=== PATIENT | female | born 1935 | race Caucasian/White ===

== ENCOUNTER → 2016-09-03 | Outpatient (CLI) | payer MEDICARE, OTHER ==
[~2016-09-03] MED LIST: ACET65TA OR; AMLO5TAB OR; ASPI325T OR; CALCIUM PO; COLA100C2 OR; DIOV80TA OR; LOPR50TA OR; MULTIVIT PO; PREVACID PO; VIT D PO; VITA500C OR
--- NOTE | 2016-09-03 14:54 | REP ---
LEFT ANKLE, FOUR VIEWS: HISTORY: Pain. There is no acute fracture or dislocation. The joint space is normal in appearance. IMPRESSION: There is no acute fracture or dislocation. Signed by Angelo Ellis MD 09/03/2016 03:03 P
== END ==
LOC: M WUC 14:12
PROVIDERS: ATTEND Physician Assistant
DX: M25.572 Pain in left ankle and joints of left foot (principal)

== ENCOUNTER → 2016-09-06 | Outpatient (CLI) | payer MEDICARE, OTHER ==
--- NOTE | 2016-09-06 14:03 | REP ---
SOFT-TISSUE ULTRASOUND LEFT ANKLE. Nonvascular. HISTORY: Swelling of the left ankle times 2 weeks. No known injury. Pain. Comparison radiographs September 03, 2016. FINDINGS: Soft tissue scanning is at performed at the medial aspect of the ankle in the area of swelling and pain. A small amount of fluid is seen at the level of the medial malleolus adjacent to a flexor tendon. This is compatible with a tendon sheath fluid. No disruption is seen in the tendon. IMPRESSION: Findings consistent with tendon sheath effusion question tendonitis. Signed by Lee Hernandez MD 09/06/2016 04:49 P
== END ==
LOC: M RAD 12:49
PROVIDERS: ATTEND Physician Assistant
DX: M25.572 Pain in left ankle and joints of left foot (principal); M25.472 Effusion, left ankle

== ENCOUNTER → 2017-01-31 | Outpatient (REF) | payer MEDICARE, OTHER ==
[2017-01-31 12:02] LABS: MEAN CORPUSCULAR HEMOGLOBIN 26.9 pg (27.0-33.0); MEAN CORPUSCULAR VOLUME 84.2 fl (80.0-96.0); PLATELET COUNT, AUTOMATED 140 10^3/uL (150-450); WHITE BLOOD COUNT 3.5 10^3/uL (4.0-10.0)
[2017-01-31 12:50] LABS: ALBUMIN 3.7 GM/DL (3.2-5.2); ALBUMIN/GLOBULIN RATIO 1.12 (1.00-1.93); ALKALINE PHOSPHATASE 79 U/L (45-117); ALT/SGPT 18 U/L (12-78); ANION GAP 7 MEQ/L (8-16); AST/SGOT 15 U/L (7-37); BILIRUBIN,TOTAL 0.7 MG/DL (0.2-1.0); BLOOD UREA NITROGEN 23 MG/DL (7-18); CALCIUM LEVEL 8.3 MG/DL (8.8-10.2); CARBON DIOXIDE LEVEL 30 MEQ/L (21-32); CHLORIDE LEVEL 108 MEQ/L (98-107); CREATININE FOR GFR 0.76 MG/DL (0.55-1.02); GLOMERULAR FILTRATION RATE > 60.0 (>32); GLUCOSE, FASTING 85 MG/DL (83-110); POTASSIUM SERUM 4.2 MEQ/L (3.5-5.1); SODIUM LEVEL 145 MEQ/L (136-145)
== END ==
LOC: M SFHCPLAZ 10:18
PROVIDERS: ATTEND Internal Medicine
DX: D69.6 Thrombocytopenia, unspecified (principal); I10 Essential (primary) hypertension

== ENCOUNTER → 2017-04-26 | Outpatient (CLI) | payer MEDICARE, OTHER ==
[2017-04-26 11:05] LABS: COLLAGEN ADP 146 SECONDS (56-103); COLLAGEN EPINEPHRINE > 300 SECONDS (74-162)
== END ==
LOC: M LAB 10:20
DX: H02.423 Myogenic ptosis of bilateral eyelids (principal)
CPT/HCPCS: 36415

== ENCOUNTER → 2017-05-06 | Day surgery (SDC) | payer MEDICARE, OTHER ==
[~2017-05-06] MED LIST changes: -ACET65TA OR; -AMLO5TAB OR; -ASPI325T OR; +BUPIVACAINE 0.75% 10 ML VIAL As Ordered; -CALCIUM PO; +CIPROFLOXACIN 0.3% OPHTH OINTMENT As Ordered; -COLA100C2 OR; -DIOV80TA OR; +HYALURONIDASE 150UNIT/ML 1ML VIAL (AMPHADASE) (J3470) As Ordered; +LIDOCAINE 1% MDV 20ML VIAL SQ; +LIDOCAINE 2% INJ 100 MG/5 ML SDV (FOR ANES.) As Ordered; +LIDOCAINE W/EPINEPHRINE 1% 20ML VIAL As Ordered; -LOPR50TA OR; +LR 500 ML IV; +MIDAZOLAM INJ 2 MG/2 ML VIAL (J2250) As Ordered; -MULTIVIT PO; +ONDANSETRON 4MG/2ML VIAL (J2405) As Ordered; -PREVACID PO; +PROPOFOL 200 MG/20 ML VIAL As Ordered; +ROCURONIUM BROMIDE 50 MG/5 ML VIAL As Ordered; +TOBRADEX OPHTH OINT 3.5 GM As Ordered; -VIT D PO; -VITA500C OR; +dexameTHASONE 4 MG/ML 1ML VIAL (J1100) IV; +fentaNYL 100 MCG/2 ML INJECTION (J3010) As Ordered
[2017-05-06 07:25] LABS: COLLAGEN EPINEPHRINE 205 SECONDS (74-162)
[2017-05-06 07:39] LABS: COLLAGEN ADP 125 SECONDS (56-103)
== END | disposition home or self-care (01) ==
LOC: M SDC 06:17
DX: H02.423 Myogenic ptosis of bilateral eyelids (principal); Z53.09 Procedure and treatment not carried out because of other contraindication
CPT/HCPCS: 36415

== ENCOUNTER → 2017-05-16 | Outpatient (CLI) | payer MEDICARE, OTHER ==
[2017-05-16 13:10] LABS: COLLAGEN EPINEPHRINE 187 SECONDS (74-162)
[2017-05-16 13:15] LABS: COLLAGEN ADP 131 SECONDS (56-103)
== END ==
LOC: M LAB 11:10
DX: H02.423 Myogenic ptosis of bilateral eyelids (principal)
CPT/HCPCS: 36415

== ENCOUNTER → 2017-07-08 | Outpatient (REF) | payer MEDICARE, OTHER ==
[2017-07-08 10:44] LABS: INR 1.12; PROTHROMBIN TIME 14.6 SECONDS (12.4-14.5)
[2017-07-08 10:45] LABS: PARTIAL THROMBOPLASTIN TIME 38.9 SECONDS (26.8-37.9)
[2017-07-08 10:47] LABS: COLLAGEN EPINEPHRINE 165 SECONDS (74-162)
[2017-07-08 10:53] LABS: COLLAGEN ADP 144 SECONDS (56-103)
[2017-07-10 14:13] LABS: COAGULATION FACTOR XI ACTIVITY 81 % (60-150); COAGULATION FACTOR XII ACTIVIT 78 % (50-150)
[2017-07-17 00:06] LABS: F8 ACTIVITY FOR F8 PANEL 51 % (57-163); F8 ACTIVITY vWB FOR F8 PANEL 61 % (50-200); F8 ANTIGEN FOR F8 PANEL 72 % (50-200); HMW KININOGEN ACTIVITY 89 % (.); INTERPRETATION: Note (.)
[2017-07-17 00:06] LABS: PREKALLIKREIN ASSAY 138 % (.)
== END ==
LOC: M LAB REF 10:09
DX: R79.1 Abnormal coagulation profile (principal)
CPT/HCPCS: 85246

== ENCOUNTER → 2017-07-19 | Outpatient (REF) | payer MEDICARE, OTHER ==
[2017-07-19 13:44] LABS: RHEUMATOID FACTOR QUANT < 10.0 IU/ML (<15.0)
[2017-07-19 13:44] LABS: INR 1.13; PROTHROMBIN TIME 14.7 SECONDS (12.4-14.5)
[2017-07-19 13:45] LABS: PARTIAL THROMBOPLASTIN TIME 38.8 SECONDS (26.8-37.9)
[2017-07-19 13:55] LABS: COLLAGEN EPINEPHRINE 233 SECONDS (74-162)
[2017-07-19 14:03] LABS: ERYTHROCYTE SEDIMENTATION RATE 15 mm/hr (0-30)
[2017-07-19 14:18] LABS: COLLAGEN ADP 124 SECONDS (56-103)
[2017-07-20 14:10] LABS: ANTINUCLEAR ANTIBODIES DIRECT Negative (Negative)
[2017-07-23 00:06] LABS: F8 ACTIVITY FOR F8 PANEL 28 % (57-163); F8 ACTIVITY vWB FOR F8 PANEL <10 % (50-200); F8 ANTIGEN FOR F8 PANEL 16 % (50-200); INTERPRETATION: Note (.)
== END ==
LOC: M LAB REF 13:19
DX: R79.1 Abnormal coagulation profile (principal)
CPT/HCPCS: 85246

== ENCOUNTER → 2017-07-24 | Outpatient (REF) | payer MEDICARE, OTHER ==
[2017-07-24 11:37] LABS: COLLAGEN ADP 128 SECONDS (56-103); COLLAGEN EPINEPHRINE 211 SECONDS (74-162)
[2017-07-24 11:58] LABS: INR 1.07; PROTHROMBIN TIME 14.1 SECONDS (12.4-14.5)
== END ==
LOC: M LAB REF 11:00
DX: R79.1 Abnormal coagulation profile (principal)
CPT/HCPCS: 85610

== ENCOUNTER → 2017-08-06 | Outpatient (REF) | payer MEDICARE, OTHER | LOC: M LAB REF 12:55 | DX: R79.1 Abnormal coagulation profile (principal) | CPT/HCPCS: 85245 ==

== ENCOUNTER 2017-08-10 02:05 | Emergency (ER) | payer MEDICARE, OTHER ==
[2017-08-10] MEDS: METOPROLOL TART 50 MG TAB PO (02:45)
[2017-08-10 02:53] LABS: INR 1.09; PROTHROMBIN TIME 14.3 SECONDS (12.4-14.5)
[2017-08-10 02:54] LABS: BASO % 0.5 % (0.0-1.0); EOS % 0.9 % (0.0-3.0); HEMATOCRIT 40.2 % (36.0-47.0); HEMOGLOBIN 13.1 g/dl (12.0-15.5); IMMATURE GRANULOCYTE % 0.7 % (0-3.0); LYMPH # 1.8 10^3/uL (1.5-4.5); LYMPH % 41.9 % (24.0-44.0); MEAN CORPUSCULAR HEMOGLOBIN 26.7 pg (27.0-33.0); MEAN CORPUSCULAR HGB CONC 32.6 g/dl (32.0-36.5); MEAN CORPUSCULAR VOLUME 81.9 fl (80.0-96.0); MONO % 22.4 % (0.0-5.0); NEUTROPHILS # 1.4 10^3/uL (1.8-7.7); NEUTROPHILS % 33.6 % (36.0-66.0); PARTIAL THROMBOPLASTIN TIME 37.4 SECONDS (26.8-37.9); PLATELET COUNT, AUTOMATED 111 10^3/uL (150-450); RED BLOOD COUNT 4.91 10^6/uL (4.00-5.40); RED CELL DISTRIBUTION WIDTH 13.9 % (11.5-14.5); WHITE BLOOD COUNT 4.3 10^3/uL (4.0-10.0)
[2017-08-10 03:02] LABS: ANION GAP 5 MEQ/L (8-16); BLOOD UREA NITROGEN 23 MG/DL (7-18); CALCIUM LEVEL 9.1 MG/DL (8.8-10.2); CARBON DIOXIDE LEVEL 30 MEQ/L (21-32); CHLORIDE LEVEL 109 MEQ/L (98-107); CK-MB VALUE MASS 1.4 NG/ML (<3.6); CPK CREATINE PHOSPHOKINASE 115 U/L (26-192); CREATININE FOR GFR 0.87 MG/DL (0.55-1.30); GLOMERULAR FILTRATION RATE > 60.0 (>32); GLUCOSE, FASTING 122 MG/DL (70-100); MB/CK RELATIVE INDEX 1.21 (< OR =4); POTASSIUM SERUM 4.1 MEQ/L (3.5-5.1); SODIUM LEVEL 144 MEQ/L (136-145); TROPONIN I < 0.02 NG/ML (< 0.10)
[2017-08-10] MEDS: DIGOXIN INJ 0.5 MG/2 ML AMP (J1160) IV (03:39)
[2017-08-10] MEDS: NS 500 ML IV (04:00)
[2017-08-10] MEDS: METOPROLOL TART 25 MG TABLET PO (04:45)
== END 2017-08-10 05:35 | disposition home or self-care (01) ==
LOC: M ED 02:05
DX: I48.91 Unspecified atrial fibrillation (principal); I10 Essential (primary) hypertension; K21.9 Gastro-esophageal reflux disease without esophagitis; D68.0 Von Willebrand disease; Z79.899 Other long term (current) drug therapy; Z91.040 Latex allergy status; Z88.0 Allergy status to penicillin; Z88.8 Allergy status to other drugs, medicaments and biological substances

== ENCOUNTER 2017-08-10 11:56 | Inpatient (IN) | payer MEDICARE, OTHER ==
[2017-08-10 12:51] LABS: BASO % 0.4 % (0.0-1.0); HEMATOCRIT 39.5 % (36.0-47.0); HEMOGLOBIN 12.8 g/dl (12.0-15.5); LYMPH # 1.4 10^3/uL (1.5-4.5); LYMPH % 28.4 % (24.0-44.0); MEAN CORPUSCULAR HEMOGLOBIN 26.4 pg (27.0-33.0); MEAN CORPUSCULAR HGB CONC 32.4 g/dl (32.0-36.5); MEAN CORPUSCULAR VOLUME 81.4 fl (80.0-96.0); MONO # 1.2 10^3/uL (0.0-0.8); MONO % 25.9 % (0.0-5.0); NEUTROPHILS # 2.1 10^3/uL (1.8-7.7); NEUTROPHILS % 44.3 % (36.0-66.0); PLATELET COUNT, AUTOMATED 106 10^3/uL (150-450); RED BLOOD COUNT 4.85 10^6/uL (4.00-5.40); RED CELL DISTRIBUTION WIDTH 13.8 % (11.5-14.5); WHITE BLOOD COUNT 4.8 10^3/uL (4.0-10.0)
[2017-08-10 13:00] LABS: INR 1.11; PROTHROMBIN TIME 14.5 SECONDS (12.4-14.5)
[2017-08-10 13:01] LABS: PARTIAL THROMBOPLASTIN TIME 36.9 SECONDS (26.8-37.9)
[2017-08-10 13:32] LABS: ANION GAP 8 MEQ/L (8-16); BLOOD UREA NITROGEN 20 MG/DL (7-18); CALCIUM LEVEL 8.9 MG/DL (8.8-10.2); CARBON DIOXIDE LEVEL 26 MEQ/L (21-32); CHLORIDE LEVEL 110 MEQ/L (98-107); CPK CREATINE PHOSPHOKINASE 119 U/L (26-192); CREATININE FOR GFR 0.83 MG/DL (0.55-1.30); FREE T4 1.16 NG/DL (0.76-1.46); GLOMERULAR FILTRATION RATE > 60.0 (>32); GLUCOSE, FASTING 105 MG/DL (70-100); POTASSIUM SERUM 4.1 MEQ/L (3.5-5.1); SODIUM LEVEL 144 MEQ/L (136-145); TROPONIN I < 0.02 NG/ML (< 0.10)
[2017-08-10 13:38] LABS: CK-MB VALUE MASS 1.4 NG/ML (<3.6); MB/CK RELATIVE INDEX 1.17 (< OR =4)
[2017-08-10] MEDS: DIGOXIN INJ 0.5 MG/2 ML AMP (J1160) IV (14:31)
[2017-08-10] MEDS: METOPROLOL TART 25 MG TABLET PO ×2 (14:34→22:32)
[2017-08-10] MEDS: METOPROLOL TART 50 MG TAB PO (14:34)
[2017-08-10] MEDS: METOPROLOL 5 MG/5 ML VIAL IV ×3 (14:44→14:59)
[2017-08-10] MEDS: RIVAROXABAN 20 MG TAB (XARELTO) PO (15:09)
[2017-08-10] MEDS ORDERED: ACETAMINOPHEN TAB 650MG DOSE (2X325MG) PO (18:30)
[2017-08-11 05:21] LABS: FREE T4 1.13 NG/DL (0.76-1.46)
[2017-08-11 05:26] LABS: DIGOXIN LEVEL 1.1 NG/ML (0.5-2.0)
[2017-08-11 07:17] LABS: ANION GAP 9 MEQ/L (8-16); BLOOD UREA NITROGEN 24 MG/DL (7-18); CALCIUM LEVEL 8.5 MG/DL (8.8-10.2); CARBON DIOXIDE LEVEL 26 MEQ/L (21-32); CHLORIDE LEVEL 110 MEQ/L (98-107); CREATININE FOR GFR 0.89 MG/DL (0.55-1.30); GLOMERULAR FILTRATION RATE > 60.0 (>32); GLUCOSE, FASTING 96 MG/DL (70-100); POTASSIUM SERUM 3.9 MEQ/L (3.5-5.1); SODIUM LEVEL 145 MEQ/L (136-145)
[2017-08-11] MEDS: VITAMIN D 1,000 INTERNATIONAL UNITS TABLET PO (09:26)
[2017-08-11] MEDS: RIVAROXABAN 15 MG TAB (XARELTO) PO ×2 (09:26→20:52)
[2017-08-11] MEDS: DIGOXIN 0.125 MG TAB PO (14:36)
[2017-08-11] MEDS: ATENOLOL 25 MG TAB PO (18:50)
[2017-08-12 05:53] LABS: BASO % 0.3 % (0.0-1.0); EOS % 0.5 % (0.0-3.0); HEMATOCRIT 37.7 % (36.0-47.0); HEMOGLOBIN 12.2 g/dl (12.0-15.5); IMMATURE GRANULOCYTE % 0.8 % (0-3.0); LYMPH # 1.5 10^3/uL (1.5-4.5); LYMPH % 40.1 % (24.0-44.0); MEAN CORPUSCULAR HEMOGLOBIN 26.5 pg (27.0-33.0); MEAN CORPUSCULAR HGB CONC 32.4 g/dl (32.0-36.5); MEAN CORPUSCULAR VOLUME 81.8 fl (80.0-96.0); MONO # 0.9 10^3/uL (0.0-0.8); MONO % 24.9 % (0.0-5.0); NEUTROPHILS # 1.3 10^3/uL (1.8-7.7); NEUTROPHILS % 33.4 % (36.0-66.0); RED BLOOD COUNT 4.61 10^6/uL (4.00-5.40); RED CELL DISTRIBUTION WIDTH 13.8 % (11.5-14.5); WHITE BLOOD COUNT 3.8 10^3/uL (4.0-10.0)
[2017-08-12] MEDS: ATENOLOL 25 MG TAB PO ×2 (06:00→18:12)
[2017-08-12 06:22] LABS: ANION GAP 5 MEQ/L (8-16); BLOOD UREA NITROGEN 25 MG/DL (7-18); CALCIUM LEVEL 8.3 MG/DL (8.8-10.2); CARBON DIOXIDE LEVEL 30 MEQ/L (21-32); CHLORIDE LEVEL 109 MEQ/L (98-107); CREATININE FOR GFR 0.92 MG/DL (0.55-1.30); GLOMERULAR FILTRATION RATE > 60.0 (>32); GLUCOSE, FASTING 106 MG/DL (70-100); POTASSIUM SERUM 3.7 MEQ/L (3.5-5.1); SODIUM LEVEL 144 MEQ/L (136-145)
[2017-08-12 06:23] LABS: PLATELET COUNT, AUTOMATED 91 10^3/uL (150-450)
[2017-08-12 06:24] LABS: IMMATURE PLATELET FRACTION % 11.1 % (0.0-9.6)
[2017-08-12] MEDS: VITAMIN D 1,000 INTERNATIONAL UNITS TABLET PO (08:18)
[2017-08-12] MEDS: RIVAROXABAN 15 MG TAB (XARELTO) PO ×2 (08:18→20:49)
[2017-08-12] MEDS: DIGOXIN 0.125 MG TAB PO (08:18)
[2017-08-13] MEDS: ATENOLOL 25 MG TAB PO (05:34)
[2017-08-13 05:45] LABS: BASO % 0.6 % (0.0-1.0); EOS % 0.8 % (0.0-3.0); HEMATOCRIT 37.7 % (36.0-47.0); HEMOGLOBIN 12.3 g/dl (12.0-15.5); IMMATURE GRANULOCYTE % 0.3 % (0-3.0); LYMPH # 1.4 10^3/uL (1.5-4.5); LYMPH % 39.8 % (24.0-44.0); MEAN CORPUSCULAR HEMOGLOBIN 26.8 pg (27.0-33.0); MEAN CORPUSCULAR HGB CONC 32.6 g/dl (32.0-36.5); MEAN CORPUSCULAR VOLUME 82.1 fl (80.0-96.0); MONO # 0.8 10^3/uL (0.0-0.8); MONO % 22.7 % (0.0-5.0); NEUTROPHILS # 1.3 10^3/uL (1.8-7.7); NEUTROPHILS % 35.8 % (36.0-66.0); RED BLOOD COUNT 4.59 10^6/uL (4.00-5.40); RED CELL DISTRIBUTION WIDTH 13.8 % (11.5-14.5); WHITE BLOOD COUNT 3.6 10^3/uL (4.0-10.0)
[2017-08-13 06:05] LABS: ANION GAP 8 MEQ/L (8-16); BLOOD UREA NITROGEN 25 MG/DL (7-18); CALCIUM LEVEL 8.2 MG/DL (8.8-10.2); CARBON DIOXIDE LEVEL 27 MEQ/L (21-32); CHLORIDE LEVEL 109 MEQ/L (98-107); CREATININE FOR GFR 0.86 MG/DL (0.55-1.30); GLOMERULAR FILTRATION RATE > 60.0 (>32); GLUCOSE, FASTING 101 MG/DL (70-100); SODIUM LEVEL 144 MEQ/L (136-145)
[2017-08-13 06:13] LABS: PLATELET COUNT, AUTOMATED 93 10^3/uL (150-450)
[2017-08-13 07:58] LABS: DIGOXIN LEVEL 0.9 NG/ML (0.5-2.0)
[2017-08-13] MEDS: DIGOXIN 0.125 MG TAB PO (08:18)
[2017-08-13] MEDS: VITAMIN D 1,000 INTERNATIONAL UNITS TABLET PO (08:19)
[2017-08-13] MEDS: RIVAROXABAN 15 MG TAB (XARELTO) PO (08:19)
== END 2017-08-13 11:21 | disposition home or self-care (01) | DRG 309 ==
LOC: M ED 11:56 → M ED INP 18:28 → M PCU 22:11
DX: I48.1 Persistent atrial fibrillation (principal); D68.0 Von Willebrand disease; Z79.82 Long term (current) use of aspirin; Z79.899 Other long term (current) drug therapy; Z88.0 Allergy status to penicillin; Z88.8 Allergy status to other drugs, medicaments and biological substances; Z88.1 Allergy status to other antibiotic agents; Z91.041 Radiographic dye allergy status; K21.9 Gastro-esophageal reflux disease without esophagitis; I11.9 Hypertensive heart disease without heart failure; I27.20 Pulmonary hypertension, unspecified

== ENCOUNTER → 2017-10-07 | Outpatient (CLI) | payer MEDICARE, OTHER ==
[2017-10-07 16:15] LABS: COLLAGEN EPINEPHRINE 171 SECONDS (74-162)
[2017-10-07 16:33] LABS: COLLAGEN ADP 127 SECONDS (56-103)
== END ==
LOC: M LAB 15:07
DX: H02.423 Myogenic ptosis of bilateral eyelids (principal)
CPT/HCPCS: 36415

== ENCOUNTER 2017-10-08 12:17 | Emergency (ER) | payer MEDICARE, OTHER ==
[2017-10-08] MEDS: NS 1,000 ML IV (12:49)
[2017-10-08] MEDS: NITROGLYCERIN 0.4 MG SUBL TABLET SL ×3 (12:50→13:07)
[2017-10-08] MEDS: ASPIRIN 81 MG CHEW TABLET PO (12:50)
[2017-10-08 13:05] LABS: BASO % 0.2 % (0.0-1.0); EOS # 0.1 10^3/uL (0.0-0.50); EOS % 1.4 % (0.0-3.0); HEMATOCRIT 38.8 % (36.0-47.0); HEMOGLOBIN 12.8 g/dl (12.0-15.5); IMMATURE GRANULOCYTE % 1.2 % (0-3.0); LYMPH # 1.4 10^3/uL (1.5-4.5); MEAN CORPUSCULAR HEMOGLOBIN 26.8 pg (27.0-33.0); MEAN CORPUSCULAR VOLUME 81.2 fl (80.0-96.0); MONO # 1.3 10^3/uL (0.0-0.8); MONO % 26.1 % (0.0-5.0); NEUTROPHILS # 2.1 10^3/uL (1.8-7.7); NEUTROPHILS % 43.1 % (36.0-66.0); PLATELET COUNT, AUTOMATED 108 10^3/uL (150-450); RED BLOOD COUNT 4.78 10^6/uL (4.00-5.40); RED CELL DISTRIBUTION WIDTH 13.7 % (11.5-14.5); WHITE BLOOD COUNT 4.9 10^3/uL (4.0-10.0)
[2017-10-08 13:25] LABS: INR 2.26; PROTHROMBIN TIME 25.4 SECONDS (12.1-14.4)
[2017-10-08 13:35] LABS: ALBUMIN/GLOBULIN RATIO 1.21 (1.00-1.93); ALKALINE PHOSPHATASE 74 U/L (45-117); ALT/SGPT 23 U/L (12-78); ANION GAP 10 MEQ/L (8-16); AST/SGOT 19 U/L (7-37); BILIRUBIN,DIRECT 0.2 MG/DL (0.0-0.2); BILIRUBIN,TOTAL 0.8 MG/DL (0.2-1.0); BLOOD UREA NITROGEN 17 MG/DL (7-18); CALCIUM LEVEL 8.8 MG/DL (8.8-10.2); CARBON DIOXIDE LEVEL 26 MEQ/L (21-32); CHLORIDE LEVEL 108 MEQ/L (98-107); CPK CREATINE PHOSPHOKINASE 115 U/L (26-192); CREATININE FOR GFR 0.78 MG/DL (0.55-1.30); GLOMERULAR FILTRATION RATE > 60.0 (>32); GLUCOSE, FASTING 96 MG/DL (70-100); POTASSIUM SERUM 3.9 MEQ/L (3.5-5.1); SODIUM LEVEL 144 MEQ/L (136-145); TOTAL PROTEIN 7.3 GM/DL (6.4-8.2); TROPONIN I 0.03 NG/ML (< 0.10)
[2017-10-08 13:36] LABS: CK-MB VALUE MASS 1.7 NG/ML (<3.6); MB/CK RELATIVE INDEX 1.47 (< OR =4)
[2017-10-08 13:48] LABS: DIGOXIN LEVEL 0.9 NG/ML (0.5-2.0)
[2017-10-08 18:46] LABS: CPK CREATINE PHOSPHOKINASE 97 U/L (26-192); TROPONIN I 0.03 NG/ML (< 0.10)
[2017-10-08 18:47] LABS: CK-MB VALUE MASS 1.5 NG/ML (<3.6); MB/CK RELATIVE INDEX 1.54 (< OR =4)
== END 2017-10-08 19:23 | disposition home or self-care (01) ==
LOC: M ED 12:17
DX: R07.89 Other chest pain (principal); I10 Essential (primary) hypertension; I48.91 Unspecified atrial fibrillation; I25.10 Atherosclerotic heart disease of native coronary artery without angina pectoris; Z82.49 Family history of ischemic heart disease and other diseases of the circulatory system; Z79.899 Other long term (current) drug therapy; Z79.01 Long term (current) use of anticoagulants; Z88.0 Allergy status to penicillin; Z88.1 Allergy status to other antibiotic agents; Z88.8 Allergy status to other drugs, medicaments and biological substances; Z91.041 Radiographic dye allergy status
CPT/HCPCS: 71045

== ENCOUNTER → 2017-12-06 | Outpatient (CLI) | payer MEDICARE, OTHER | LOC: M WUC 11:26 | DX: S40.011A Contusion of right shoulder, initial encounter (principal); S40.021A Contusion of right upper arm, initial encounter; X58.XXXA Exposure to other specified factors, initial encounter; Y92.89 Other specified places as the place of occurrence of the external cause | CPT/HCPCS: 73030 ==

== ENCOUNTER → 2018-01-28 | Outpatient (REF) | payer MEDICARE, OTHER ==
[2018-01-28 10:48] LABS: HEMATOCRIT 38.4 % (36.0-47.0); HEMOGLOBIN 12.1 g/dl (12.0-15.5); MEAN CORPUSCULAR HEMOGLOBIN 25.9 pg (27.0-33.0); MEAN CORPUSCULAR HGB CONC 31.5 g/dl (32.0-36.5); MEAN CORPUSCULAR VOLUME 82.1 fl (80.0-96.0); PLATELET COUNT, AUTOMATED 111 10^3/uL (150-450); RED BLOOD COUNT 4.68 10^6/uL (4.00-5.40); RED CELL DISTRIBUTION WIDTH 14.2 % (11.5-14.5); WHITE BLOOD COUNT 4.6 10^3/uL (4.0-10.0)
[2018-01-28 10:59] LABS: ALBUMIN 3.7 GM/DL (3.2-5.2); ALBUMIN/GLOBULIN RATIO 1.09 (1.00-1.93); ALKALINE PHOSPHATASE 96 U/L (45-117); ALT/SGPT 29 U/L (12-78); ANION GAP 9 MEQ/L (8-16); AST/SGOT 25 U/L (7-37); BILIRUBIN,TOTAL 0.7 MG/DL (0.2-1.0); BLOOD UREA NITROGEN 21 MG/DL (7-18); CALCIUM LEVEL 8.4 MG/DL (8.8-10.2); CARBON DIOXIDE LEVEL 29 MEQ/L (21-32); CHLORIDE LEVEL 106 MEQ/L (98-107); CHOLESTEROL LEVEL 174 MG/DL (<200); CHOLESTEROL RISK RATIO 3.866 (<5); CREATININE FOR GFR 0.81 MG/DL (0.55-1.30); GLOMERULAR FILTRATION RATE > 60.0 (>32); GLUCOSE, FASTING 100 MG/DL (70-100); HDL CHOLESTEROL 45 MG/DL (>40); LDL CHOLESTEROL 76 MG/DL (<100); MAGNESIUM LEVEL 2.5 MG/DL (1.8-2.4); NON-HDL-C 129 MG/DL; POTASSIUM SERUM 3.8 MEQ/L (3.5-5.1); SODIUM LEVEL 144 MEQ/L (136-145); TOTAL PROTEIN 7.1 GM/DL (6.4-8.2); TRIGLYCERIDES LEVEL 265 MG/DL (<150)
== END ==
LOC: M SFHCPLAZ 08:00
DX: D69.6 Thrombocytopenia, unspecified (principal); I10 Essential (primary) hypertension
CPT/HCPCS: 83735

== ENCOUNTER → 2018-05-02 | Outpatient (REF) | payer MEDICARE, OTHER ==
[~2018-05-02] MED LIST changes: +ACET65TA PO; +AMLO5TAB OR; +AMLO5TAB6 PO; +ASPI325T OR; +ASPI325T PO; +ATEN25TA PO; +ATEN50TA2 PO; +BIOT1CAP2 PO; -BUPIVACAINE 0.75% 10 ML VIAL As Ordered; +CALC1TAB21 PO; +CALCIUM PO; +CARV25TA PO; +CENTCHW4 PO; -CIPROFLOXACIN 0.3% OPHTH OINTMENT As Ordered; +COLA100C2 OR; +DIGO0.12 PO; +DIOV80TA OR; +FEXO180T58 PO; +FLUTISP; -HYALURONIDASE 150UNIT/ML 1ML VIAL (AMPHADASE) (J3470) As Ordered; +LANS30CA PO; -LIDOCAINE 1% MDV 20ML VIAL SQ; -LIDOCAINE 2% INJ 100 MG/5 ML SDV (FOR ANES.) As Ordered; -LIDOCAINE W/EPINEPHRINE 1% 20ML VIAL As Ordered; +LOPR50TA OR; -LR 500 ML IV; -MIDAZOLAM INJ 2 MG/2 ML VIAL (J2250) As Ordered; +MULTIVIT PO; -ONDANSETRON 4MG/2ML VIAL (J2405) As Ordered; +PREVACID PO; -PROPOFOL 200 MG/20 ML VIAL As Ordered; -ROCURONIUM BROMIDE 50 MG/5 ML VIAL As Ordered; +STIM1.5S; -TOBRADEX OPHTH OINT 3.5 GM As Ordered; +VIT D PO; +VITA100067 PO; +VITA500C PO; +XARE15TA PO; -dexameTHASONE 4 MG/ML 1ML VIAL (J1100) IV; -fentaNYL 100 MCG/2 ML INJECTION (J3010) As Ordered
[2018-05-02 14:20] LABS: ALBUMIN 3.7 GM/DL (3.2-5.2); CALCIUM LEVEL 8.5 MG/DL (8.8-10.2); CREATININE FOR GFR 0.97 MG/DL (0.55-1.30); GLOMERULAR FILTRATION RATE 58.5 (>32); PHOSPHORUS LEVEL 2.4 MG/DL (2.5-4.9); POTASSIUM SERUM 3.9 MEQ/L (3.5-5.1)
== END ==
LOC: M LABDRAW1 13:07
PROVIDERS: ATTEND Internal Medicine Cardiovascular Disease
DX: I11.9 Hypertensive heart disease without heart failure (principal)

== ENCOUNTER → 2018-07-22 | Outpatient (REF) | payer MEDICARE, OTHER ==
[~2018-07-22] MED LIST changes: +ASPI-1 PO; -ASPI325T PO
[2018-07-22 10:31] LABS: HEMATOCRIT 36.6 % (36.0-47.0); HEMOGLOBIN 11.7 g/dl (12.0-15.5); MEAN CORPUSCULAR VOLUME 84.5 fl (80.0-96.0); PLATELET COUNT, AUTOMATED 99 10^3/uL (150-450); RED BLOOD COUNT 4.33 10^6/uL (4.00-5.40); WHITE BLOOD COUNT 6.1 10^3/uL (4.0-10.0)
[2018-07-22 10:58] LABS: ALBUMIN 4.2 GM/DL (3.2-5.2); BILIRUBIN,TOTAL 0.7 MG/DL (0.2-1.0); CALCIUM LEVEL 9.2 MG/DL (8.8-10.2); CHOLESTEROL RISK RATIO 4.1 (<5); CREATININE FOR GFR 1.12 MG/DL (0.55-1.30); GLOMERULAR FILTRATION RATE 49.6 (>32); MAGNESIUM LEVEL 2.2 MG/DL (1.8-2.4); POTASSIUM SERUM 3.9 MEQ/L (3.5-5.1); TOTAL PROTEIN 7.2 GM/DL (6.4-8.2)
== END ==
LOC: M SFHCPLAZ 08:16
PROVIDERS: ATTEND Internal Medicine
DX: D69.6 Thrombocytopenia, unspecified (principal); I10 Essential (primary) hypertension

== ENCOUNTER → 2018-10-07 | Outpatient (CLI) | payer MEDICARE, OTHER ==
--- NOTE | 2018-10-14 12:02 | SLEEPCENT ---
DATE OF PROCEDURE: 10/07/2018 ORDERED BY: Dr. Vergara Nocturnal polysomnography was performed for evaluation of sleep physiology in this patient with excessive daytime somnolence. 7 hours and 37 minutes of data were reviewed. There were 279 minutes of sleep identified. Sleep latency was normal at 15 minutes. Rapid eye movement (REM) latency was normal at 59-minutes. Sleep architecture was poor with periods of wake. There were two REM cycles noted. Overall sleep efficiency was 62%. Electrocardiogram showed atrial fibrillation with an average heart rate of 60 beats per minute. Electroencephalogram (EEG) showed reasonably normal waveforms for awake and sleep. There were 181 respiratory events identified of 10 seconds in duration or greater for an apnea-hypopnea index of 38.9. Having clearly established the presence of obstructive sleep apnea syndrome early in the study, testing was stopped shortly before 01:00 a.m. for the application of pressure therapy. The patient was fit with a [employer] full-face mask of small size, 4 cm of water pressure were applied to the circuit, and the lights were extinguished. Throughout the remaining portions of study, pressure titration was performed to an optimal pressure of +12 with which the patient slept through REM without respiratory event or oxygen desaturation. IMPRESSION: Obstructive sleep apnea syndrome (G47.33). Apnea-hypopnea index 38.9. RECOMMENDATIONS: Nightly use of pressure therapy 12 cm of water.
== END ==
LOC: M SLEEP 19:39
PROVIDERS: ATTEND Internal Medicine Pulmonary Disease
DX: G47.33 Obstructive sleep apnea (adult) (pediatric) (principal)

== ENCOUNTER → 2019-01-19 | Outpatient (CLI) | payer MEDICARE, OTHER ==
[2019-01-19 12:52] LABS: BASO % 0.2 % (0.0-1.0); EOS % 0.4 % (0.0-3.0); HEMATOCRIT 31.1 % (36.0-47.0); HEMOGLOBIN 9.7 g/dl (12.0-15.5); LYMPH # 1.1 10^3/uL (1.5-5.0); LYMPH % 24.6 % (24.0-44.0); MEAN CORPUSCULAR HEMOGLOBIN 26.2 pg (27.0-33.0); MEAN CORPUSCULAR HGB CONC 31.2 g/dl (32.0-36.5); MEAN CORPUSCULAR VOLUME 84.1 fl (80.0-96.0); MONO # 1.1 10^3/uL (0.0-0.8); NEUTROPHILS # 2.3 10^3/uL (1.5-8.5); NEUTROPHILS % 50.7 % (36.0-66.0); WHITE BLOOD COUNT 4.6 10^3/uL (4.0-10.0)
[2019-01-19 12:54] LABS: ALBUMIN 3.8 GM/DL (3.2-5.2); BILIRUBIN,TOTAL 0.6 MG/DL (0.2-1.0); CALCIUM LEVEL 8.9 MG/DL (8.8-10.2); CHOLESTEROL RISK RATIO 3.288 (<5); CREATININE FOR GFR 1.13 MG/DL (0.55-1.30); GLOMERULAR FILTRATION RATE 49.1 (>32); MAGNESIUM LEVEL 2.1 MG/DL (1.8-2.4); TOTAL PROTEIN 7.2 GM/DL (6.4-8.2)
[2019-01-19 13:01] LABS: PLATELET COUNT, AUTOMATED 92 10^3/uL (150-450)
== END ==
LOC: M WUC 09:00
PROVIDERS: ATTEND Internal Medicine
DX: D69.6 Thrombocytopenia, unspecified (principal); I10 Essential (primary) hypertension

== ENCOUNTER → 2019-01-26 | Outpatient (REF) | payer MEDICARE, OTHER ==
[~2019-01-26] MED LIST changes: -DIGO0.12 PO; +DIGO0.123 PO
[2019-01-26 13:33] LABS: BASO % 0.5 % (0.0-1.0); EOS % 0.5 % (0.0-3.0); HEMATOCRIT 32.3 % (36.0-47.0); HEMOGLOBIN 9.9 g/dl (12.0-15.5); LYMPH # 0.9 10^3/uL (1.5-5.0); LYMPH % 23.4 % (24.0-44.0); MEAN CORPUSCULAR HEMOGLOBIN 25.7 pg (27.0-33.0); MEAN CORPUSCULAR HGB CONC 30.7 g/dl (32.0-36.5); MEAN CORPUSCULAR VOLUME 83.9 fl (80.0-96.0); MONO # 1.2 10^3/uL (0.0-0.8); MONO % 29.2 % (0.0-5.0); NEUTROPHILS # 1.8 10^3/uL (1.5-8.5); NEUTROPHILS % 45.6 % (36.0-66.0); RED BLOOD COUNT 3.85 10^6/uL (4.00-5.40)
[2019-01-26 13:35] LABS: PLATELET COUNT, AUTOMATED 91 10^3/uL (150-450)
== END ==
LOC: M SFHCPLAZ 11:36
PROVIDERS: ATTEND Internal Medicine
DX: D69.6 Thrombocytopenia, unspecified (principal)
CPT/HCPCS: 36415; 85025; 85049; 85055; G0463

== ENCOUNTER → 2019-04-06 | Outpatient (CLI) | payer MEDICARE, OTHER ==
[~2019-04-06] MED LIST changes: +CALCCAP4 PO; +CARV12.5 PO; +CHLO125TA PO; +FERR325T3 PO; +LOSA50TA88 PO; +QC A650T3 PO; +SPIR-10 PO; +VITA100054 PO; +XARE20TA PO
--- NOTE | 2019-04-06 10:10 | REP ---
Clinical: Hepatic cysts. Comparison: MRI dated 09/08/2012. Technique: Real time chaves scale and color evaluation using curved array transducer. Findings: Liver demonstrates normal size, contour, and parenchymal echo texture with multiple small scattered simple cysts up to 9 mm consistent with findings on prior MRI. Visualized portions of the pancreas are normal. The gallbladder is unremarkable and without gallstones, wall thickening, or pericholecystic fluid. No biliary ductal dilatation is appreciated and the common bile duct measures 5.2 mm diameter. The right kidney is normal in reniform shape without hydronephrosis and measures 8.9 x 5.4 x 4.4 cm. No ascites. Impression: 1. Small scattered hepatic cysts similar to MRI dated 2012. No further hepatic abnormality identified. 2. Mild atrophy to the right kidney is suspected. Electronically Signed by Favian Mejias MD 04/06/2019 10:01 A
== END ==
LOC: M RAD 08:46
PROVIDERS: ATTEND Internal Medicine Gastroenterology
DX: R93.3 Abnormal findings on diagnostic imaging of other parts of digestive tract (principal); K76.89 Other specified diseases of liver

== ENCOUNTER 2019-05-19 06:59 | Day surgery (SDC) | payer MEDICARE, OTHER ==
[~2019-05-19] VITALS: Ht 165.1 cm; Wt 68.5 kg
[~2019-05-19 06:59] MED LIST changes: +LIDOCAINE 2% INJ 100 MG/5 ML SDV (FOR ANES.) As Ordered ONE; +MULTCAP PO; +VITAD1000T PO; +fentaNYL 100 MCG/2 ML INJECTION (J3010) As Ordered ONE; +propofoL 200 MG/20 ML VIAL As Ordered ONE
[2019-05-19] MEDS ORDERED: propofoL 200 MG/20 ML VIAL As Ordered ONE ×3 (07:02→09:09)
[2019-05-19] MEDS ORDERED: NS 1,000 ML IV ONE (08:00)
--- NOTE | 2019-05-19 09:23 | ROOR ---
Patient Name: Valencia Fischer Procedure Date: 05/19/2019 8:19 AM Date of : 1935 Age: 84 Room: [facility] Gender: Female Note Status: Finalized Procedure: Upper GI endoscopy Indications: Iron deficiency anemia Providers: Jerry GAN MD Referring MD: Dar Quinn MD, Mireille Bonilla MD Requesting Provider: Medicines: Monitored Anesthesia Care Complications: No immediate complications. Procedure: Pre-Anesthesia Assessment: - The heart rate, respiratory rate, oxygen saturations, blood pressure, adequacy of pulmonary ventilation, and response to care were monitored throughout the procedure. The Endoscope was introduced through the mouth, and advanced to the second part of duodenum. The upper GI endoscopy was accomplished without difficulty. The patient tolerated the procedure well. Findings: Multiple 5 to 10 mm pedunculated and sessile polyps with stigmata of recent bleeding were found in the cardia, in the gastric fundus and in the gastric body. The polyp was removed with a cold snare. Polyp resection was incomplete, and the resected tissue was partially retrieved. The exam was otherwise without abnormality. Biopsies for histology were taken with a cold forceps in the second portion of the duodenum and in the third portion of the duodenum for evaluation of celiac disease. Impression: - Multiple gastric polyps. (100's small medium and large fundic gland appearing polyps, some slightly erythematous/hemorrhagic appearing). Multiple of the larger polyps removed. Polyp resection was incomplete, and the resected tissue was partially retrieved. - The examination was otherwise normal. - Biopsies were taken with a cold forceps for evaluation of celiac disease. Recommendation: - Await pathology results. - To reduce size and number of the fundic gland polyps, we should try to remove PPI meds (lansoprazole), and change to [id number] and/or sucralfate. - Discontinue Prevacid (lansoprazole). - Use sucralfate tablets 1 gram PO QID. - Use Pepcid (famotidine) 20 mg PO BID. - (the script was sent to your pharmacy on file) Jerry Gan MD Jerry GAN MD 05/19/2019 9:22:22 AM Electronically signed by Jerry GAN MD Number of Addenda: 0 Note Initiated On: 05/19/2019 8:19 AM Estimated Blood Loss: Estimated blood loss: none.
--- NOTE | 2019-05-19 09:26 | ROOR ---
Patient Name: Valencia Fischer Procedure Date: 05/19/2019 8:20 AM Date of : 1935 Age: 84 Room: [facility] Gender: Female Note Status: Finalized Procedure: Colonoscopy Indications: Iron deficiency anemia Providers: Jerry GAN MD Referring MD: Dar Quinn MD, Mireille Bonilla MD Requesting Provider: Medicines: Monitored Anesthesia Care Complications: No immediate complications. Procedure: Pre-Anesthesia Assessment: - The heart rate, respiratory rate, oxygen saturations, blood pressure, adequacy of pulmonary ventilation, and response to care were monitored throughout the procedure. The Colonoscope was introduced through the anus and advanced to the cecum, identified by appendiceal orifice and ileocecal valve. The colonoscopy was technically difficult and complex due to multiple diverticula in the colon. The patient tolerated the procedure well. The quality of the bowel preparation was good. Findings: The perianal and digital rectal examinations were normal. Two sessile polyps were found in the sigmoid colon and ascending colon. The polyps were diminutive in size. These polyps were removed with a cold snare. Resection and retrieval were complete. To prevent bleeding after the polypectomy, one hemostatic clip was successfully placed at the proximal ascending colon polypectomy site . There was no bleeding at the end of the procedure. Multiple small and large-mouthed diverticula were found in the sigmoid colon and descending colon. There was evidence of diverticular spasm. Internal hemorrhoids were found during retroflexion. The exam was otherwise without abnormality on direct and retroflexion views. Impression: - Two diminutive polyps in the sigmoid colon and in the ascending colon, removed with a cold snare. Resected and retrieved. Clip was placed. - Moderate diverticulosis in the sigmoid colon and in the descending colon. There was evidence of diverticular spasm. - Internal hemorrhoids. - The examination was otherwise normal on direct and retroflexion views. Recommendation: - Telephone endoscopist for pathology results in 2 weeks. Jerry Gan MD Jerry GAN MD 05/19/2019 9:25:38 AM Electronically signed by Jerry GAN MD Number of Addenda: 0 Note Initiated On: 05/19/2019 8:20 AM Estimated Blood Loss: Estimated blood loss: none.
[2019-05-19 10:00] VITALS: BP 137/58
== END 2019-05-19 10:05 | disposition home or self-care (01) ==
LOC: M OPP 06:59
PROVIDERS: ATTEND Internal Medicine Gastroenterology
DX: D50.9 Iron deficiency anemia, unspecified (principal); K57.30 Diverticulosis of large intestine without perforation or abscess without bleeding; K63.5 Polyp of colon; K64.8 Other hemorrhoids; K31.7 Polyp of stomach and duodenum; I48.91 Unspecified atrial fibrillation; G47.30 Sleep apnea, unspecified; I10 Essential (primary) hypertension; K21.9 Gastro-esophageal reflux disease without esophagitis; M19.90 Unspecified osteoarthritis, unspecified site; R06.83 Snoring; Z87.09 Personal history of other diseases of the respiratory system; Z79.01 Long term (current) use of anticoagulants; Z79.899 Other long term (current) drug therapy; Z91.040 Latex allergy status; Z88.0 Allergy status to penicillin; Z88.1 Allergy status to other antibiotic agents; Z88.8 Allergy status to other drugs, medicaments and biological substances
CPT/HCPCS: 43239; 43251; 45385; 88305; J3010

== ENCOUNTER 2019-07-07 15:50 | Inpatient (IN) | payer MEDICARE, OTHER ==
[2019-07-07] VITALS (9 sets, daily range): BP systolic 123–153; BP diastolic 59–67
[~2019-07-07] VITALS: Ht 165.1 cm; Wt 59.4 kg
[~2019-07-07 15:50] MED LIST changes: -ACET-897 PO; -BIOT1CAP3 PO; -CALCTAB7 PO; -FAMO40TA3 PO
[2019-07-07 17:05] LABS: BASO % 0.2 % (0.0-1.0); EOS % 0.2 % (0.0-3.0); LYMPH # 1.4 10^3/uL (1.5-5.0); MEAN CORPUSCULAR HEMOGLOBIN 25.9 pg (27.0-33.0); MEAN CORPUSCULAR HGB CONC 31.6 g/dl (32.0-36.5); MEAN CORPUSCULAR VOLUME 82.1 fl (80.0-96.0); MONO # 1.1 10^3/uL (0.0-0.8); MONO % 26.8 % (0.0-5.0); NEUTROPHILS # 1.7 10^3/uL (1.5-8.5); NEUTROPHILS % 40.3 % (36.0-66.0); RED BLOOD COUNT 2.51 10^6/uL (4.00-5.40); WHITE BLOOD COUNT 4.3 10^3/uL (4.0-10.0)
[2019-07-07 17:09] LABS: HEMATOCRIT 20.6 % (36.0-47.0); HEMOGLOBIN 6.5 g/dl (12.0-15.5); PLATELET COUNT, AUTOMATED 83 10^3/uL (150-450)
[2019-07-07 17:18] LABS: INR 3.02; PROTHROMBIN TIME 31.2 SECONDS (11.8-14.0)
[2019-07-07 17:19] LABS: BLOOD UREA NITROGEN 32 MG/DL (7-18); CALCIUM LEVEL 9.2 MG/DL (8.8-10.2); CARBON DIOXIDE LEVEL 29 MEQ/L (21-32); CHLORIDE LEVEL 104 MEQ/L (98-107); CK-MB VALUE MASS 1.5 NG/ML (<3.6); CPK CREATINE PHOSPHOKINASE 133 U/L (26-192); GLOMERULAR FILTRATION RATE 38.2 (>32); GLUCOSE, FASTING 112 MG/DL (70-100); MB/CK RELATIVE INDEX 1.13 (< OR =4); PARTIAL THROMBOPLASTIN TIME 58.1 SECONDS (25.0-38.4); POTASSIUM SERUM 3.8 MEQ/L (3.5-5.1); SODIUM LEVEL 140 MEQ/L (136-145); TROPONIN I < 0.02 NG/ML (< 0.10)
--- NOTE | 2019-07-07 17:46 | HPEPDOC ---
General Date of Admission July 07, 2019 at 17:25 Date of Service: July 07, 2019 Chief Complaint The patient is a 84-year-old female admitted with a reason for visit of Anemia. Source: Patient Exam Limitations: No limitations Timing/Duration: Other (6 months) Severity: Other (not applicable) Associated Symptoms: Other (weakness and fatigue) History of Present Illness This is 84 years old female with past medical history of GERD, multiple gastric polyps, hypertension, PAF on anticoagulation, mitral regurgitation, osteopenia, liver cirrhosis, thrombocytopenia, was sent from her PCPs office and was told to come to ER secondary to low platelets. Patient complaining of generalized tired ness and fatigue last 6 months, denies chest pain, shortness of breath, nausea, vomiting or diarrhea. Home Medications Scheduled Biotin (Biotin) 1 Mg Cap, 10 CAP PO DAILY, (Reported) Calcium Carbonate/Vitamin D3 (Calcium 600 + Vit D 400 Softgl) 1 Each Capsule, 1 CAP PO BID, (Reported) Carvedilol (Carvedilol) 12.5 Mg Tablet, 1 TAB PO BID, (Reported) Chlorthalidone (Chlorthalidone) 25 Mg Tablet, 12.5 MG PO DAILY, (Reported) Cholecalciferol (Vitamin D3) (Vitamin D3) 1,000 Unit Tablet, 2,000 UNITS PO DAILY, (Reported) Digoxin (Digoxin) 125 Mcg Tab, 0.125 MG PO DAILY Losartan Potassium (Losartan Potassium) 50 Mg Tablet, 50 MG PO DAILY, (Reported) Multivitamin (Multivitamins) 1 Each Capsule, 1 CAP PO DAILY, (Reported) Ranitidine HCl (Ranitidine HCl) 150 Mg Tablet, 1 TAB PO BID, (Reported) Rivaroxaban (Xarelto) 20 Mg Tablet, 20 MG PO DAILY, (Reported) with food Spironolactone (Spironolactone) 25 Mg Tablet, 0.5 TAB PO DAILY, (Reported) Sucralfate (Sucralfate) 1 Gm Tablet, 1 TAB PO QID, (Reported) Allergies Coded Allergies: Contrast Media (Verified Allergy, Intermediate, RASH, 05/05/19) Penicillins (Verified Allergy, Intermediate, rash, 05/05/19) erythromycin base (Verified Allergy, Intermediate, rash, 05/05/19) lisinopril (Verified Adverse Reaction, Intermediate, cough, 05/05/19) Past Medical History Medical History GERD, hypertension, proximal atrial fibrillation, mitral regurgitation, osteopen ia, liver cyst thrombocytopenia, gastric polyps Surgical History Tonsillectomy, D&C, colonoscopy, TRAVIS/BSO urethral sling. The cardiac cath. Bilateral cataract extraction, right shoulder rotator cuff repair Family History Father had heart disease and mother had heart disease and breast cancer Social History * Smoker: former Smoker Alcohol: Denies Drugs: denies A-FIB/CHADSVASC A-FIB History Current/History of A-Fib/PAF?: Yes Current PO Anticoag Therapy: Yes Review of Systems Constitutional: Reports: Malaise, Weakness Eyes: Denies: Pain, Vision change, Conjunctivae inflammation, Eyelid inflammation, Redness, Other ENT: Denies: Head Aches, Ear Pain, Dysphagia, Sinus Congestion, Post Nasal Drip, Sore Throat, Epistaxis, Other Symptoms Skin: Denies: Rash, Lesions, Jaundice, Bruising, Itching, Dry, Breakdown, Nail Changes, Other Pulmonary: Denies: Dyspnea, Cough, Pleuritic Chest Pain, Other Symptoms Cardiovascular: Denies: Chest Pain, Palpitations, Orthopnea, Paroxysmal Noc. Dyspnea, Edema, Lt Headedness, Other Symptoms Gastrointestinal: Denies: Nausea, Vomiting, Abdominal Pain, Diarrhea, Constipation, Melena, Hematochezia, Other Symptoms Genitourinary: Denies: Dysuria, Frequency, Incontinence, Hematuria, Retention, Other Symptoms Hematologic: Denies: Bruising, Bleeding Excessively, Petecchia, Purpura, Enlarged Lymph Nodes, Other Hematologic Endocrine: Denies: Polydipsia, Polyphagia, Polyuria, Heat Intolerance, Cold Intolerance, Other Endocrine Sx Musculoskeletal: Denies: Neck Pain, Back Pain, Shoulder Pain, Arm Pain, Hand Pain, Leg Pain, Foot Pain, Joint Pain, Muscle Pain, Spasms, Other Symptoms Neurological: Denies: Weakness, Numbness, Incoordination, Change in speech, Confusion, Seizures, Other Symptoms Psych: Denies: Mood Normal, Anxiety, Depression, Memory Issues, Thoughts of Self Harm, Anger, Thoughts of Harming Other, Other Psych Physical Examination General Exam: Positive: Alert, Cooperative Eye Exam: Positive: PERRLA, Conjunctiva & lids normal ENT Exam: Positive: Atraumatic Neck Exam: Positive: Supple Chest Exam: Positive: Clear to auscultation, Normal air movement Heart Exam: Positive: Rate Normal, Normal S1, Normal S2 Abdomen Exam: Positive: Normal bowel sounds, Soft Extremity Exam: Positive: Normal pulses Skin Exam: Positive: Nl turgor and temperature Neuro Exam: Positive: Strength at 5/5 X4 ext, Sensation Intact, Cranial Nerves 3-12 NL Psych Exam: Positive: Mood NL, Oriented x 3 Vital Signs Vital Signs Date Time Temp Pulse Resp B/P (MAP) Pulse Ox O2 Delivery O2 Flow Rate FiO2 07/07/19 17:00 147/65 (92) 07/07/19 16:50 56 07/07/19 16:35 99 07/07/19 15:50 97.6 18 Room Air Laboratory Data Labs 24H Laboratory Tests 2 07/07/19 16:32: Immature Granulocyte % (Auto) 0.5, Neutrophils (%) (Auto) 40.3, Lymphocytes (%) (Auto) 32.0, Monocytes (%) (Auto) 26.8H, Eosinophils (%) (Auto) 0.2, Basophils (%) (Auto) 0.2, Neutrophils # (Auto) 1.7, Lymphocytes # (Auto) 1.4L, Monocytes # (Auto) 1.1H, Eosinophils # (Auto) 0.0, Basophils # (Auto) 0.0, Nucleated Red Blood Cells % (auto) 0.0, Prothrombin Time 31.2H, Prothromb Time International Ratio 3.02, Activated Partial Thromboplast Time 58.1H, Anion Gap 7L, Glomerular Filtration Rate 38.2, Lactic Acid Level 1.8, Calcium Level 9.2, Total Creatine Kinase 133, Creatine Kinase MB 1.5, Creatine Kinase MB Relative Index 1.13, Troponin I < 0.02 CBC/BMP Laboratory Tests 07/07/19 16:32 Problems (1) Anemia Onset Date: ~ 2018 Status: Acute Problem Text: [facility] Type and screen. 3 units of PRBC Patient has been ordered blood transfusion from emergency room after getting consent Patient's hemoglobin is 6.5, hematocrit 20.6 Recently had EGD and colonoscopy done which showed multiple moles that 100, gastric polyps and there were 2 polyps and colon which were resected Will call Dr. Bonilla in the morning for further recommendations. If she follows up with her for VWF deficiency and anemia Posttransfusion H&H Diet regular Activity as tolerated Antithrombotic stockings for DVT prophylaxis Hold eliquis (2) Afib Status: Chronic Problem Text: Atrial fibrillation with controlled ventricular response Telemetry monitoring Continue home medications Hold Eliquis (3) Low plasma von Willebrand factor (vWF) Status: Chronic Problem Text: Stable. Further, as per oncology (4) HTN (hypertension) Status: Chronic Problem Text: Under well control Continue present meds (5) Thrombocytopenia Status: Chronic Problem Text: Patient's platelet count is 83,000. At the present time I do not have her baseline platelet number, but will call oncology consult in a.m. for further recommendations Plan / VTE VTE Prophylaxis Ordered?: Yes CAITLIN GILL MD July 07, 2019 17:46
[2019-07-07] MEDS ORDERED: BIOT1CAP3 PO (17:53)
[2019-07-07] MEDS ORDERED: DIGO0.123 PO (17:53)
[2019-07-07] MEDS ORDERED: FAMO40TA3 PO (17:53)
[2019-07-07] MEDS ORDERED: ACET-897 PO (17:53)
[2019-07-07] MEDS ORDERED: CALCTAB7 PO (17:53)
[2019-07-07] MEDS: SUCRALFATE 1 GM TAB PO SCH (21:09)
[2019-07-07] MEDS: FAMOTIDINE 20 MG TAB PO SCH (21:09)
[2019-07-07] MEDS: CARVedilol 12.5 MG TAB PO SCH (21:10)
[2019-07-08] VITALS (8 sets, daily range): BP systolic 121–147; BP diastolic 53–85
[2019-07-08 06:10] LABS: MEAN CORPUSCULAR HEMOGLOBIN 26.6 pg (27.0-33.0); MEAN CORPUSCULAR HGB CONC 32.1 g/dl (32.0-36.5); MEAN CORPUSCULAR VOLUME 82.9 fl (80.0-96.0); WHITE BLOOD COUNT 4.7 10^3/uL (4.0-10.0)
[2019-07-08 06:39] LABS: ALBUMIN 3.2 GM/DL (3.2-5.2); BILIRUBIN,TOTAL 1.8 MG/DL (0.2-1.0); CALCIUM LEVEL 8.6 MG/DL (8.8-10.2); CREATININE FOR GFR 1.21 MG/DL (0.55-1.30); GLOMERULAR FILTRATION RATE 45.2 (>32); MAGNESIUM LEVEL 2.2 MG/DL (1.8-2.4); POTASSIUM SERUM 4.1 MEQ/L (3.5-5.1)
[2019-07-08 06:46] LABS: PLATELET COUNT, AUTOMATED 71 10^3/uL (150-450)
[2019-07-08 06:47] LABS: HEMOGLOBIN 9.3 g/dl (12.0-15.5)
--- NOTE | 2019-07-08 08:38 | ECGEPIP ---
[facility] - ED Test Date: 2019-07-07 Pat Name: KRISTEN PETERSEN Department: Room: - Gender: Female Legal Nurse Consultant: tyler : 1935 Requested By: QUINTON SHELL Order Number: [id number] Reading MD: Judah Barkley Measurements Intervals [place] Rate: 55 P: 14 NV: 148 QRS: 4 QRSD: 88 T: 5 QT: 406 QTc: 389 Interpretive Statements SINUS BRADYCARDIA NONSPECIFIC ST & T-WAVE ABNORMALITY SIMILAR TO 10/08/17 Electronically Signed on 07-08-2019 8:38:27 EDT by Judah Barkley
[2019-07-08] MEDS: VITAMIN D 1,000 INTERNATIONAL UNITS TABLET PO SCH (09:26)
[2019-07-08] MEDS: CARVedilol 12.5 MG TAB PO SCH ×2 (09:30→20:42)
[2019-07-08] MEDS: DIGOXIN 0.125 MG TAB PO SCH (09:31)
[2019-07-08] MEDS: LOSARTAN 50MG TABLET PO SCH (09:31)
[2019-07-08] MEDS: SUCRALFATE 1 GM TAB PO SCH ×4 (09:31→20:42)
--- NOTE | 2019-07-08 09:52 | IPNPDOC ---
Subjective Date Seen The patient was seen on 07/08/19. Subjective Chief Complaint/HPI Patient is comfortable offers no new complaints in no distress General: Denies: ROS Unobtainable, Chills, Night Sweats, Fatigue, Malaise, Normal Appetite, Other Symptoms Skin: Denies: Rash, Lesions, Jaundice, Bruising, Itching, Dry, Breakdown, Nail Changes, Other Pulmonary: Denies: Dyspnea, Cough, Pleuritic Chest Pain, Other Symptoms Cardiovascular: Denies: Chest Pain, Palpitations, Orthopnea, Paroxysmal Noc. Dyspnea, Edema, Lt Headedness, Other Symptoms Gastrointestinal: Denies: Nausea, Vomiting, Abdominal Pain, Diarrhea, Consti pation, Melena, Hematochezia, Other Symptoms Musculoskeletal: Denies: Neck Pain, Back Pain, Shoulder Pain, Arm Pain, Hand Pain, Leg Pain, Foot Pain, Joint Pain, Muscle Pain, Spasms, Other Symptoms Neurological: Denies: Weakness, Numbness, Incoordination, Change in speech, Confusion, Seizures, Other Symptoms Objective Physical Examination General Exam: Positive: Alert, Cooperative Eye Exam: Positive: PERRLA, Conjunctiva & lids normal ENT Exam: Positive: Atraumatic Neck Exam: Positive: Supple Chest Exam: Positive: Clear to auscultation, Normal air movement Heart Exam: Positive: Rate Normal, Normal S1, Normal S2 Abdomen Exam: Positive: Normal bowel sounds, Soft Extremity Exam: Positive: Normal pulses Skin Exam: Positive: Nl turgor and temperature Neuro Exam: Positive: Strength at 5/5 X4 ext, Sensation Intact, Cranial Nerves 3-12 NL Psych Exam: Positive: Mood NL, Oriented x 3 Assessment /Plan Problems (1) Anemia Onset Date: ~ 2018 Status: Acute Problem Text: Anemia of unknown etiology. Recently had an EGD and colonoscopy done with multiple polyps in the stomach and colon Patient is also on eliquis for A. fib, anticoagulation, which is on hold Patient's hemoglobin is 9.3, hematocrit 29.0. After the blood transfusion last night Will monitor patient's CBC daily GI consult, Dr. Fung covering Dr. Belcher has been called for further recommendations Also discussed with Dr. Heredia from oncology, as per Dr. Bonilla. Patient does not have a diagnosis of von Willebrand disease as it was ruled out and she also has thrombocytopenia, stable, but for last 2 years, she recommends to refer patient to our office once the GI workup is complete and when she is discharged home (2) Afib Status: Chronic Problem Text: Atrial fibrillation with controlled ventricular response Telemetry monitoring Continue home medications Hold Eliquis (3) HTN (hypertension) Status: Chronic Problem Text: Under well control Continue present meds (4) Thrombocytopenia Status: Chronic Problem Text: Patient's platelet count is 71,000. Today Will call Dr. Bonilla for further recommendations. The patient is asymptomatic (5) Type 1 von Willebrand disease Onset Date: ~ 2018 Status: Acute Problem Text: Patient is under care with Dr. Bonilla as outpatient Plan/VTE VTE Prophylaxis Ordered?: Yes VS, I&O, 24H, Fishbone Vital Signs/I&O Vital Signs Date Time Temp Pulse Resp B/P (MAP) Pulse Ox O2 Delivery O2 Flow Rate FiO2 07/08/19 09:31 61 07/08/19 09:30 142/64 07/08/19 06:00 97.3 18 94 Room Air I&O- Last 24 Hours up to 6 AM 07/08/19 06:00 Intake Total 3080 ml Output Total 600 ml Balance 2480 ml Laboratory Data 24H LABS Laboratory Tests 2 07/07/19 16:32: Immature Granulocyte % (Auto) 0.5, Neutrophils (%) (Auto) 40.3, Lymphocytes (%) (Auto) 32.0, Monocytes (%) (Auto) 26.8H, Eosinophils (%) (Auto) 0.2, Basophils (%) (Auto) 0.2, Neutrophils # (Auto) 1.7, Lymphocytes # (Auto) 1.4L, Monocytes # (Auto) 1.1H, Eosinophils # (Auto) 0.0, Basophils # (Auto) 0.0, Nucleated Red Blood Cells % (auto) 0.0, Prothrombin Time 31.2H, Prothromb Time International Ratio 3.02, Activated Partial Thromboplast Time 58.1H, Anion Gap 7L, Glomerular Filtration Rate 38.2, Lactic Acid Level 1.8, Calcium Level 9.2, Total Creatine Kinase 133, Creatine Kinase MB 1.5, Creatine Kinase MB Relative Index 1.13, Troponin I < 0.02 07/08/19 05:28: Nucleated Red Blood Cells % (auto) 0.0, Anion Gap 6L, Glomerular Filtration Rate 45.2, Calcium Level 8.6L, Magnesium Level 2.2, Total Bilirubin 1.8#H, Aspartate Amino Transf (AST/SGOT) 11, Alanine Aminotransferase (ALT/SGPT) 18, Alkaline Phosphatase 59, Total Protein 6.0L, Albumin 3.2, Albumin/Globulin Ratio 1.14 CBC/BMP Laboratory Tests 07/07/19 16:32 07/08/19 05:28 CAITLIN GILL MD July 08, 2019 09:52
[2019-07-08 09:56] LABS: INR 1.59; PROTHROMBIN TIME 18.7 SECONDS (11.8-14.0)
[2019-07-08] MEDS: CHLORTHALIDONE 12.5MG PER 1/2 TABLET PO SCH (10:02)
[2019-07-08] MEDS: SPIRONOLACTONE 12.5MG PER 1/2 TABLET PO SCH (10:02)
--- NOTE | 2019-07-08 11:06 | CR.PDOC ---
General Date of Consultation: July 08, 2019 Referring Provider: CAITLIN GILL MD Attending Physician: TOMI SMITH MD Consultation Primary physician/ hospitalist: Dr. Gill Reason for consult: Acute Blood Loss Anemia HPI: -- 84 year old female patient with atrial fibrillation on Xarelto, hypertension, type 2 Von Willebrand disease, history of gastric fundus polyps, chronic acid reflux, chronic thrombocytopenia (evaluated in hematology clinic in past), presented to [facility] for symptomatic anemia. Patient had stated that she had presented to her cardiologists office, Dr. Amezcua. At the time she had stated that she was feeling very tired and like she had no energy. She stated that she was having difficulty to complete simple tasks like climbing stairs. She states that normally she is able to complete all her ADLs on her own. She denied any chest pain or shortness of breath. A CBC was obtained at the time which demonstrated anemia. The patient was instructed to go the ER where she was subsequently admitted and received 3 units of PRBCs. Today the patient states that she feels much better. GI was consulted for further evaluation of her acute blood loss anemia She had upper and lower endoscopy in April [address] Gan ( detailed reports below).. She currently denies any blood in her stools. She denies dark tarry stools. She denies any hematemesis. She denies any abdominal pain. Pertinent negative GI symptoms: Patient denies fever, sick contacts, recent travel, nausea, vomiting, diarrhea, abdominal pain, loss of appetite, early satiety or unintentional weight loss. No history of hematemesis, melena or hematochezia. Patient reports regular bowel movements. Review of Systems: GI: as stated above CVS: Denies chest pain or pressure. Denies feelings of the heart racing or palpitations RS: Denies shortness of breath. Denies wheezing. 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 Eyes: No photophobia. Jaundice Home medications: reviewed. Antithrombotic agents - Xarelto Medical h/o: As above. Surgical h/o: None on abdomen. Social h/o: Denies alcohol or IV illicit drug use. She is a former smoker and quit many years ago before her first child Family h/o of GI cancers - Denies any history of GI cancers in the family Prior Endoscopies: When, who, if remember- findings --- EGD on 05/19/[address] Gan demonstrating > 100 gastric fundic gland polyps appearing slightly erythematous/hemorrhaging appearing. Polyp resection was incomplete at the time --- Colonoscopy on 05/19/2019 demonstrating diverticulosis of the sigmoid colon. Exam: Vitals: reviewed General: Awake, alert, and oriented. Appears in no acute distress. Lying comfortably in bed. Conversive HEENT: No conjunctival pallor or scleral icterus. Mucous membranes are pink and moist. Trachea is midline Chest: Clear vesicular breath sounds bilaterally. Good respiratory effort. No wheezes, rhonchi, or rales. Symmetric chest expansion. No accessory muscle use CVS: Irregularly irregular rhythm. Regular rate. No clicks, rubs, or murmurs Abdomen: Soft, non-distended. Non-tender. No rebound tenderness or guarding. No abdominal scars or hernias present. Normoactive bowel sounds throughout Rectal exam: Differed Extremities: No edema. Full and equal pulses in bilateral upper and lower ext remities COUN[employer] SALES PERSON: No focal neurological deficits Skin: no rash. Labs: reviewed. Imaging: reviewed. Impression: - Patient is an 84 year old female with a past medical history significant for atrial fibrillation on Xarelto, type 2 Von Willebrand disease, history of thrombocytopenia/pancytopenia, hypertension, and liver cysts who presented to [facility] with symptomatic anemia -- DDX includes upper GI bleed 2/2 gastric fundus polyps vs gastric ulcer vs AVMs vs less likely lower GI bleed ( no colon polyps in recent colonoscopy) Recommendations: - Patient educated about the test results, possible differential diagnoses and All questions answered. - Monitor Hemoglobin and Hematocrit and transfuse as appropriate to keep hemoglobin around 9gm/dL. - Will order Haptoglobin, LDH and Peripheral smear to evaluate for hemolytic process given anemia with thrombocytopenia - Continue H2 Blockers over PPI given history of Gastric fundus polyps - Continue sucralfate - Hold Xarelto for now if not contra-indicated. - Will consider Upper Endoscopy for therapeutic intervention tomorrow. The procedure, indications, risks (bleeding, perforation, infection, hypotension, respiratory depression, allergy, need for endotracheal intubation, surgery, colostomy, cardiac arrest, even ), benefits, limitations (e.g., missing a lesion), and all other alternatives (including no intervention) were explained to the patient who understood and agreed for the procedure. - Follow operative note for post procedure recommendations. Attending Addendum: -- The above resident findings were reviewed personally with patient, re- examined the patient, and agree with the above impression and recommendations. -- All patient questions were answered. Will proceed with EGD tomorrow and NPO orders for procedure were placed. Plan of care discussed with patient and primary team. Patient verbalized understanding and agreed with the plan. Vital Signs/I&O Vital Signs Date Time Temp Pulse Resp B/P (MAP) Pulse Ox O2 Delivery O2 Flow Rate FiO2 07/08/19 09:31 61 07/08/19 09:30 142/64 07/08/19 06:00 97.3 18 94 Room Air I&O- Last 24 Hours up to 6 AM 07/08/19 05:59 Intake Total 3080 ml Output Total 600 ml Balance 2480 ml Laboratory Data Labs 24H Laboratory Tests 2 07/07/19 16:32: Immature Granulocyte % (Auto) 0.5, Neutrophils (%) (Auto) 40.3, Lymphocytes (%) (Auto) 32.0, Monocytes (%) (Auto) 26.8H, Eosinophils (%) (Auto) 0.2, Basophils (%) (Auto) 0.2, Neutrophils # (Auto) 1.7, Lymphocytes # (Auto) 1.4L, Monocytes # (Auto) 1.1H, Eosinophils # (Auto) 0.0, Basophils # (Auto) 0.0, Nucleated Red Blood Cells % (auto) 0.0, Prothrombin Time 31.2H, Prothromb Time International Ratio 3.02, Activated Partial Thromboplast Time 58.1H, Anion Gap 7L, Glomerular Filtration Rate 38.2, Lactic Acid Level 1.8, Calcium Level 9.2, Total Creatine Kinase 133, Creatine Kinase MB 1.5, Creatine Kinase MB Relative Index 1.13, Troponin I < 0.02 07/08/19 05:28: Nucleated Red Blood Cells % (auto) 0.0, Prothrombin Time 18.7H, Prothromb Time International Ratio 1.59, Anion Gap 6L, Glomerular Filtration Rate 45.2, Calcium Level 8.6L, Magnesium Level 2.2, Total Bilirubin 1.8#H, Aspartate Amino Transf (AST/SGOT) 11, Alanine Aminotransferase (ALT/SGPT) 18, Alkaline Phosphatase 59, Total Protein 6.0L, Albumin 3.2, Albumin/Globulin Ratio 1.14 CBC/BMP Laboratory Tests 07/07/19 16:32 07/08/19 05:28 Allergies Coded Allergies: Contrast Media (Verified Allergy, Intermediate, RASH, 05/05/19) Penicillins (Verified Allergy, Intermediate, rash, 05/05/19) erythromycin base (Verified Allergy, Intermediate, rash, 05/05/19) lisinopril (Verified Adverse Reaction, Intermediate, cough, 05/05/19) Home Medications Scheduled Biotin (Biotin) 10,000 Mcg Capsule, 10,000 MCG PO DAILY, (Reported) Calcium Carbonate (Calcium) 600 Mg Tablet, 600 MG PO BID, (Reported) Carvedilol (Carvedilol) 12.5 Mg Tablet, 12.5 MG PO BID, (Reported) Chlorthalidone (Chlorthalidone) 25 Mg Tablet, 12.5 MG PO DAILY, (Reported) Cholecalciferol (Vitamin D3) (Vitamin D3) 1,000 Unit Tablet, 2,000 UNITS PO DAILY, (Reported) Digoxin (Digoxin) 125 Mcg Tablet, 125 MCG PO DAILY, (Reported) Famotidine (Famotidine) 40 Mg Tablet, 40 MG PO BID, (Reported) Losartan Potassium (Losartan Potassium) 50 Mg Tablet, 50 MG PO DAILY, (Reported) Multivitamin (Multivitamins) 1 Each Capsule, 1 CAP PO DAILY, (Reported) Rivaroxaban (Xarelto) 20 Mg Tablet, 20 MG PO DAILY, (Reported) Spironolactone (Spironolactone) 25 Mg Tablet, 12.5 MG PO 3XW, (Reported) MON, WED, FRI Sucralfate (Sucralfate) 1 Gm Tablet, 1 GM PO ACHS, (Reported) Scheduled PRN Acetaminophen (Tylenol Extra Strength) 500 Mg Tablet, 1,000 MG PO TID PRN for PAIN, (Reported) TRACIE RIVERA DO July 08, 2019 10:21 TOMI SMITH MD July 09, 2019 14:54
[2019-07-08 12:28] LABS: LDH LACTATE DEHYDROGENASE 196 U/L (84-246)
[2019-07-08] MEDS: FAMOTIDINE 20 MG TAB PO SCH (20:41)
[2019-07-09 06:00] VITALS: BP 139/55
[2019-07-09 06:32] LABS: INR 1.33; PROTHROMBIN TIME 16.2 SECONDS (11.8-14.0)
[2019-07-09] MEDS: SUCRALFATE 1 GM TAB PO SCH ×4 (07:30→20:42)
[2019-07-09] MEDS: VITAMIN D 1,000 INTERNATIONAL UNITS TABLET PO SCH (08:55)
[2019-07-09] MEDS: LOSARTAN 50MG TABLET PO SCH (08:59)
[2019-07-09] MEDS: CHLORTHALIDONE 12.5MG PER 1/2 TABLET PO SCH (08:59)
[2019-07-09] MEDS: CARVedilol 12.5 MG TAB PO SCH ×2 (08:59→21:00)
[2019-07-09] MEDS: DIGOXIN 0.125 MG TAB PO SCH (09:00)
--- NOTE | 2019-07-09 10:10 | IPNPDOC ---
Subjective Date Seen The patient was seen on 07/09/19. Subjective Chief Complaint/HPI Patient feeling better in no distress. Awaiting EGD with the GI today General: Denies: ROS Unobtainable, Chills, Night Sweats, Fatigue, Malaise, Normal Appetite, Other Symptoms Constitutional: Denies: Chills, Fever, Malaise, Night Sweats, Weakness, Fatigue, Weight Loss, Lethargy, Other Eyes: Denies: Pain, Vision change, Conjunctivae inflammation, Eyelid inflammation, Redness, Other Pulmonary: Denies: Dyspnea, Cough, Pleuritic Chest Pain, Other Symptoms Cardiovascular: Denies: Chest Pain, Palpitations, Orthopnea, Paroxysmal Noc. Dyspnea, Edema, Lt Headedness, Other Symptoms Gastrointestinal: Denies: Nausea, Vomiting, Abdominal Pain, Diarrhea, Constipation, Melena, Hematochezia, Other Symptoms Musculoskeletal: Denies: Neck Pain, Back Pain, Shoulder Pain, Arm Pain, Hand Pain, Leg Pain, Foot Pain, Joint Pain, Muscle Pain, Spasms, Other Symptoms Neurological: Denies: Weakness, Numbness, Incoordination, Change in speech, Confusion, Seizures, Other Symptoms Objective Physical Examination ENT Exam: Positive: Atraumatic Neck Exam: Positive: Supple Chest Exam: Positive: Clear to auscultation, Normal air movement Heart Exam: Positive: Rate Normal, Normal S1, Normal S2 Abdomen Exam: Positive: Normal bowel sounds, Soft Extremity Exam: Positive: Normal pulses Skin Exam: Positive: Nl turgor and temperature Neuro Exam: Positive: Strength at 5/5 X4 ext, Sensation Intact, Cranial Nerves 3-12 NL Assessment /Plan Problems (1) Anemia Onset Date: ~ 2018 Status: Acute Problem Text: Anemia of unknown etiology. Recently had an EGD and colonoscopy done with multiple polyps in the stomach and colon Patient is also on eliquis for A. fib, anticoagulation, which is on hold Patient's hemoglobin is pending today. His stat CBC is ordered Discussed with Dr. Fung yesterday Patient will probably need EGD to look for bleeding Will await till EGD is performed, then will decide with GI regarding the discharge planning and further care Continue nothing by mouth (2) Afib Status: Chronic Problem Text: Atrial fibrillation with controlled ventricular response Telemetry monitoring Continue home medications Anticoagulant is on hold till EGD is performed (3) HTN (hypertension) Status: Chronic Problem Text: Under well control Continue present meds (4) Thrombocytopenia Status: Chronic Problem Text: Patient's platelet count is 71,000. Today Discussed with Dr. Bonilla yesterday. Continue close monitoring, no further intervention at this time Also as per Dr. Bonilla. Patient does not have a diagnosis of dalia Willebrand disease, it was ruled out Plan/VTE VTE Prophylaxis Ordered?: Yes VS, I&O, 24H, Fishbone Vital Signs/I&O Vital Signs Date Time Temp Pulse Resp B/P (MAP) Pulse Ox O2 Delivery O2 Flow Rate FiO2 07/09/19 09:00 58 07/09/19 08:59 130/60 07/09/19 06:00 97.9 18 95 Room Air I&O- Last 24 Hours up to 6 AM 07/09/19 06:00 Intake Total 1395 ml Output Total 2000 ml Balance -605 ml Laboratory Data 24H LABS Laboratory Tests 2 07/08/19 20:50: Coronavirus (COVID-19)(PCR) NEGATIVE 07/09/19 05:23: Prothrombin Time 16.2H, Prothromb Time International Ratio 1.33 CAITLIN GILL MD July 09, 2019 10:10
[2019-07-09 10:17] LABS: HEMOGLOBIN 9.3 g/dl (12.0-15.5); MEAN CORPUSCULAR HGB CONC 32.1 g/dl (32.0-36.5); MEAN CORPUSCULAR VOLUME 84.3 fl (80.0-96.0); RED BLOOD COUNT 3.44 10^6/uL (4.00-5.40); WHITE BLOOD COUNT 4.6 10^3/uL (4.0-10.0)
[2019-07-09 10:22] LABS: PLATELET COUNT, AUTOMATED 71 10^3/uL (150-450)
[2019-07-09 14:00] VITALS: BP 116/46
[2019-07-09] MEDS ORDERED: LIDOCAINE 2% 100MG/5ML SDV (FOR ANES.) As Ordered ONE ×2 (14:42→15:40)
[2019-07-09] MEDS ORDERED: propofoL 200 MG/20 ML VIAL As Ordered ONE (14:42)
[2019-07-09] MEDS ORDERED: fentaNYL 100 MCG/2 ML INJECTION (J3010) As Ordered ONE ×2 (14:42→15:09)
[2019-07-09] MEDS ORDERED: propofoL 500 MG/50 ML VIAL As Ordered ONE (15:40)
--- NOTE | 2019-07-09 16:37 | ROOR ---
Patient Name: Valencia Fischer Procedure Date: 07/09/2019 3:40 PM Date of : 1935 Age: 84 Room: [facility] Gender: Female Note Status: Finalized Procedure: Upper GI endoscopy Indications: Acute post hemorrhagic anemia Providers: Philip Fung MD Referring MD: 2. Inpatient 2. Inpatient, Dar Quinn MD Requesting Provider: Medicines: Monitored Anesthesia Care Complications: No immediate complications. Procedure: Pre-Anesthesia Assessment: - Prior to the procedure, a History and Physical was performed, and patient medications and allergies were reviewed. The patient is competent. The risks and benefits of the procedure and the sedation options and risks were discussed with the patient. All questions were answered and informed consent was obtained. Patient identification and proposed procedure were verified by the physician, the nurse and the anesthesiologist in the procedure room. Mental Status Examination: normal. Airway Examination: normal oropharyngeal airway and neck mobility. Respiratory Examination: clear to auscultation. CV Examination: normal. Prophylactic Antibiotics: The patient does not require prophylactic antibiotics. Prior Anticoagulants: The patient has taken Xarelto (rivaroxaban), last dose was 1 day prior to procedure. ASA Grade Assessment: II - A patient with mild systemic disease. After reviewing the risks and benefits, the patient was deemed in satisfactory condition to undergo the procedure. The anesthesia plan was to use monitored anesthesia care (MAC). Immediately prior to administration of medications, the patient was re-assessed for adequacy to receive sedatives. The heart rate, respiratory rate, oxygen saturations, blood pressure, adequacy of pulmonary ventilation, and response to care were monitored throughout the procedure. The physical status of the patient was re-assessed after the procedure. The Endoscope was introduced through the mouth, and advanced to the second part of duodenum. The upper GI endoscopy was accomplished without difficulty. The patient tolerated the procedure well. Findings: The Z-line was irregular and was found 40 cm from the incisors. Multiple 7 to 20 mm sessile fundic gland polyps with bleeding and stigmata of recent bleeding were found in the gastric fundus and in the gastric body. An endoloop was maneuvered over the polyp stalk and closed at the mucosal attachment prior to removal in order to prevent bleeding. Resection and retrieval were complete using a suction (via the working channel). Two hemostatic clips were successfully placed. Verification of patient identification for the specimen was done by the physician and nurse using the patient's name, date and medical record number. The duodenal bulb and second portion of the duodenum were normal. Impression: - Z-line irregular, 40 cm from the incisors. - Multiple fundic gland polyps. Resected and retrieved. Clips were placed. - Normal duodenal bulb and second portion of the duodenum. Recommendation: - Patient has a contact number available for emergencies. The signs and symptoms of potential delayed complications were discussed with the patient. Return to normal activities tomorrow. Written discharge instructions were provided to the patient. - Resume previous diet. - Continue present medications. - Await pathology results. - Resume Xarelto (rivaroxaban) at prior dose in 2 days. Refer to primary physician for further adjustment of therapy. - Repeat upper endoscopy in 3 months for retreatment. - Return to GI clinic in [facility] (address [address], [address], [place] [address]) in 4 -- 6 weeks. Please call GI clinic @ [phone] for apppointment date and time. - Return to primary care physician. Philip Fung MD Philip Fung MD 07/09/2019 4:37:47 PM Electronically signed by Philip Fung MD Number of Addenda: 0 Note Initiated On: 07/09/2019 3:40 PM Estimated Blood Loss: Estimated blood loss was minimal.
[2019-07-09 16:55] VITALS: BP 128/84
[2019-07-09] MEDS: ACETAMINOPHEN TAB 650MG DOSE (2X325MG) PO PRN (18:42)
[2019-07-09] MEDS: FAMOTIDINE 20 MG TAB PO SCH (20:42)
[2019-07-09 22:00] VITALS: BP 117/46
[2019-07-10 06:00] VITALS: BP 132/57
[2019-07-10] MEDS: ACETAMINOPHEN TAB 650MG DOSE (2X325MG) PO PRN (06:00)
[2019-07-10 06:53] LABS: BASO % 0.2 % (0.0-1.0); EOS % 0.6 % (0.0-3.0); HEMATOCRIT 30.7 % (36.0-47.0); HEMOGLOBIN 9.8 g/dl (12.0-15.5); INR 1.28; LYMPH # 1.3 10^3/uL (1.5-5.0); LYMPH % 26.2 % (24.0-44.0); MEAN CORPUSCULAR HEMOGLOBIN 26.5 pg (27.0-33.0); MEAN CORPUSCULAR HGB CONC 31.9 g/dl (32.0-36.5); MONO # 1.3 10^3/uL (0.0-0.8); NEUTROPHILS # 2.3 10^3/uL (1.5-8.5); NEUTROPHILS % 46.8 % (36.0-66.0); PROTHROMBIN TIME 15.7 SECONDS (11.8-14.0)
[2019-07-10 06:55] LABS: PLATELET COUNT, AUTOMATED 72 10^3/uL (150-450)
[2019-07-10 06:57] LABS: ALBUMIN 3.2 GM/DL (3.2-5.2); BILIRUBIN,TOTAL 0.7 MG/DL (0.2-1.0); CREATININE FOR GFR 0.99 MG/DL (0.55-1.30); POTASSIUM SERUM 3.8 MEQ/L (3.5-5.1); TOTAL PROTEIN 6.2 GM/DL (6.4-8.2)
[2019-07-10] MEDS: SPIRONOLACTONE 12.5MG PER 1/2 TABLET PO SCH (09:40)
[2019-07-10] MEDS: VITAMIN D 1,000 INTERNATIONAL UNITS TABLET PO SCH (09:40)
[2019-07-10 09:41] VITALS: BP 136/58
[2019-07-10] MEDS: CARVedilol 12.5 MG TAB PO SCH (09:41)
[2019-07-10] MEDS: CHLORTHALIDONE 12.5MG PER 1/2 TABLET PO SCH (09:41)
[2019-07-10] MEDS: LOSARTAN 50MG TABLET PO SCH (09:41)
[2019-07-10] MEDS: DIGOXIN 0.125 MG TAB PO SCH (09:42)
[2019-07-10] MEDS: SUCRALFATE 1 GM TAB PO SCH (09:44)
--- NOTE | 2019-07-10 11:06 | DS.PDOC ---
Discharge Summary General Date of Admission July 07, 2019 at 17:25 Date of Discharge 07/10/19 Discharge Summary PROCEDURES PERFORMED DURING STAY: None. ADMITTING DIAGNOSES: 1. Anemia. DISCHARGE DIAGNOSES: 1. Anemia, upper GI bleed, multiple gastric polyps with active hemorrhage, atrial fibrillation, mitral regurg, osteopenia, liver cirrhosis, thrombocytopenia COMPLICATIONS/CHIEF COMPLAINT: Anemia. HISTORY OF PRESENT ILLNESS: This is 84 years old female with past medical history of GERD, multiple gastric polyps, hypertension, PAF on anticoagulation, mitral regurgitation, osteopenia, liver cirrhosis, thrombocytopenia, was sent from her PCPs office and was told to come to ER secondary to low platelets. Patient complaining of generalized tiredness and fatigue last 6 months, denies chest pain, shortness of breath, nausea, vomiting or diarrhea.. Anemia of unknown etiology. Recently had an EGD and colonoscopy done with multiple polyps in the stomach and colon Patient was on Xarelto for atrial fibrillation which was placed on hold And received blood transfusion during his stay. I and her hemoglobin remained stable on discharge. Her hemoglobin is 9.8. Patient had EGD performed by Dr. Fung which showed more than 100 polyps, some of them bleeding and he is snared some bleeders but there still was some active hemorrhage. Cardiac Dr. Fung this good chance the patient will bleed again in future as she has a massive amount of polyps in the stomach. I had spoken with Dr. Amezcua patient's syruper regarding restarting patient's anticoagulation with Xarelto, Dr. Amezcua thinks that the risks outweigh benefits and has recommended no anticoagulation including even aspirin at this time, He is a scheduled follow-up. Patient on July 28 in his office and will further decide about restarting any kind of anticoagulation at that time, patient was informed about stopping anticoagulation secondary to risks of severe bleeding from his stomach but also was informed that she has high risk of stroke secondary to A. fib. If not anticoagulated, but the risks are higher than any benefit at this time. Regarding thrombocytopenia . i had spoken with Dr. Bonilla. She did not recommend any intervention at this time but would like to follow patient as outpatient in the office as per scheduled appointment. ]. DISCHARGE MEDICATIONS: Please see below. ALLERGIES: Please see below. PHYSICAL EXAMINATION ON DISCHARGE: VITAL SIGNS: Please see below. GENERAL: Within normal limits HEENT: PERRLA, extraocular muscles intact NECK: Supple CARDIOVASCULAR EXAMINATION: S1, S2, regular RESPIRATORY EXAMINATION: Clear to A&P ABDOMINAL EXAMINATION: Benign EXTREMITIES: No clubbing, cyanosis, edema SKIN: Normal limits NEUROLOGICAL EXAMINATION: . No focal motor sensory deficit PSYCHIATRIC EXAMINATION: Normal LABORATORY DATA: Please see below. IMAGING: Not applicable PROGNOSIS: Good ACTIVITY: As tolerated. DIET: As tolerated DISCHARGE PLAN: Follow-up with Dr. James Montalvo as an outpatient DISPOSITION: . Home DISCHARGE INSTRUCTIONS: 1. As per discharge instructions. ITEMS TO FOLLOWUP ON ON OUTPATIENT: 1. Follow with Dr. James Montalvo as an outpatient. DISCHARGE CONDITION: Stable. TIME SPENT ON DISCHARGE: 35 minutes. Vital Signs/I&Os Vital Signs Date Time Temp Pulse Resp B/P (MAP) Pulse Ox O2 Delivery O2 Flow Rate FiO2 07/10/19 09:42 60 07/10/19 09:41 136/58 07/10/19 06:00 98.0 18 98 Room Air I&O- Last 24 Hours up to 6 AM 07/10/19 06:00 Intake Total 820 ml Output Total 1975 ml Balance -1155 ml Laboratory Data Labs 24H Laboratory Tests 2 07/10/19 05:35: Immature Granulocyte % (Auto) 1.2, Neutrophils (%) (Auto) 46.8, Lymphocytes (%) (Auto) 26.2, Monocytes (%) (Auto) 25.0H, Eosinophils (%) (Auto) 0.6, Basophils (%) (Auto) 0.2, Neutrophils # (Auto) 2.3, Lymphocytes # (Auto) 1.3L, Monocytes # (Auto) 1.3H, Eosinophils # (Auto) 0.0, Basophils # (Auto) 0.0, Nucleated Red Blood Cells % (auto) 0.0, Immature Platelet Fraction 12.4H, Prothrombin Time 15.7H, Prothromb Time International Ratio 1.28, Anion Gap 9, Glomerular Filtration Rate 57.0, Calcium Level 8.0L, Total Bilirubin 0.7#, Aspartate Amino Transf (AST/SGOT) 8, Alanine Aminotransferase (ALT/SGPT) 17, Alkaline Phosphatase 68, Total Protein 6.2L, Albumin 3.2, Albumin/Globulin Ratio 1.1L CBC/BMP Laboratory Tests 07/10/19 05:35 Discharge Medications Scheduled Biotin (Biotin) 10,000 Mcg Capsule, 10,000 MCG PO DAILY, (Reported) Calcium Carbonate (Calcium) 600 Mg Tablet, 600 MG PO BID, (Reported) Carvedilol (Carvedilol) 12.5 Mg Tablet, 12.5 MG PO BID, (Reported) Chlorthalidone (Chlorthalidone) 25 Mg Tablet, 12.5 MG PO DAILY, (Reported) Cholecalciferol (Vitamin D3) (Vitamin D3) 1,000 Unit Tablet, 2,000 UNITS PO DAILY, (Reported) Digoxin (Digoxin) 125 Mcg Tablet, 125 MCG PO DAILY, (Reported) Famotidine (Famotidine) 40 Mg Tablet, 40 MG PO BID, (Reported) Losartan Potassium (Losartan Potassium) 50 Mg Tablet, 50 MG PO DAILY, (Reported) Multivitamin (Multivitamins) 1 Each Capsule, 1 CAP PO DAILY, (Reported) Spironolactone (Spironolactone) 25 Mg Tablet, 12.5 MG PO 3XW, (Reported) MON, WED, FRI Sucralfate (Sucralfate) 1 Gm Tablet, 1 GM PO ACHS, (Reported) Scheduled PRN Acetaminophen (Tylenol Extra Strength) 500 Mg Tablet, 1,000 MG PO TID PRN for PAIN, (Reported) Allergies Coded Allergies: Contrast Media (Verified Allergy, Intermediate, RASH, 05/05/19) Penicillins (Verified Allergy, Intermediate, rash, 05/05/19) erythromycin base (Verified Allergy, Intermediate, rash, 05/05/19) lisinopril (Verified Adverse Reaction, Intermediate, cough, 05/05/19) CAITLIN GILL MD July 10, 2019 11:06
== END 2019-07-10 11:22 | disposition home or self-care (01) | DRG 378 ==
LOC: M ED 15:50 → M ED INP 17:25 → ENRESERV 18:22 → M MSPAV 20:03
PROVIDERS: ADMIT Internal Medicine; ATTEND Internal Medicine
PROC: 30233N1 Transfusion of Nonautologous Red Blood Cells into Peripheral Vein, Percutaneous Approach (ICD-10-PCS; 2019-07-07)
PROC: 0DB48ZX Excision of Esophagogastric Junction, Via Natural or Artificial Opening Endoscopic, Diagnostic (ICD-10-PCS; principal; 2019-07-10)
DX: K92.2 Gastrointestinal hemorrhage, unspecified (principal); I48.20 Chronic atrial fibrillation, unspecified; D68.0 Von Willebrand disease; D64.9 Anemia, unspecified; K21.9 Gastro-esophageal reflux disease without esophagitis; I10 Essential (primary) hypertension; I34.0 Nonrheumatic mitral (valve) insufficiency; K31.7 Polyp of stomach and duodenum; M85.80 Other specified disorders of bone density and structure, unspecified site; K74.60 Unspecified cirrhosis of liver; D69.6 Thrombocytopenia, unspecified; Z79.01 Long term (current) use of anticoagulants; Z79.899 Other long term (current) drug therapy; Z88.0 Allergy status to penicillin; Z88.8 Allergy status to other drugs, medicaments and biological substances; Z88.1 Allergy status to other antibiotic agents; Z91.041 Radiographic dye allergy status; Z98.41 Cataract extraction status, right eye; Z98.42 Cataract extraction status, left eye; Z87.891 Personal history of nicotine dependence; Z86.010 Personal history of colon polyps

== ENCOUNTER → 2019-07-07 | Outpatient (CLI) | payer MEDICARE, OTHER ==
[~2019-07-07] MED LIST changes: +ACET-897 PO; +BIOT1CAP3 PO; +CALCTAB7 PO; +FAMO40TA3 PO; -LIDOCAINE 2% INJ 100 MG/5 ML SDV (FOR ANES.) As Ordered ONE; +RANI-397 PO; +SUCR1TA PO; -fentaNYL 100 MCG/2 ML INJECTION (J3010) As Ordered ONE; -propofoL 200 MG/20 ML VIAL As Ordered ONE
--- NOTE | 2019-07-07 11:27 | REPPI ---
REASON FOR EXAM: Dyspnea. COMPARISON: 10/08/2017 a portable exam. FINDINGS: The superior mediastinal structures are midline. The cardiac silhouette is unremarkable in size, shape, and position. The diaphragmatic surfaces of the lungs are regular, and the costophrenic angles are clear. The pulmonary wolff are clear. The imaged osseous structures are intact. IMPRESSION: There is no acute cardiopulmonary disease. Electronically Signed by Khang Montalvo DO 07/07/2019 12:06 P
[2019-07-07 12:42] LABS: BASO % 0.3 % (0.0-1.0); EOS % 0.5 % (0.0-3.0); HEMATOCRIT 21.8 % (36.0-47.0); LYMPH # 1.2 10^3/uL (1.5-5.0); LYMPH % 29.9 % (24.0-44.0); MEAN CORPUSCULAR HEMOGLOBIN 25.4 pg (27.0-33.0); MEAN CORPUSCULAR HGB CONC 30.7 g/dl (32.0-36.5); MEAN CORPUSCULAR VOLUME 82.6 fl (80.0-96.0); MONO % 25.6 % (0.0-5.0); NEUTROPHILS # 1.7 10^3/uL (1.5-8.5); NEUTROPHILS % 42.9 % (36.0-66.0); RED BLOOD COUNT 2.64 10^6/uL (4.00-5.40)
[2019-07-07 12:54] LABS: ALBUMIN 3.7 GM/DL (3.2-5.2); BILIRUBIN,TOTAL 0.6 MG/DL (0.2-1.0); CALCIUM LEVEL 9.2 MG/DL (8.8-10.2); CREATININE FOR GFR 1.3 MG/DL (0.55-1.30); GLOMERULAR FILTRATION RATE 41.6 (>32); POTASSIUM SERUM 4.1 MEQ/L (3.5-5.1); TOTAL PROTEIN 6.8 GM/DL (6.4-8.2)
[2019-07-07 13:00] LABS: HEMOGLOBIN 6.7 g/dl (12.0-15.5); PLATELET COUNT, AUTOMATED 85 10^3/uL (150-450)
[2019-07-07 13:43] LABS: ERYTHROCYTE SEDIMENTATION RATE 51 mm/hr (0-30)
== END ==
LOC: M PLAIMG 10:38
PROVIDERS: ATTEND Internal Medicine Cardiovascular Disease
DX: R06.02 Shortness of breath (principal); I11.9 Hypertensive heart disease without heart failure; I34.0 Nonrheumatic mitral (valve) insufficiency

== ENCOUNTER → 2019-07-27 | Outpatient (REF) | payer MEDICARE, OTHER ==
[~2019-07-27] MED LIST changes: +ACET-897 PO; +BIOT1CAP3 PO; +CALCTAB7 PO; +FAMO40TA3 PO; +XARE10TA PO
[2019-07-27 15:41] LABS: BASO % 0.2 % (0.0-1.0); EOS % 0.2 % (0.0-3.0); HEMATOCRIT 34.1 % (36.0-47.0); HEMOGLOBIN 10.5 g/dl (12.0-15.5); LYMPH # 1.3 10^3/uL (1.5-5.0); LYMPH % 24.7 % (24.0-44.0); MEAN CORPUSCULAR HEMOGLOBIN 26.3 pg (27.0-33.0); MEAN CORPUSCULAR HGB CONC 30.8 g/dl (32.0-36.5); MEAN CORPUSCULAR VOLUME 85.5 fl (80.0-96.0); MONO # 1.1 10^3/uL (0.0-0.8); MONO % 19.3 % (0.0-5.0); NEUTROPHILS % 54.3 % (36.0-66.0); PLATELET COUNT, AUTOMATED 116 10^3/uL (150-450); RED BLOOD COUNT 3.99 10^6/uL (4.00-5.40); WHITE BLOOD COUNT 5.4 10^3/uL (4.0-10.0)
[2019-07-27 16:14] LABS: PERCENT SATURATION 14.3 % (13.2-45.0)
== END ==
LOC: M SFHCPLAZ 13:58
PROVIDERS: ATTEND Internal Medicine
DX: D69.6 Thrombocytopenia, unspecified (principal); I10 Essential (primary) hypertension; D50.0 Iron deficiency anemia secondary to blood loss (chronic)
CPT/HCPCS: 36415; 80061; 82728; 83550; 85025; 85046; G0463

== ENCOUNTER → 2019-07-31 | Outpatient (CLI) | payer MEDICARE, OTHER | LOC: M LABSMTC 11:24 | PROVIDERS: ATTEND Anesthesiology | DX: Z01.818 Encounter for other preprocedural examination (principal); Z11.59 Encounter for screening for other viral diseases | CPT/HCPCS: C9803; U0003 ==

== ENCOUNTER 2019-08-03 09:55 | Day surgery (SDC) | payer MEDICARE, OTHER ==
[~2019-08-03] VITALS: Ht 165.1 cm; Wt 82.1 kg
[~2019-08-03 09:55] MED LIST changes: +NS 1,000 ML IV ONE
[2019-08-03] MEDS ORDERED: fentaNYL 100 MCG/2 ML INJECTION (J3010) As Ordered ONE (10:35)
[2019-08-03] MEDS ORDERED: propofoL 200 MG/20 ML VIAL As Ordered ONE ×2 (11:52→12:16)
[2019-08-03] MEDS ORDERED: LIDOCAINE 2% 100MG/5ML SDV (FOR ANES.) As Ordered ONE (11:52)
[2019-08-03] MEDS ORDERED: ONDANSETRON 4MG/2ML VIAL As Ordered ONE (12:26)
--- NOTE | 2019-08-03 12:46 | ROOR ---
Patient Name: Valencia Fischer Procedure Date: 08/03/2019 11:48 AM Date of : 1935 Age: 84 Room: [facility] Gender: Female Note Status: Finalized Procedure: Upper GI endoscopy Indications: Therapeutic procedure, For therapy of gastric polyps. Pt with known large and multiple hemorrhagic fundic gland polyps. Providers: Jerry GAN MD Referring MD: Dar Quinn MD Requesting Provider: Medicines: Monitored Anesthesia Care Complications: No immediate complications. Procedure: Pre-Anesthesia Assessment: - The heart rate, respiratory rate, oxygen saturations, blood pressure, adequacy of pulmonary ventilation, and response to care were monitored throughout the procedure. The Endoscope was introduced through the mouth, and advanced to the second part of duodenum. The upper GI endoscopy was accomplished without difficulty. The patient tolerated the procedure well. Findings: Multiple 5 to 20 mm sessile fundic gland polyps with stigmata of recent bleeding were found in the gastric fundus and in the gastric body. The polyp was removed with a cold snare. Polyp resection was incomplete, and the resected tissue was partially retrieved. The exam was otherwise without abnormality. Impression: - Multiple (100's) fundic gland polyps. Many of the largest polyps resected. many of the hemorrhagic appearing polyps were resected. Polyp resection was incomplete, and the resected tissue was partially retrieved. - The examination was otherwise normal. Recommendation: - Resume Xarelto (rivaroxaban) at prior dose in 2 days. - Observe patient's clinical course. - Return to my office in 3 months. Jerry Gan MD Jerry GAN MD 08/03/2019 12:46:30 PM Electronically signed by Jerry GAN MD Number of Addenda: 0 Note Initiated On: 08/03/2019 11:48 AM Estimated Blood Loss: Estimated blood loss: none.
[2019-08-03 13:10] VITALS: BP 148/66
== END 2019-08-03 13:19 | disposition home or self-care (01) ==
LOC: M OPP 09:55
PROVIDERS: ATTEND Internal Medicine Gastroenterology
DX: K31.7 Polyp of stomach and duodenum (principal); I48.91 Unspecified atrial fibrillation; Z79.899 Other long term (current) drug therapy; Z88.0 Allergy status to penicillin; Z88.8 Allergy status to other drugs, medicaments and biological substances; Z91.041 Radiographic dye allergy status
CPT/HCPCS: 43251; 88305; J2405; J3010

== ENCOUNTER 2019-09-02 08:04 | Outpatient (CLI) | payer MEDICARE, OTHER ==
[~2019-09-02] VITALS: Ht 165.1 cm; Wt 68.1 kg
[~2019-09-02 08:04] MED LIST changes: +ACETAMINOPHEN TAB 650MG DOSE (2X325MG) PO SCH; +AMLO1TAB24 PO; -AMLO5TAB6 PO; +CALC-211 PO; -CALCTAB7 PO; +D31000TA2 PO; -NS 1,000 ML IV ONE; -VITAD1000T PO; +diphenhydrAMINE 25MG CAP PO SCH
[2019-09-02 08:05] VITALS: BP 115/58
[2019-09-02 10:03] VITALS: BP 117/58
[2019-09-02 11:00] VITALS: BP 127/56
[2019-09-02 12:00] VITALS: BP 145/67
[2019-09-02 13:15] VITALS: BP 108/56
[2019-09-02 13:45] VITALS: BP 103/49
[2019-12-08] MEDS ORDERED: BIOTIN PO (10:26)
[2019-12-08] MEDS ORDERED: FLEC50HA PO (10:26)
[2019-12-08] MEDS ORDERED: CARV6.25 PO (10:26)
== END 2019-09-02 13:45 | disposition home or self-care (01) ==
LOC: M INFU 08:04
PROVIDERS: ATTEND Internal Medicine Medical Oncology
DX: D64.9 Anemia, unspecified (principal)
CPT/HCPCS: 36415; 36430; 86850; 86900; 86901; 86920; P9016

== ENCOUNTER 2019-09-04 00:22 | Emergency (ER) | payer MEDICARE, OTHER ==
[~2019-09-04] VITALS: Ht 162.6 cm; Wt 68.2 kg
[~2019-09-04 00:22] MED LIST changes: -ACETAMINOPHEN TAB 650MG DOSE (2X325MG) PO SCH; -AMLO1TAB24 PO; +AMLO5TAB6 PO; -CALC-211 PO; +CALCTAB7 PO; -D31000TA2 PO; +VITAD1000T PO; -diphenhydrAMINE 25MG CAP PO SCH
[2019-09-04] MEDS ORDERED: METOPROLOL TART 25 MG TABLET PO ONE (01:30)
[2019-09-04 01:45] LABS: BASO % 0.4 % (0.0-1.0); EOS % 0.5 % (0.0-3.0); HEMATOCRIT 39.4 % (36.0-47.0); HEMOGLOBIN 12.5 g/dl (12.0-15.5); LYMPH # 2.2 10^3/uL (1.5-5.0); LYMPH % 27.5 % (24.0-44.0); MEAN CORPUSCULAR HEMOGLOBIN 26.4 pg (27.0-33.0); MEAN CORPUSCULAR HGB CONC 31.7 g/dl (32.0-36.5); MEAN CORPUSCULAR VOLUME 83.3 fl (80.0-96.0); MONO % 25.6 % (0.0-5.0); NEUTROPHILS # 3.5 10^3/uL (1.5-8.5); RED BLOOD COUNT 4.73 10^6/uL (4.00-5.40); WHITE BLOOD COUNT 7.9 10^3/uL (4.0-10.0)
[2019-09-04] MEDS: METOPROLOL 5 MG/5 ML VIAL IV SCH ×2 (01:47→02:31)
[2019-09-04 02:20] LABS: PLATELET COUNT, AUTOMATED 90 10^3/uL (150-450)
[2019-09-04 02:25] LABS: BLOOD UREA NITROGEN 27 MG/DL (7-18); CALCIUM LEVEL 9.6 MG/DL (8.8-10.2); CARBON DIOXIDE LEVEL 26 MEQ/L (21-32); CHLORIDE LEVEL 107 MEQ/L (98-107); CK-MB VALUE MASS 1.1 NG/ML (<3.6); CPK CREATINE PHOSPHOKINASE 87 U/L (26-192); CREATININE FOR GFR 1.19 MG/DL (0.55-1.30); DIGOXIN LEVEL 0.7 NG/ML (0.5-2.0); GLOMERULAR FILTRATION RATE 46.1 (>32); GLUCOSE, FASTING 119 MG/DL (70-100); MB/CK RELATIVE INDEX 1.26 (< OR =4); POTASSIUM SERUM 3.9 MEQ/L (3.5-5.1); SODIUM LEVEL 139 MEQ/L (136-145); TROPONIN I < 0.02 NG/ML (< 0.10)
[2019-09-04 02:30] VITALS: BP 120/62
--- NOTE | 2019-09-04 08:37 | REP ---
REASON: Chest pain. FINDINGS: The technique utilized in obtaining the radiograph has magnified the cardiac silhouette and accentuated the interstitial markings. The superior mediastinal structures are midline. The cardiac silhouette is unremarkable in size, shape, and position. The diaphragmatic surfaces of the lungs are regular, and the costophrenic angles are clear. The pulmonary wolff are clear. The imaged osseous structures are intact. IMPRESSION: There is no acute cardiopulmonary disease. Electronically Signed by Khang Montalvo DO 09/04/2019 09:18 A
--- NOTE | 2019-09-04 10:40 | ECGEPIP ---
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
--- NOTE | 2019-09-04 10:43 | ECGEPIP ---
[facility] - ED Test Date: 2019-09-04 Pat Name: KRISTEN PETERSEN Department: Room: - Gender: Female Grey Percher: MR : 1935 Requested By: Judah Jerez Order Number: [id number] Reading MD: Julia Batista Measurements Intervals [place] Rate: 59 P: 13 AK: 149 QRS: 2 QRSD: 85 T: 2 QT: 368 QTc: 366 Interpretive Statements SINUS BRADYCARDIA NONSPECIFIC ST & T-WAVE ABNORMALITY ATRIAL FIB PRIOR 09/04/19 Electronically Signed on 09-04-2019 10:42:51 EDT by Julia Batista
== END 2019-09-04 05:48 | disposition home or self-care (01) ==
LOC: M ED 00:22
DX: I48.0 Paroxysmal atrial fibrillation (principal); R00.1 Bradycardia, unspecified; I48.91 Unspecified atrial fibrillation; R94.31 Abnormal electrocardiogram [ECG] [EKG]; I10 Essential (primary) hypertension; Z79.899 Other long term (current) drug therapy; Z91.041 Radiographic dye allergy status; Z88.2 Allergy status to sulfonamides; Z88.0 Allergy status to penicillin; Z88.8 Allergy status to other drugs, medicaments and biological substances

== ENCOUNTER → 2019-09-09 | Outpatient (CLI) | payer MEDICARE, OTHER ==
[~2019-09-09] MED LIST changes: +AMLO1TAB24 PO; -AMLO5TAB6 PO; +ASPI81TA26 PO; +BIOTIN PO; +CALC-211 PO; -CALCTAB7 PO; +CARV6.25 PO; +D31000TA2 PO; +FLEC50HA PO; +MAGN400C PO; +PLAV1TAB2 PO; +PREV1CAP PO; -VITAD1000T PO
[2019-09-09 15:53] LABS: BASO % 0.4 % (0.0-1.0); EOS # 0.1 10^3/uL (0.0-0.5); EOS % 1.4 % (0.0-3.0); HEMATOCRIT 37.1 % (36.0-47.0); HEMOGLOBIN 11.9 g/dl (12.0-15.5); LYMPH # 1.6 10^3/uL (1.5-5.0); LYMPH % 28.1 % (24.0-44.0); MEAN CORPUSCULAR HEMOGLOBIN 26.9 pg (27.0-33.0); MEAN CORPUSCULAR HGB CONC 32.1 g/dl (32.0-36.5); MEAN CORPUSCULAR VOLUME 83.9 fl (80.0-96.0); MONO # 1.4 10^3/uL (0.0-0.8); MONO % 24.7 % (0.0-5.0); NEUTROPHILS # 2.6 10^3/uL (1.5-8.5); NEUTROPHILS % 44.9 % (36.0-66.0); RED BLOOD COUNT 4.42 10^6/uL (4.00-5.40); WHITE BLOOD COUNT 5.7 10^3/uL (4.0-10.0)
[2019-09-09 15:58] LABS: PLATELET COUNT, AUTOMATED 89 10^3/uL (150-450)
== END ==
LOC: M LAB 15:04
PROVIDERS: ATTEND Internal Medicine Gastroenterology
DX: K31.7 Polyp of stomach and duodenum (principal)

== ENCOUNTER → 2019-09-23 | Outpatient (REF) | payer MEDICARE, OTHER ==
[2019-10-19 13:44] LABS: BASO % 0.2 % (0.0-1.0); EOS # 0.1 10^3/uL (0.0-0.5); EOS % 1.8 % (0.0-3.0); HEMATOCRIT 36.4 % (36.0-47.0); HEMOGLOBIN 11.2 g/dl (12.0-15.5); LYMPH # 1.3 10^3/uL (1.5-5.0); MEAN CORPUSCULAR HGB CONC 30.8 g/dl (32.0-36.5); MEAN CORPUSCULAR VOLUME 84.7 fl (80.0-96.0); MONO # 1.2 10^3/uL (0.0-0.8); MONO % 25.3 % (0.0-5.0); WHITE BLOOD COUNT 4.5 10^3/uL (4.0-10.0)
[2019-10-19 13:51] LABS: PLATELET COUNT, AUTOMATED 93 10^3/uL (150-450)
== END ==
LOC: M WUC 14:13
PROVIDERS: ATTEND Internal Medicine Gastroenterology
DX: K31.7 Polyp of stomach and duodenum (principal)

== ENCOUNTER 2019-10-12 13:58 | Day surgery (SDC) | payer MEDICARE, OTHER ==
[~2019-10-12 13:58] MED LIST changes: -ASPI81TA26 PO; -BIOTIN PO; -CARV6.25 PO; -FLEC50HA PO; -MAGN400C PO; -PLAV1TAB2 PO; -PREV1CAP PO
[2019-10-12] MEDS ORDERED: MIDAZOLAM INJ 2MG/2ML VIAL (J2250 PER 1MG) As Ordered ONE ×3 (14:08→14:34)
[2019-10-12] MEDS ORDERED: LIDOCAINE VISCOUS 2% SOLN 15ML UDC As Ordered ONE (14:10)
--- NOTE | 2019-11-06 13:22 | T-ECHO ---
REFERRING PHYSICIAN: Odilon Amezcua M.D. PROCEDURE PERFORED BY: Jerry Gallagher M.D. PROCEDURE PERFORMED: Transesophageal echocardiogram. PREPROCEDURE DIAGNOSIS: 45-day Watchman post KIM. POSTPROCEDURE DIAGNOSIS: 45-day post Watchman KIM. PRINCIPAL FINDINGS: Watchman in situ left atrial appendage without any significant gap between the left atrial appendage closure device and the left atrial appendage. No color flow Doppler seen within the left atrial appendage or around the Watchman device. No thrombus on the Watchman device. 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 Fung to assist. Dr. Fung was successful at getting esophageal intubation. At this point, I resumed control of the KIM procedure. DESCRIPTION OF PROCEDURE: Patient received a total of 6 mg Midazolam IV during the procedure. Rhythm was sinus. The left ventricle appeared to be normal in size and systolic function with normal regional wall motion and wall thickening. LVF 65% by visual estimate. Right ventricle appeared normal in size and systolic function. Left atrium appeared to be at least mildly enlarged. A left atrial appendage closure device was present and well-seated in the left atrial appendage without any significant gap between the closure device and the left atrial appendage, and no color flow was seen around or within the left atrial appendage. No thrombus was seen on the closure device. Atrial septum appeared intact anatomically. Right atrium normal in size. Right ventricle appeared normal in size and systolic function. No pericardial effusion. Mitral valve appeared structurally normal with mild mitral regurgitation. Aortic valve was 3- cuspid and was normal and without regurgitation. Tricuspid and pulmonic valves normal. Mild pulmonic regurgitation was present. Distal aortic arch and descending thoracic aorta showed mild atherosclerotic plaque. CONCLUSIONS: * Satisfactory placement of left atrial appendage closure device (Watchman) with no significant gap between the closure device and the left atrial appendage, and no flow within the left atrial appendage by color flow Doppler or in the surrounding region between the closure device and the left atrial appendage. No thrombus on the left atrial appendage closure device. * Normal left ventricle size, wall thickness, wall motion, and LV systolic function with LVEF of 65% by visual estimate. * Probable at least mild left atrial dilatation. * Mild atheroma in the distal aortic arch and descending thoracic aorta. Otherwise normal appearing KIM findings. [facility]
[2019-12-08] MEDS ORDERED: BIOTIN PO (10:26)
[2019-12-08] MEDS ORDERED: FLEC50HA PO (10:26)
[2019-12-08] MEDS ORDERED: CARV6.25 PO (10:26)
== END 2019-10-12 16:50 | disposition home or self-care (01) ==
LOC: M SDC 13:58
PROVIDERS: ATTEND Internal Medicine Cardiovascular Disease
DX: Z95.818 Presence of other cardiac implants and grafts (principal); I48.0 Paroxysmal atrial fibrillation; Z79.01 Long term (current) use of anticoagulants; Z79.899 Other long term (current) drug therapy; I11.9 Hypertensive heart disease without heart failure; I34.0 Nonrheumatic mitral (valve) insufficiency; G47.33 Obstructive sleep apnea (adult) (pediatric); Z91.041 Radiographic dye allergy status; Z88.0 Allergy status to penicillin; Z88.1 Allergy status to other antibiotic agents; Z88.8 Allergy status to other drugs, medicaments and biological substances
CPT/HCPCS: 93312; 93320; 93325; J2250

== ENCOUNTER → 2019-10-20 | Outpatient (CLI) | payer MEDICARE, OTHER ==
[~2019-10-20] MED LIST changes: +ASPI81TA26 PO; +BIOTIN PO; +CARV6.25 PO; +FLEC50HA PO; +MAGN400C PO; +PLAV1TAB2 PO; +PREV1CAP PO
[2019-10-20 15:17] LABS: BASO % 0.2 % (0.0-1.0); HEMATOCRIT 34.8 % (36.0-47.0); HEMOGLOBIN 11.1 g/dl (12.0-15.5); LYMPH # 1.2 10^3/uL (1.5-5.0); LYMPH % 28.2 % (24.0-44.0); MEAN CORPUSCULAR HEMOGLOBIN 27.1 pg (27.0-33.0); MEAN CORPUSCULAR HGB CONC 31.9 g/dl (32.0-36.5); MEAN CORPUSCULAR VOLUME 84.9 fl (80.0-96.0); MONO # 1.3 10^3/uL (0.0-0.8); MONO % 29.9 % (0.0-5.0); NEUTROPHILS # 1.8 10^3/uL (1.5-8.5); NEUTROPHILS % 41.2 % (36.0-66.0); PLATELET COUNT, AUTOMATED 93 10^3/uL (150-450); WHITE BLOOD COUNT 4.3 10^3/uL (4.0-10.0)
== END ==
LOC: M PLALAB 10:21
PROVIDERS: ATTEND Internal Medicine Gastroenterology
DX: K31.7 Polyp of stomach and duodenum (principal)

== ENCOUNTER → 2019-10-23 | Outpatient (CLI) | payer MEDICARE, OTHER | LOC: M LABSMTC 13:52 | PROVIDERS: ATTEND Internal Medicine Cardiovascular Disease | DX: Z11.59 Encounter for screening for other viral diseases (principal) ==

== ENCOUNTER → 2019-10-23 | Outpatient (CLI) | payer MEDICARE, OTHER ==
[2019-10-23 15:56] LABS: BASO % 0.4 % (0.0-1.0); EOS % 0.4 % (0.0-3.0); HEMATOCRIT 33.8 % (36.0-47.0); HEMOGLOBIN 10.9 g/dl (12.0-15.5); LYMPH # 1.1 10^3/uL (1.5-5.0); LYMPH % 24.1 % (24.0-44.0); MEAN CORPUSCULAR HGB CONC 32.2 g/dl (32.0-36.5); MEAN CORPUSCULAR VOLUME 83.9 fl (80.0-96.0); MONO # 1.2 10^3/uL (0.0-0.8); MONO % 25.6 % (0.0-5.0); NEUTROPHILS # 2.2 10^3/uL (1.5-8.5); NEUTROPHILS % 48.8 % (36.0-66.0); RED BLOOD COUNT 4.03 10^6/uL (4.00-5.40); WHITE BLOOD COUNT 4.6 10^3/uL (4.0-10.0)
[2019-10-23 16:01] LABS: CALCIUM LEVEL 9.3 MG/DL (8.8-10.2); CREATININE FOR GFR 1.13 MG/DL (0.55-1.30); POTASSIUM SERUM 3.7 MEQ/L (3.5-5.1)
[2019-10-23 16:11] LABS: PLATELET COUNT, AUTOMATED 90 10^3/uL (150-450)
== END ==
LOC: M LAB 14:41
PROVIDERS: ATTEND Internal Medicine Cardiovascular Disease
DX: R07.9 Chest pain, unspecified (principal); Z20.828 Contact with and (suspected) exposure to other viral communicable diseases
CPT/HCPCS: 36415; 80048; 85025; 85049; 85055; C9803; U0003

== ENCOUNTER → 2019-11-18 | Outpatient (CLI) | payer MEDICARE, OTHER ==
[2019-11-18 11:53] LABS: BASO % 0.4 % (0.0-1.0); EOS % 0.8 % (0.0-3.0); HEMOGLOBIN 10.6 g/dl (12.0-15.5); LYMPH # 0.4 10^3/uL (1.5-5.0); LYMPH % 8.5 % (24.0-44.0); MEAN CORPUSCULAR HEMOGLOBIN 26.2 pg (27.0-33.0); MEAN CORPUSCULAR HGB CONC 31.2 g/dl (32.0-36.5); MEAN CORPUSCULAR VOLUME 84.2 fl (80.0-96.0); MONO # 1.8 10^3/uL (0.0-0.8); MONO % 35.8 % (0.0-5.0); NEUTROPHILS # 2.7 10^3/uL (1.5-8.5); NEUTROPHILS % 53.5 % (36.0-66.0); RED BLOOD COUNT 4.04 10^6/uL (4.00-5.40); WHITE BLOOD COUNT 5.1 10^3/uL (4.0-10.0)
[2019-11-18 12:20] LABS: ALBUMIN 3.5 GM/DL (3.2-5.2); BILIRUBIN,TOTAL 0.6 MG/DL (0.2-1.0); CALCIUM LEVEL 8.8 MG/DL (8.8-10.2); CHOLESTEROL RISK RATIO 4.243 (<5); CREATININE FOR GFR 1.02 MG/DL (0.55-1.30); GLOMERULAR FILTRATION RATE 55.1 (>32); MAGNESIUM LEVEL 2.3 MG/DL (1.8-2.4); POTASSIUM SERUM 3.9 MEQ/L (3.5-5.1); TOTAL PROTEIN 6.6 GM/DL (6.4-8.2)
[2019-11-18 12:38] LABS: PLATELET COUNT, AUTOMATED 74 10^3/uL (150-450)
== END ==
LOC: M PLALAB 08:49
PROVIDERS: ATTEND Internal Medicine
DX: D50.0 Iron deficiency anemia secondary to blood loss (chronic) (principal); I10 Essential (primary) hypertension

== ENCOUNTER 2019-11-24 06:43 | Emergency (ER) | payer MEDICARE, OTHER ==
[~2019-11-24] VITALS: Ht 165.1 cm; Wt 69.2 kg
[~2019-11-24 06:43] MED LIST changes: -ASPI81TA26 PO; -BIOTIN PO; -CARV6.25 PO; -FLEC50HA PO; -MAGN400C PO; -PLAV1TAB2 PO; -PREV1CAP PO
[2019-11-24] MEDS ORDERED: PREV1CAP PO (06:58)
[2019-11-24] MEDS ORDERED: MAGN400C PO (06:58)
[2019-11-24] MEDS ORDERED: PLAV1TAB2 PO (06:58)
[2019-11-24] MEDS ORDERED: ASPI81TA26 PO (06:58)
[2019-11-24] MEDS ORDERED: DIGOXIN 0.125 MG TAB PO ONE (07:30)
[2019-11-24] MEDS ORDERED: CARVedilol 12.5 MG TAB PO ONE (07:30)
--- NOTE | 2019-11-24 07:48 | REPVR ---
PROCEDURE INFORMATION: Exam: XR Chest, 1 View Exam date and time: 11/24/2019 7:04 AM Age: 84 years old Clinical indication: Chest pain TECHNIQUE: Imaging protocol: XR of the chest Views: 1 view. COMPARISON: CR PORTABLE CHEST X-RAY 09/04/2019 1:00 AM FINDINGS: Lungs: The pulmonary vasculature is mildly congested. There is mild bibasilar atelectasis. Pleural space: Unremarkable. No pleural effusion. No pneumothorax. Heart/Mediastinum: The cardiomediastinal silhouette is fairly stable in appearance. Bones/joints: Degenerative changes again involve the spine. IMPRESSION: Mild pulmonary vascular congestion. Electronically signed by: Anurag Vizcarra On 11/24/2019 07:48:04 AM
[2019-11-24] MEDS: METOPROLOL 5 MG/5 ML VIAL IV SCH ×3 (07:55→08:05)
[2019-11-24 07:59] LABS: BASO % 0.3 % (0.0-1.0); EOS # 0.1 10^3/uL (0.0-0.5); EOS % 2.2 % (0.0-3.0); HEMATOCRIT 33.7 % (36.0-47.0); HEMOGLOBIN 10.8 g/dl (12.0-15.5); LYMPH # 0.8 10^3/uL (1.5-5.0); LYMPH % 24.7 % (24.0-44.0); MEAN CORPUSCULAR HEMOGLOBIN 26.5 pg (27.0-33.0); MEAN CORPUSCULAR VOLUME 82.8 fl (80.0-96.0); MONO # 0.9 10^3/uL (0.0-0.8); MONO % 27.5 % (0.0-5.0); NEUTROPHILS # 1.5 10^3/uL (1.5-8.5); NEUTROPHILS % 44.7 % (36.0-66.0); RED BLOOD COUNT 4.07 10^6/uL (4.00-5.40); WHITE BLOOD COUNT 3.2 10^3/uL (4.0-10.0)
[2019-11-24 08:05] VITALS: BP 120/57
[2019-11-24 08:07] LABS: INR 1.06
[2019-11-24 08:11] LABS: PLATELET COUNT, AUTOMATED 77 10^3/uL (150-450)
[2019-11-24 08:28] LABS: ALBUMIN 3.6 GM/DL (3.2-5.2); ALT/SGPT 24 U/L (12-78); BILIRUBIN,DIRECT < 0.1 MG/DL (0.0-0.2); BILIRUBIN,TOTAL 0.5 MG/DL (0.2-1.0); LIPASE 423 U/L (73-393); NT-PRO BNP 239 PG/ML (<450); TOTAL PROTEIN 6.8 GM/DL (6.4-8.2)
--- NOTE | 2019-11-24 09:51 | ECGEPIP ---
[facility] - ED Test Date: 2019-11-24 Pat Name: KRISTEN PETERSEN Department: Room: - Gender: Female Foiling Machine Operator: tory lizarraga : 1935 Requested By: CHUY Carrasco Order Number: [id number] Reading MD: Judah Barkley Measurements Intervals [place] Rate: 108 P: ND: 0 QRS: 9 QRSD: 86 T: -7 QT: 257 QTc: 345 Interpretive Statements ATRIAL FIBRILLATION WITH RAPID VENTRICULAR RESPONSE NONSPECIFIC ST & T-WAVE ABNORMALITY RHYTHM/RATE CHANGE COMPARED TO 09/04/19 Electronically Signed on 11-24-2019 9:50:56 EDT by uJdah Barkley
--- NOTE | 2019-11-24 09:52 | ECGEPIP ---
[facility] - ED Test Date: 2019-11-24 Pat Name: KRISTEN PETESREN Department: Room: - Gender: Female Waste Minimization Technician: [facility] : 1935 Requested By: Julia Batista Order Number: [id number] Reading MD: Judah Barkley Measurements Intervals [place] Rate: 95 P: [place]: 0 QRS: 0 QRSD: 81 T: -2 QT: 341 QTc: 430 Interpretive Statements ATRIAL FIBRILLATION WITH ABERRANT CONDUCTION OR VENTRICULAR PREMATURE COMPLEXES NONSPECIFIC ST & T-WAVE ABNORMALITY RATE CHANGE COMPARED TO PRIOR ON SAME DATE Electronically Signed on 11-24-2019 9:52:38 EDT by Judah Barkley
[2019-11-24 13:36] VITALS: BP 111/58
--- NOTE | 2019-11-24 15:24 | ECGEPIP ---
[facility] - ED Test Date: 2019-11-24 Pat Name: KRISTEN PETERSEN Department: Room: - Gender: Female Opening Machine Cleaner: [facility] : 1935 Requested By: Julia Batista Order Number: [id number] Reading MD: Judah Barkley Measurements Intervals [place] Rate: 99 P: [place]: 0 QRS: 9 QRSD: 85 T: 21 QT: 375 QTc: 482 Interpretive Statements ATRIAL FIBRILLATION NONSPECIFIC ST & T-WAVE ABNORMALITY SIMILAR TO PRIOR ON SAME DATE Electronically Signed on 11-24-2019 15:23:59 EDT by Judah Barkley
[2019-12-08] MEDS ORDERED: FLEC50HA PO (10:26)
[2019-12-08] MEDS ORDERED: CARV6.25 PO (10:26)
[2019-12-08] MEDS ORDERED: BIOTIN PO (10:26)
== END 2019-11-24 14:00 | disposition home or self-care (01) ==
LOC: M ED 06:43
DX: I48.91 Unspecified atrial fibrillation (principal); Z98.61 Coronary angioplasty status; Z79.01 Long term (current) use of anticoagulants; Z79.899 Other long term (current) drug therapy; Z88.0 Allergy status to penicillin; Z88.1 Allergy status to other antibiotic agents; Z88.8 Allergy status to other drugs, medicaments and biological substances; Z91.041 Radiographic dye allergy status

== ENCOUNTER → 2019-12-15 | Outpatient (CLI) | payer MEDICARE, OTHER ==
[~2019-12-15] MED LIST changes: +ASPI81TA26 PO; +BIOTIN PO; +CARV6.25 PO; +FLEC50HA PO; +MAGN400C PO; +PLAV1TAB2 PO; +PREV1CAP PO
--- NOTE | 2019-12-15 09:46 | REP ---
INDICATION: SPLENOMAGLY COMPARISON: None. TECHNIQUE: Real time chaves scale ultrasound examination using curved array transducer. FINDINGS: The spleen is normal in contour, size, and echogenicity (splenic index 333) and without focal splenic lesion identified. Left kidney is normal in reniform shape without hydronephrosis and measures 10.2 x 4.1 x 5.1 cm. No ascites in the visualized left upper quadrant. IMPRESSION: Normal limited left upper quadrant ultrasound with normal appearance to the spleen and left kidney. <Electronically signed by Favian Mejias > 12/15/19 [id number]
== END ==
LOC: M RAD 08:55
PROVIDERS: ATTEND Internal Medicine Medical Oncology
DX: R16.1 Splenomegaly, not elsewhere classified (principal)

== ENCOUNTER → 2019-12-18 | Outpatient (REF) | payer MEDICARE, OTHER ==
[2019-12-18 18:37] LABS: BASO % 0.2 % (0.0-1.0); EOS # 0.1 10^3/uL (0.0-0.5); EOS % 1.4 % (0.0-3.0); HEMATOCRIT 32.6 % (36.0-47.0); HEMOGLOBIN 9.9 g/dl (12.0-15.5); LYMPH % 24.8 % (24.0-44.0); MEAN CORPUSCULAR HEMOGLOBIN 26.3 pg (27.0-33.0); MEAN CORPUSCULAR HGB CONC 30.4 g/dl (32.0-36.5); MEAN CORPUSCULAR VOLUME 86.5 fl (80.0-96.0); MONO # 1.1 10^3/uL (0.0-0.8); MONO % 26.9 % (0.0-5.0); NEUTROPHILS # 1.9 10^3/uL (1.5-8.5); RED BLOOD COUNT 3.77 10^6/uL (4.00-5.40); WHITE BLOOD COUNT 4.2 10^3/uL (4.0-10.0)
[2019-12-18 18:38] LABS: PLATELET COUNT, AUTOMATED 83 10^3/uL (150-450)
== END ==
LOC: M PLALAB 16:58
PROVIDERS: ATTEND Internal Medicine Gastroenterology
DX: K31.7 Polyp of stomach and duodenum (principal)

== ENCOUNTER 2020-02-26 19:02 | Inpatient (IN) | payer MEDICARE, OTHER ==
[~2020-02-26] VITALS: Ht 160 cm; Wt 67.9 kg
[~2020-02-26 19:02] MED LIST changes: +MULT1TAB7 PO
[2020-02-26] MEDS ORDERED: NS 1,000 ML IV ONE (19:30)
[2020-02-26] MEDS ORDERED: IBUPROFEN 800 MG TAB PO ONE (19:30)
[2020-02-26] MEDS ORDERED: ACETAMINOPHEN TAB 650MG DOSE (2X325MG) PO ONE (19:30)
[2020-02-26] MEDS ORDERED: ONDANSETRON 4MG/2ML VIAL IV ONE (19:30)
[2020-02-26 19:46] LABS: HEMATOCRIT 34.7 % (36.0-47.0); HEMOGLOBIN 11.1 g/dl (12.0-15.5); MEAN CORPUSCULAR HEMOGLOBIN 27.7 pg (27.0-33.0); MEAN CORPUSCULAR VOLUME 86.5 fl (80.0-96.0); RED BLOOD COUNT 4.01 10^6/uL (4.00-5.40); WHITE BLOOD COUNT 4.1 10^3/uL (4.0-10.0)
[2020-02-26 19:50] LABS: PLATELET COUNT, AUTOMATED 38 10^3/uL (150-450)
[2020-02-26 20:03] LABS: LYMPHOCYTES 12 % (16-44); METAMYELOCYTES 2 % (0-0); MONOCYTES 8 % (0-5); MYELOCYTES 1 % (0-0); NEUTROPHILS 70 % (28-66)
[2020-02-26 20:04] LABS: INR 1.35
[2020-02-26 20:05] LABS: PARTIAL THROMBOPLASTIN TIME 45.3 SECONDS (24.2-38.5)
[2020-02-26 20:06] LABS: PLATELET ESTIMATE MARKED DECREASE (NORMAL)
[2020-02-26 20:08] LABS: D-DIMER QUANT 1644.04 ng/ml (<500); TOXIC VACUOLATION 1+
[2020-02-26 20:26] LABS: ALBUMIN 3.4 GM/DL (3.2-5.2); BILIRUBIN,TOTAL 0.7 MG/DL (0.2-1.0); C REACTIVE PROTEIN QUANTITATIV 18.3 MG/DL (0.00-0.30); CALCIUM LEVEL 7.6 MG/DL (8.8-10.2); CK-MB VALUE MASS 2.1 NG/ML (<3.6); CREATININE FOR GFR 1.62 MG/DL (0.55-1.30); DIGOXIN LEVEL 1.1 NG/ML (0.5-2.0); GLOMERULAR FILTRATION RATE 32.2 (>32); MAGNESIUM LEVEL 2.1 MG/DL (1.8-2.4); MB/CK RELATIVE INDEX 0.25 (< OR =4); POTASSIUM SERUM 3.4 MEQ/L (3.5-5.1); TOTAL PROTEIN 6.8 GM/DL (6.4-8.2); TROPONIN I 0.04 NG/ML (< 0.10)
--- NOTE | 2020-02-26 20:54 | REPVR ---
PROCEDURE INFORMATION: Exam: XR Chest, 1 View Exam date and time: 02/26/2020 8:18 PM Age: 85 years old Clinical indication: Cough and shortness of breath; Additional info: Coronavirus workup TECHNIQUE: Imaging protocol: XR of the chest Views: 1 view. COMPARISON: CR PORTABLE CHEST X-RAY 11/24/2019 7:27 AM FINDINGS: Lungs: Ground-glass airspace consolidation in the left mid lung zone and right lung base. No masses are seen. Pleural space: Unremarkable. No pleural effusion. No pneumothorax. Heart/Mediastinum: Unremarkable. No cardiomegaly. Bones/joints: Unremarkable. IMPRESSION: Bilateral pneumonia. Electronically signed by: Bam Vee On 02/26/2020 20:54:56 PM
[2020-02-26] MEDS ORDERED: QC A650T3 PO (21:26)
--- NOTE | 2020-02-26 22:13 | HPEPDOC ---
[facility] Medical History & Physical Date of Admission Feb 26, 2020 Date of Service: Feb 26, 2020 History and Physical CHIEF COMPLAINT: Shortness of breath HISTORY OF PRESENT ILLNESS: 85-year-old female history of paroxysmal A. fib, HTN, thrombocytopenia who was diagnosed with Covid around [place] approximately 6 days ago who presents to the hospital with increased shortness of breath sputum production and cough as well as loose stools for the past few days which are now improved. Patient was febrile in the ED 104.8 but she denied feeling febrile or having chills. Patient tells me that she's been feeling short of breath upon exertion and feeling very weak at home unable to walk around her house. Patient denies any chest pain or palpitations she denies abdominal pain endorses some loose stools denies any urinary problems denies lower extremity swelling. Tells me she hasn't been eating or drinking much over the past few days as her appetite is decreased and she is not really tolerating much fluids. In conjunction with the diarrhea she's been feeling dehydrated. In the ED chest x-ray done shows bilateral pneumonia. PAST MEDICAL/SURGICAL HISTORY: Paroxysmal A. fib following with cardiology Dr. Amezcua no longer on Xarelto. Currently sinus rhythm Hypertension GERD Mitral regurgitation Osteopenia Thrombocytopenia follows with Dr. Calderon recently underwent bone marrow biopsy earlier this month History of gastric polyps SOCIAL HISTORY: Denies alcohol use Denies tobacco use former smoker. Denies illicit drug use FAMILY HISTORY: Reviewed and noncontributory ALLERGIES: Please see below. REVIEW OF SYSTEMS: 10 point review of systems complete all negative otherwise stated in HPI HOME MEDICATIONS: Please see below. PHYSICAL EXAMINATION: Constitutional: Awake and alert, in no apparent distress ENT: Sclera are clear Respiratory: Decreased breath sounds bilaterally coarse at the bases. No respiratory distress. No use of accessory muscles. Saturating at 92% on room air Cardiovascular: Regular heart rate no JVD Gastrointestinal: Abdomen is soft, non distended, non tender Musculoskeletal: No lower extremity Neurologic: No focal neurological deficit. Mental Status: A&O x3, normal affect Skin: Warm, dry LABORATORY DATA: See below. IMAGING: Chest x-ray shows bilateral pneumonia MICROBIOLOGY: Please see below. ASSESSMENT/PLAN 85-year-old female history of paroxysmal A. fib, HTN, thrombocytopenia who was diagnosed with Covid 6 days ago who presents with increased shortness of breath found to have a bilateral pneumonia. Patient is admitted for management of Covid pneumonia. # Covid pneumonia: Febrile. CXR bilateral pneumonia. IV Rocephin & Azithro. Qtc not prolonged. Fu BCx. IV decadron BID. Started Remdesivir within the window. Trend inflammatory markers daily. D-dimer 1600 ferritin 1900 CRP 18 at time of admission # Thrombocytopenia: Idiopathic at this point being worked up by Dr. 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 I discussed with Dr. Richey harness rigger associate software application engineer today regarding giving her prophylactic Lovenox for Covid infection with her current platelets. He advised we can give Lovenox in conjunction with steroids and monitor her platelets in the morning. Should her platelets worsen he can be consulted. # Mild rhabdomyolysis: CPK 842 at time of admission. Likely due to dehydration and poor oral intake over the past few days. IV fluids. Trend CPK. # OLAMIDE: Again likely due to dehydration. Pre-renal, Fu FeNa. IV fluids and trend BMP. We'll give 2 bags of fluids total and reassess in AM as to keep patient on the drier take off tender side # Paroxysmal A. fib: Follows with Dr. Amezcua. We'll continue beta krish. Has been taken off of Xarelto by Dr. Amezcua. Monitor on telemetry. Sinus rhythm in the ED. She is on tambocor by cardiology which I will continue. # Hyponatremia: NS. Repeat BMP in am. # Hypokalemia: 3.4 on admission. Replace. Monitor. # Hypertension: Currently normotensive. Hold home meds. Monitor and titrate # DVT prophylaxis: Lovenox - renally adjusted prophylactic dose. Monitor platelets. A Yousef Hospitalist Vital Signs Vital Signs Date Time Temp Pulse Resp B/P (MAP) Pulse Ox O2 Delivery O2 Flow Rate FiO2 02/26/20 21:17 99/60 (73) 02/26/20 21:15 71 88 02/26/20 21:00 20 Nasal Cannula 2.0 02/26/20 20:59 102.4 Laboratory Data Labs 24H Laboratory Tests 2 02/26/20 19:36: Immature Granulocyte % (Auto) , Neutrophils (%) (Auto) , Nucleated Red Blood Cells % (auto) 0.0, Neutrophils 70H, Band Neutrophils 7, Lymphocytes (Manual) 12L, Monocytes (Manual) 8H, Metamyelocytes 2H, Myelocytes 1H, Toxic Vacuolation 1+, Platelet Estimate MARKED DECREASE, Immature Platelet Fraction 20.2H, P rothrombin Time 17.0H, Prothromb Time International Ratio 1.35, Activated Partial Thromboplast Time 45.3H, Fibrinogen 641H, D-Dimer, Quantitative 1644.04H, Anion Gap 9, Glomerular Filtration Rate 32.2, Lactic Acid Level 1.7, Calcium Level 7.6L, Magnesium Level 2.1, Ferritin 1905H, Total Bilirubin 0.7, Aspartate Amino Transf (AST/SGOT) 63H, Alanine Aminotransferase (ALT/SGPT) 42, Alkaline Phosphatase 107, Lactate Dehydrogenase 401H, Total Creatine Kinase 842H, Creatine Kinase MB 2.1, Creatine Kinase MB Relative Index 0.25, Troponin I 0.04, C-Reactive Protein, Quantitative 18.30H, Total Protein 6.8, Albumin 3.4, Albumin/Globulin Ratio 1.0L, Digoxin Level 1.1 02/26/20 20:08: POC pH (Misc Panel) 7.469H, POC Base Excess (Misc Panel) -2.0, POC Saturated Percent O2 (Misc) 89L, POC pO2 (Misc Panel) 52.0L, POC pCO2 (Misc Panel) 30.2L, POC HCO3 (Misc Panel) 21.9L, POC Total CO2 (Misc Panel) 23.0 CBC/BMP Laboratory Tests 02/26/20 19:36 Microbiology Microbiology 02/26/20 Blood Culture, Received Pending 02/26/20 Blood Culture, Received Pending Home Medications Scheduled Aspirin (Aspirin EC) 81 Mg Tablet.dr, 81 MG PO DAILY Calcium Carbonate (Calcium) 600 Mg Tablet, 600 MG PO BID Carvedilol (Carvedilol) 6.25 Mg Tablet, 6.25 MG PO BID Chlorthalidone (Chlorthalidone) 25 Mg Tablet, 12.5 MG PO 3XW MON,WED,FRI Cholecalciferol (Vitamin D3) (Vitamin D3) 1,000 Unit Tablet, 1,000 UNITS PO DAILY Digoxin (Digoxin) 125 Mcg Tablet, 125 MCG PO DAILY Flecainide Acetate (Flecainide Acetate) 50 Mg Tablet, 50 MG PO BID Lansoprazole (Prevacid) 30 Mg Capsule.dr, 30 MG PO DAILY Losartan Potassium (Losartan Potassium) 50 Mg Tablet, 50 MG PO DAILY Magnesium Oxide (Magnesium) 400 Mg Capsule, 400 MG PO DAILY Multivitamin with Minerals (Multiple Vitamin) 1 Each Tablet, 1 TAB PO DAILY Spironolactone (Spironolactone) 25 Mg Tablet, 25 MG PO DAILY [biotin 00805 mcg] , 1 TAB PO DAILY Scheduled PRN Acetaminophen (Acetaminophen 8 Hour) 650 Mg Tablet.er, 650 MG PO Q8H PRN for PAIN / FEVER Allergies Coded Allergies: Contrast Media (Verified Allergy, Intermediate, RASH, 07/27/19) Penicillins (Verified Allergy, Intermediate, rash, 07/27/19) erythromycin base (Verified Allergy, Intermediate, rash, 07/27/19) lisinopril (Verified Adverse Reaction, Intermediate, cough, 07/27/19) A-FIB/CHADSVASC A-FIB History Current/History of A-Fib/PAF?: Yes Current PO Anticoag Therapy: Yes SLADE BOLAND MD Feb 26, 2020 22:13
[2020-02-26] MEDS ORDERED: POTASSIUM CHLORIDE 10 MEQ SR TABLET PO ONE (22:15)
[2020-02-26] MEDS: dexameTHASONE 4 MG/ML 1ML VIAL (J1100 PER 1MG) IV SCH (22:45)
[2020-02-26] MEDS: NS 1,000 ML IV SCH (22:46)
[2020-02-26 23:45] VITALS: BP 109/55
[2020-02-27] MEDS ORDERED: SODIUM CHLORIDE 0.9% INJ 10 ML SYR IV ONE
[2020-02-27] MEDS: cefTRIAXone SOD 1 GM in D5W MINI-BAG PLUS 50 ML IV SCH (00:55)
[2020-02-27] MEDS: AZITHROMYCIN INJ 500 MG, VIAL MATE ADAPTER 1 EACH in D5W 250 ML IV SCH (03:08)
[2020-02-27 06:00] VITALS: BP 97/52
[2020-02-27 08:00] VITALS: BP 97/52; O2SAT 97
[2020-02-27 08:17] LABS: HEMATOCRIT 32.8 % (36.0-47.0); HEMOGLOBIN 10.3 g/dl (12.0-15.5); MEAN CORPUSCULAR HEMOGLOBIN 27.3 pg (27.0-33.0); MEAN CORPUSCULAR HGB CONC 31.4 g/dl (32.0-36.5); RED BLOOD COUNT 3.77 10^6/uL (4.00-5.40); WHITE BLOOD COUNT 4.1 10^3/uL (4.0-10.0)
[2020-02-27 08:18] LABS: PLATELET COUNT, AUTOMATED 39 10^3/uL (150-450)
[2020-02-27] MEDS ORDERED: SPIRONOLACTONE 25 MG TAB PO SCH (09:00)
[2020-02-27 09:14] LABS: INR 1.24; PROTHROMBIN TIME 15.9 SECONDS (12.5-14.3)
[2020-02-27 09:16] LABS: PARTIAL THROMBOPLASTIN TIME 37.2 SECONDS (24.2-38.5)
[2020-02-27 09:19] LABS: C REACTIVE PROTEIN QUANTITATIV 15.3 MG/DL (0.00-0.30); TROPONIN I 0.05 NG/ML (< 0.10)
[2020-02-27 09:21] LABS: D-DIMER QUANT 1418.27 ng/ml (<500)
--- NOTE | 2020-02-27 09:26 | ECGEPIP ---
[facility] - ED Test Date: 2020-02-26 Pat Name: KRISTEN PETERSEN Department: Room: [place] [address] Gender: Female Padding Machine Operator: SENTHIL : 1935 Requested By: TRACIE Obando Order Number: [id number] Reading MD: Julia Batista Measurements Intervals [place] Rate: 77 P: 49 MT: 151 QRS: 12 QRSD: 91 T: 0 QT: 253 QTc: 287 Interpretive Statements SINUS RHYTHM NONSPECIFIC ST & T-WAVE ABNORMALITY baseline artifact may affect interpretation Electronically Signed on 02-27-2020 9:26:02 EST by Julia Batista
[2020-02-27] MEDS: CARVedilol 6.25 MG TAB PO SCH ×2 (09:47→19:57)
[2020-02-27] MEDS: dexameTHASONE 4 MG/ML 1ML VIAL (J1100 PER 1MG) IV SCH ×2 (09:47→20:54)
[2020-02-27] MEDS: ENOXAPARIN 30MG/0.3ML SYRINGE (J1650 PER 10MG) SC SCH (09:47)
[2020-02-27] MEDS: FLECAINIDE 50MG TABLET PO SCH ×2 (09:48→20:54)
[2020-02-27] MEDS: ASPIRIN 81 MG ENTERIC TAB PO SCH (09:49)
[2020-02-27] MEDS: MAGNESIUM OXIDE 400 MG TAB (MAG-OX) PO SCH (09:49)
[2020-02-27] MEDS: DIGOXIN 0.125 MG TAB PO SCH (09:50)
[2020-02-27 09:51] LABS: ATYPICAL LYMPH 6 % (0-5); EOSINOPHILS 1 % (0-3); LYMPHOCYTES 11 % (16-44); METAMYELOCYTES 2 % (0-0); MONOCYTES 12 % (0-5); MYELOCYTES 1 % (0-0); NEUTROPHILS 49 % (28-66)
[2020-02-27 09:52] LABS: PLATELET ESTIMATE MARKED DECREASE (NORMAL)
[2020-02-27 09:53] LABS: BURR CELLS 2+; POIKILOCYTOSIS 2+
[2020-02-27] MEDS: NS 1,000 ML IV SCH (10:00)
[2020-02-27 12:00] VITALS: O2SAT 98
[2020-02-27 13:32] LABS: SODIUM,RANDOM URINE 14 MEQ/L; UREA NITROGEN RANDOM URINE 401 MG/DL
--- NOTE | 2020-02-27 14:58 | IPNPDOC ---
Subjective Date Seen The patient was seen on 02/27/20. Subjective Chief Complaint/HPI Mrs. Fischer is a 85-year-old female with paroxysmal atrial fibrillation and thrombocytopenia who presents to the hospital for diarrhea, dyspnea, and cough. She was diagnosed with COVID around [place] time. Of note, last fever on 02/26/2020 at 2100 hrs. This morning, she feels fatigued and short of breath. Otherwise denies any chest pain, abdominal pain, or dysuria. Objective Physical Examination General Exam: Positive: Alert, Cooperative Eye Exam: Positive: EOMI; Negative: Sclera icteric ENT Exam: Positive: Atraumatic Neck Exam: Positive: Supple Chest Exam: Positive: Diminished Heart Exam: Positive: Rate Normal, Regular Rhythm Abdomen Exam: Positive: Normal bowel sounds, Soft; Negative: Tenderness Extremity Exam: Positive: Edema Neuro Exam: Positive: Normal Speech Psych Exam: Positive: Mental status NL, Mood NL Assessment /Plan Assessment Mrs. Fischer is a 85-year-old female with paroxysmal atrial fibrillation and thrombocytopenia who presents to the hospital for fever and hypoxia secondary to COVID pneumonia and rhabdomyolysis. She'll be treated with a 5 day course of Remdesivir and Dexamethasone. Otherwise, she does have rhabdomyolysis. She'll be receiving IV fluids. Diuretics will be stopped Plan/VTE VTE Prophylaxis Ordered?: Yes Plan 1. COVID pneumonia Last fever on 02/26/2020 COVID positive around [place] time Chest x-ray demonstrates bilateral pneumonia On IV Rocephin and IV azithromycin for pneumonia (pro-calcitonin elevated at 18) Remdesivir and Dexamethasone -Oxygen requirement today: 3L 2. Rhabdomyolysis CPK 2100 Acute kidney injury present IV fluids and trend CPK 3. Acute kidney injury Baseline creatinine 1.1 Admission creatinine 1.6 May be secondary to rhabdomyolysis Avoid nephrotoxins and supportive care IV fluids and trend BMP 4. Thrombocytopenia Idiopathic Her process consultant is Dr. Calderon Trend CBC 5. Paroxysmal atrial fibrillation Her housekeeping worker is Dr. 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 DVT prophylaxis Lovenox VS, I&O, 24H, Fishbone Vital Signs/I&O Vital Signs Date Time Temp Pulse Resp B/P (MAP) Pulse Ox O2 Delivery O2 Flow Rate FiO2 02/27/20 09:50 56 1/2/21 09:47 110/65 02/27/20 09:00 3.0 02/27/20 08:00 95.0 18 97 Nasal Cannula I&O- Last 24 Hours up to 6 AM 02/27/20 06:00 Intake Total 1225 ml Balance 1225 ml Laboratory Data 24H LABS Laboratory Tests 2 02/26/20 19:36: Immature Granulocyte % (Auto) , Neutrophils (%) (Auto) , Nucleated Red Blood Cells % (auto) 0.0, Neutrophils 70H, Band Neutrophils 7, Lymphocytes (Manual) 12L, Monocytes (Manual) 8H, Metamyelocytes 2H, Myelocytes 1H, Toxic Vacuolation 1+, Platelet Estimate MARKED DECREASE, Immature Platelet Fraction 20.2H, Pro thrombin Time 17.0H, Prothromb Time International Ratio 1.35, Activated Partial Thromboplast Time 45.3H, Fibrinogen 641H, D-Dimer, Quantitative 1644.04H, Anion Gap 9, Glomerular Filtration Rate 32.2, Lactic Acid Level 1.7, Calcium Level 7.6L, Magnesium Level 2.1, Ferritin 1905H, Total Bilirubin 0.7, Aspartate Amino Transf (AST/SGOT) 63H, Alanine Aminotransferase (ALT/SGPT) 42, Alkaline Phosphatase 107, Lactate Dehydrogenase 401H, Total Creatine Kinase 842H, Creatine Kinase MB 2.1, Creatine Kinase MB Relative Index 0.25, Troponin I 0.04, C-Reactive Protein, Quantitative 18.30H, Total Protein 6.8, Albumin 3.4, Albumin/Globulin Ratio 1.0L, Digoxin Level 1.1 02/26/20 20:08: POC pH (Misc Panel) 7.469H, POC Base Excess (Misc Panel) -2.0, POC Saturated Percent O2 (Misc) 89L, POC pO2 (Misc Panel) 52.0L, POC pCO2 (Misc Panel) 30.2L, POC HCO3 (Misc Panel) 21.9L, POC Total CO2 (Misc Panel) 23.0 02/27/20 07:57: Neutrophils (%) (Auto) , Nucleated Red Blood Cells % (auto) 0.0, Neutrophils 49, Band Neutrophils 18H, Lymphocytes (Manual) 11L, Monocytes (Manual) 12H, Metamyelocytes 2H, Myelocytes 1H, Platelet Estimate MARKED DECREASE, Prothrombin Time 15.9H, Prothromb Time International Ratio 1.24, Activated Partial Thromboplast Time 37.2, Fibrinogen 546H, D-Dimer, Quantitative 1418.27H, Ferritin 2222H, Lactate Dehydrogenase 503H, Total Creatine Kinase 2140#H, Troponin I 0.05#, C-Reactive Protein, Quantitative 15.30H, Eosinophils (Manual) 1, Atypical Lymphocytes 6H, Poikilocytosis 2+, [place] Cells 2+, MX-Gzu-[id number]-Type Natriuretic Peptide 4340H, Triglycerides Level 122, Procalcitonin 17.97 02/27/20 12:45: Urine Random Sodium 14, Urine Random Urea Nitrogen 401 CBC/BMP Laboratory Tests 02/26/20 19:36 02/27/20 07:57 Microbiology Microbiology 02/26/20 Blood Culture, Received Pending 02/26/20 Blood Culture, Received Pending DEDE HUDSON DO Feb 27, 2020 14:58
[2020-02-27 16:00] VITALS: BP 115/55; O2SAT 97
[2020-02-27] MEDS: ACETAMINOPHEN TAB 650MG DOSE (2X325MG) PO PRN (18:39)
[2020-02-27 20:00] VITALS: BP 129/60; O2SAT 97
[2020-02-27] MEDS ORDERED: SODIUM CHLORIDE 0.9% INJ 10 ML SYR IV SCH (23:00)
[2020-02-28] VITALS: O2SAT 95
[2020-02-28] MEDS: cefTRIAXone SOD 1 GM in D5W MINI-BAG PLUS 50 ML IV SCH (00:50)
[2020-02-28] MEDS: AZITHROMYCIN INJ 500 MG, VIAL MATE ADAPTER 1 EACH in D5W 250 ML IV SCH (02:33)
[2020-02-28 04:00] VITALS: O2SAT 95
[2020-02-28 06:00] VITALS: BP 126/87
[2020-02-28 06:25] LABS: BASO % 0.2 % (0.0-1.0); HEMOGLOBIN 9.9 g/dl (12.0-15.5); LYMPH # 0.6 10^3/uL (1.5-5.0); LYMPH % 11.8 % (24.0-44.0); MEAN CORPUSCULAR HEMOGLOBIN 27.3 pg (27.0-33.0); MEAN CORPUSCULAR HGB CONC 31.9 g/dl (32.0-36.5); MEAN CORPUSCULAR VOLUME 85.4 fl (80.0-96.0); MONO # 1.1 10^3/uL (0.0-0.8); MONO % 21.7 % (0.0-5.0); NEUTROPHILS # 3.2 10^3/uL (1.5-8.5); NEUTROPHILS % 63.3 % (36.0-66.0); RED BLOOD COUNT 3.63 10^6/uL (4.00-5.40); WHITE BLOOD COUNT 5.1 10^3/uL (4.0-10.0)
[2020-02-28 06:29] LABS: PLATELET COUNT, AUTOMATED 42 10^3/uL (150-450)
[2020-02-28 07:15] LABS: ALBUMIN 2.4 GM/DL (3.2-5.2); BILIRUBIN,DIRECT 0.1 MG/DL (0.0-0.2); BILIRUBIN,TOTAL 0.3 MG/DL (0.2-1.0); CALCIUM LEVEL 7.2 MG/DL (8.8-10.2); CREATININE FOR GFR 1.12 MG/DL (0.55-1.30); GLOMERULAR FILTRATION RATE 49.3 (>32); MAGNESIUM LEVEL 2.4 MG/DL (1.8-2.4); POTASSIUM SERUM 3.7 MEQ/L (3.5-5.1); TOTAL PROTEIN 5.6 GM/DL (6.4-8.2)
[2020-02-28] MEDS: DIGOXIN 0.125 MG TAB PO SCH (07:30)
[2020-02-28] MEDS: ENOXAPARIN 30MG/0.3ML SYRINGE (J1650 PER 10MG) SC SCH (07:31)
[2020-02-28 08:00] VITALS: O2SAT 95
[2020-02-28] MEDS: dexameTHASONE 4 MG/ML 1ML VIAL (J1100 PER 1MG) IV SCH (08:27)
[2020-02-28 08:28] VITALS: BP 120/86
[2020-02-28] MEDS: ASPIRIN 81 MG ENTERIC TAB PO SCH (08:28)
[2020-02-28] MEDS: FLECAINIDE 50MG TABLET PO SCH (08:28)
[2020-02-28] MEDS: CARVedilol 6.25 MG TAB PO SCH (08:28)
[2020-02-28] MEDS: MAGNESIUM OXIDE 400 MG TAB (MAG-OX) PO SCH (08:29)
[2020-02-28] MEDS: ACETAMINOPHEN TAB 650MG DOSE (2X325MG) PO PRN (08:30)
[2020-02-28 12:00] VITALS: BP 121/58
[2020-02-28] MEDS ORDERED: CEFD1CAP8 PO (13:30)
[2020-02-28] MEDS ORDERED: PRED5PAK PO (13:30)
[2020-02-28] MEDS ORDERED: AZIT500T5 PO (13:30)
--- NOTE | 2020-02-28 23:54 | DS.PDOC ---
Discharge Summary General Date of Admission Feb 26, 2020 at 21:19 Date of Discharge Feb 28, 2020 Attending Physician: DEDE HUDSON DO Discharge Summary PROCEDURES PERFORMED DURING STAY: None ADMITTING DIAGNOSES: 1. COVID PNA 2. Rhabdomyolysis 3. Acute kidney injury 4. Thrombocytopenia 5. Paroxysmal atrial fibrillation DISCHARGE DIAGNOSES: 1. COVID PNA 2. Rhabdomyolysis 3. Acute kidney injury 4. Thrombocytopenia 5. Paroxysmal atrial fibrillation COMPLICATIONS/CHIEF COMPLAINT: Diarrhea Due To Covid-19/Pneumonia Due To Covid- 19. HISTORY OF PRESENT ILLNESS: Mrs Fischer is an 85 year old female with paroxysmal a. fib, HTN, and thrombocytopenia who is here with dyspnea and productive cough. She was initially diagnosed with COVID around Yefri time (about 6 days prior to admission). In has been feeling fatigued at home with diarrhea, dyspnea, and productive cough. She has poor appetite and has not been drink fluids. She came to the ED and had a temperature of 104.8. She was found to have OLAMIDE, rhabdomyolysis, hypoxia requiring 2L NC, and COVID PNA. She may have a superimp osed bacterial infection as her procalcitonin was elevated at 17. HOSPITAL COURSE: During her hospitalization, she improved with IVF, antibiotics, remdesivir, and steroids. She was weaned off of oxygen in 48 hours. She was also a.febrile for 2 days. Her kidneys responded to the fluid and CPK trended downwards. Procalcitonin also trended downwards. Physical therapy worked with her, and she did well. She was anxious about home, but felt well enough to be discharged. She still had fatigue which is understandable since she has an infection. Recommended rest at home. She will continue with one more day of azithromycin and 5 more days of cefdinir. She will be sent home with steroid taper. Her digoxin and Coreg was discontinued due to bradycardia. DISCHARGE MEDICATIONS: Please see below. ALLERGIES: Please see below. PHYSICAL EXAMINATION ON DISCHARGE: VITAL SIGNS: Please see below. GENERAL: Comfortable, in no apparent distress HEENT: Head normocephalic, atraumatic, EOMI, sclera clear CARDIOVASCULAR EXAMINATION: Regular rate and rhythm RESPIRATORY EXAMINATION: Diminished, but clear ABDOMINAL EXAMINATION: Soft, non-tender, normal bowel sounds EXTREMITIES: No pitting edema bilaterally SKIN: Warm and dry NEUROLOGICAL EXAMINATION: CN3-12 grossly intact PSYCHIATRIC EXAMINATION: Normal mood and affect LABORATORY DATA: Please see below. IMAGING: (radiologist impression) CXR Bilateral pneumonia. PROGNOSIS: Stable ACTIVITY: As tolerated. DIET: 2gm sodium DISCHARGE PLAN: Home with home health DISPOSITION: Home, Self-Care. DISCHARGE INSTRUCTIONS: 1. Follow up with PCP within 5 days. Will need to discuss antihypertensive with PCP 2. Follow up with cardiology within 5 days. Will need to discuss Coreg and digoxin with broth mixer 3. Keep appointment with Heme/Onc for thrombocytopenia DISCHARGE CONDITION: Stable. Total time spent on discharge planning, discharge summary, and medication reconciliation: 45 minutes Vital Signs/I&Os Vital Signs Date Time Temp Pulse Resp B/P (MAP) Pulse Ox O2 Delivery O2 Flow Rate FiO2 02/28/20 12:00 96.7 53 19 121/58 (79) 95 Room Air 02/28/20 06:00 2.0 I&O- Last 24 Hours up to 6 AM 02/28/20 06:00 Intake Total 1800 ml Balance 1800 ml Laboratory Data Labs 24H Laboratory Tests 2 02/28/20 06:01: Immature Granulocyte % (Auto) 3.0, Neutrophils (%) (Auto) 63.3, Lymphocytes (%) (Auto) 11.8L, Monocytes (%) (Auto) 21.7H, Eosinophils (%) (Auto) 0.0, Basophils (%) (Auto) 0.2, Neutrophils # (Auto) 3.2, Lymphocytes # (Auto) 0.6L, Monocytes # (Auto) 1.1H, Eosinophils # (Auto) 0.0, Basophils # (Auto) 0.0, Nucleated Red Blood Cells % (auto) 0.0, Immature Platelet Fraction 22.4H, Fibrinogen 516H, Anion Gap 8, Glomerular Filtration Rate 49.3, Calcium Level 7.2L, Magnesium Level 2.4, Ferritin 2317H, Total Bilirubin 0.3#, Direct Bilirubin 0.1, Aspartate Amino Transf (AST/SGOT) 53H, Alanine Aminotransferase (ALT/SGPT) 40, Alkaline Phosphatase 70, Total Creatine Kinase 1204H, UZ-Cix-[id number]-Type Natriuretic Peptide 1772H, Total Protein 5.6L, Albumin 2.4#L, Albumin/Globulin Ratio 0.8L, Procalcitonin 9.4 CBC/BMP Laboratory Tests 02/28/20 06:01 Microbiology Microbiology 02/26/20 Blood Culture - Preliminary, Resulted No Growth after 48 hours. All Specime... 02/26/20 Blood Culture - Preliminary, Resulted No Growth after 48 hours. All Specime... Discharge Medications Scheduled Aspirin (Aspirin EC) 81 Mg Tablet.dr, 81 MG PO DAILY, (Reported) Azithromycin (Azithromycin) 500 Mg Tablet, 1 TAB PO DAILY Only need one dose, please take this dose tomorrow Calcium Carbonate (Calcium) 600 Mg Tablet, 600 MG PO BID, (Reported) Cefdinir (Cefdinir) 300 Mg Capsule, 300 MG PO BID Cholecalciferol (Vitamin D3) (Vitamin D3) 1,000 Unit Tablet, 1,000 UNITS PO DAILY, (Reported) Flecainide Acetate (Flecainide Acetate) 50 Mg Tablet, 50 MG PO BID, (Reported) Lansoprazole (Prevacid) 30 Mg Capsule.dr, 30 MG PO DAILY, (Reported) Magnesium Oxide (Magnesium) 400 Mg Capsule, 400 MG PO DAILY, (Reported) Multivitamin with Minerals (Multiple Vitamin) 1 Each Tablet, 1 TAB PO DAILY, (Reported) Prednisone (Prednisone) 5 Mg Tab.ds.pk, 0 PO ASDIRECTED 6 day dose pack taper [biotin 99813 mcg] , 1 TAB PO DAILY, (Reported) Scheduled PRN Acetaminophen (Acetaminophen 8 Hour) 650 Mg Tablet.er, 650 MG PO Q8H PRN for PAIN / FEVER, (Reported) Allergies Coded Allergies: Contrast Media (Verified Allergy, Intermediate, RASH, 07/27/19) Penicillins (Verified Allergy, Intermediate, rash, 07/27/19) erythromycin base (Verified Allergy, Intermediate, rash, 07/27/19) lisinopril (Verified Adverse Reaction, Intermediate, cough, 07/27/19) DEDE HUDSON DO Feb 28, 2020 23:54
== END 2020-02-28 16:44 | disposition home or self-care (01) | DRG 177 ==
LOC: M ED 19:02 → M ED INP 21:19 → M 4MAIN 23:50
PROVIDERS: ADMIT Family Medicine; ATTEND Internal Medicine
DX: U07.1 COVID-19 (principal); J12.89 Other viral pneumonia; N17.9 Acute kidney failure, unspecified; M62.82 Rhabdomyolysis; E87.1 Hypo-osmolality and hyponatremia; I48.0 Paroxysmal atrial fibrillation; D69.6 Thrombocytopenia, unspecified; I10 Essential (primary) hypertension; Z79.899 Other long term (current) drug therapy; Z79.82 Long term (current) use of aspirin; Z91.041 Radiographic dye allergy status; Z88.0 Allergy status to penicillin; Z88.8 Allergy status to other drugs, medicaments and biological substances; K21.9 Gastro-esophageal reflux disease without esophagitis; I34.0 Nonrheumatic mitral (valve) insufficiency; Z87.891 Personal history of nicotine dependence; E87.6 Hypokalemia

== ENCOUNTER → 2020-04-06 | Outpatient (CLI) | payer MEDICARE, OTHER ==
[~2020-04-06] MED LIST changes: +ASCO250T20 PO; +AZIT500T5 PO; +CEFD1CAP8 PO; +PRED5PAK PO; +ZINC1TAB2 PO
[2020-04-06 16:07] LABS: CREATININE FOR GFR 0.95 MG/DL (0.55-1.30); GLOMERULAR FILTRATION RATE 59.7 (>32)
[2020-04-06 16:15] LABS: HEMATOCRIT 35.5 % (36.0-47.0); MEAN CORPUSCULAR HEMOGLOBIN 28.1 pg (27.0-33.0); MEAN CORPUSCULAR VOLUME 90.6 fl (80.0-96.0); RED BLOOD COUNT 3.92 10^6/uL (4.00-5.40)
[2020-04-06 16:19] LABS: PLATELET COUNT, AUTOMATED 87 10^3/uL (150-450)
[2020-04-06 16:48] LABS: ATYPICAL LYMPH 3 % (0-5); BASOPHILS 3 % (0-1); EOSINOPHILS 5 % (0-3); LYMPHOCYTES 28 % (16-44); METAMYELOCYTES 2 % (0-0); MONOCYTES 6 % (0-5); MYELOCYTES 1 % (0-0); NEUTROPHILS 51 % (28-66)
[2020-04-06 16:49] LABS: ANISOCYTOSIS 1+; PLATELET ESTIMATE DECREASED (NORMAL)
== END ==
LOC: M PLALAB 13:52
PROVIDERS: ATTEND Internal Medicine Gastroenterology
DX: D50.9 Iron deficiency anemia, unspecified (principal)

== ENCOUNTER → 2020-04-25 | Outpatient (CLI) | payer MEDICARE, OTHER ==
[2020-04-25 14:53] LABS: BASO % 0.4 % (0.0-1.0); EOS % 0.6 % (0.0-3.0); HEMATOCRIT 35.2 % (36.0-47.0); HEMOGLOBIN 11.1 g/dl (12.0-15.5); LYMPH # 1.4 10^3/uL (1.5-5.0); LYMPH % 28.5 % (24.0-44.0); MEAN CORPUSCULAR HEMOGLOBIN 28.3 pg (27.0-33.0); MEAN CORPUSCULAR HGB CONC 31.5 g/dl (32.0-36.5); MEAN CORPUSCULAR VOLUME 89.8 fl (80.0-96.0); MONO # 1.1 10^3/uL (0.0-0.8); MONO % 24.1 % (2.0-8.0); NEUTROPHILS # 2.2 10^3/uL (1.5-8.5); NEUTROPHILS % 45.6 % (36.0-66.0); RED BLOOD COUNT 3.92 10^6/uL (4.00-5.40); WHITE BLOOD COUNT 4.7 10^3/uL (4.0-10.0)
[2020-04-25 14:54] LABS: PLATELET COUNT, AUTOMATED 91 10^3/uL (150-450)
[2020-04-25 14:59] LABS: ALBUMIN 4.1 GM/DL (3.2-5.2); CALCIUM LEVEL 8.7 MG/DL (8.8-10.2); CREATININE FOR GFR 0.98 MG/DL (0.55-1.30); GLOMERULAR FILTRATION RATE 57.6 (>32); PHOSPHORUS LEVEL 3.6 MG/DL (2.5-4.9); POTASSIUM SERUM 3.5 MEQ/L (3.5-5.1)
== END ==
LOC: M PLALAB 12:05
PROVIDERS: ATTEND Internal Medicine Cardiovascular Disease
DX: I48.0 Paroxysmal atrial fibrillation (principal); I11.9 Hypertensive heart disease without heart failure; I34.0 Nonrheumatic mitral (valve) insufficiency

== ENCOUNTER → 2020-04-25 | Outpatient (CLI) | payer MEDICARE, OTHER ==
--- NOTE | 2020-04-25 13:13 | REPPI ---
INDICATION: J12.81 PNEUMONIA DUE TO COVID COMPARISON: 02/26/2020 TECHNIQUE: PA and lateral. FINDINGS: The mediastinum and cardiac silhouette are normal/stable. The lung wolff are clear and previously noted infiltrates have resolved. No acute consolidation, effusion, or pneumothorax. Skeletal structures demonstrate stable osteopenia, degenerative changes, and scoliosis. IMPRESSION: 1. No acute cardiopulmonary process appreciated. 2. Previously noted infiltrates resolved. <Electronically signed by Favian Mejias > 04/25/20 [id number]
== END ==
LOC: M PLAIMG 12:02
PROVIDERS: ATTEND Internal Medicine
DX: I48.0 Paroxysmal atrial fibrillation (principal); I11.9 Hypertensive heart disease without heart failure; I34.0 Nonrheumatic mitral (valve) insufficiency; J12.82 Pneumonia due to coronavirus disease 2019

== ENCOUNTER → 2020-06-02 | Outpatient (REF) | payer MEDICARE, OTHER ==
[2020-06-02 13:59] LABS: MEAN CORPUSCULAR HEMOGLOBIN 27.9 pg (27.0-33.0); MEAN CORPUSCULAR HGB CONC 31.4 g/dl (32.0-36.5); MEAN CORPUSCULAR VOLUME 88.8 fl (80.0-96.0); RED BLOOD COUNT 3.94 10^6/uL (4.00-5.40); WHITE BLOOD COUNT 3.8 10^3/uL (4.0-10.0)
[2020-06-02 14:28] LABS: ALBUMIN 3.9 GM/DL (3.2-5.2); BILIRUBIN,TOTAL 0.6 MG/DL (0.2-1.0); CHOLESTEROL RISK RATIO 4.23 (<5); CREATININE FOR GFR 0.99 MG/DL (0.55-1.30); GLOMERULAR FILTRATION RATE 56.9 (>32); MAGNESIUM LEVEL 2.4 MG/DL (1.8-2.4); TOTAL PROTEIN 6.9 GM/DL (6.4-8.2)
[2020-06-02 14:35] LABS: PLATELET COUNT, AUTOMATED 84 10^3/uL (150-450)
[2020-06-02 14:56] LABS: ATYPICAL LYMPH 2 % (0-5); BASOPHILS 2 % (0-1); EOSINOPHILS 3 % (0-3); LYMPHOCYTES 48 % (16-44); MONOCYTES 9 % (0-5); NEUTROPHILS 33 % (28-66)
[2020-06-02 14:58] LABS: PLATELET ESTIMATE DECREASED (NORMAL)
== END ==
LOC: M PLALAB 08:36
PROVIDERS: ATTEND Internal Medicine
DX: D50.0 Iron deficiency anemia secondary to blood loss (chronic) (principal); I10 Essential (primary) hypertension; I25.10 Atherosclerotic heart disease of native coronary artery without angina pectoris

== ENCOUNTER → 2020-07-14 | Outpatient (REF) | payer MEDICARE, OTHER ==
[2020-07-14 18:13] LABS: CREATININE FOR GFR 1.42 MG/DL (0.55-1.30); GLOMERULAR FILTRATION RATE 37.5 (>32)
== END ==
LOC: M PLALAB 16:45
PROVIDERS: ATTEND Ophthalmology
DX: H49.11 Fourth [trochlear] nerve palsy, right eye (principal)

== ENCOUNTER → 2020-08-01 | Outpatient (CLI) | payer MEDICARE, OTHER ==
[~2020-08-01] MED LIST changes: +COVI100V IM; +META28.32 PO; +MIRA3350 PO; +PHILCAP4 PO; +ULTR5TAB PO
[2020-08-01 19:03] LABS: BASO % 0.4 % (0.0-1.0); EOS % 0.7 % (0.0-3.0); HEMATOCRIT 34.1 % (36.0-47.0); HEMOGLOBIN 11.1 g/dl (12.0-15.5); LYMPH # 1.5 10^3/uL (1.5-5.0); LYMPH % 32.2 % (24.0-44.0); MEAN CORPUSCULAR HEMOGLOBIN 28.1 pg (27.0-33.0); MEAN CORPUSCULAR HGB CONC 32.6 g/dl (32.0-36.5); MEAN CORPUSCULAR VOLUME 86.3 fl (80.0-96.0); MONO # 1.2 10^3/uL (0.0-0.8); MONO % 26.1 % (2.0-8.0); NEUTROPHILS # 1.8 10^3/uL (1.5-8.5); NEUTROPHILS % 40.2 % (36.0-66.0); RED BLOOD COUNT 3.95 10^6/uL (4.00-5.40); WHITE BLOOD COUNT 4.6 10^3/uL (4.0-10.0)
[2020-08-01 19:07] LABS: PLATELET COUNT, AUTOMATED 68 10^3/uL (150-450)
[2020-08-01 19:53] LABS: ERYTHROCYTE SEDIMENTATION RATE 35 mm/hr (0-30)
[2020-08-01 20:00] LABS: ALBUMIN 3.9 GM/DL (3.2-5.2); ALT/SGPT 25 U/L (12-78); BILIRUBIN,TOTAL 0.8 MG/DL (0.2-1.0); BLOOD UREA NITROGEN 29 MG/DL (7-18); CARBON DIOXIDE LEVEL 32 MEQ/L (21-32); CHLORIDE LEVEL 104 MEQ/L (98-107); CREATININE FOR GFR 1.26 MG/DL (0.55-1.30); GLOMERULAR FILTRATION RATE 43.1 (>32); GLUCOSE, FASTING 91 MG/DL (70-100); POTASSIUM SERUM 3.7 MEQ/L (3.5-5.1); RHEUMATOID FACTOR QUANT < 10.0 IU/ML (<15.0); SODIUM LEVEL 141 MEQ/L (136-145)
[2020-08-01 20:01] LABS: VITAMIN B12 LEVEL 370 PG/ML
[2020-08-01 20:02] LABS: FOLATE > 24.0 NG/ML
[2020-08-01 20:08] LABS: HEMOGLOBIN A1c 6.1 %
== END ==
LOC: M PLALAB 15:18
PROVIDERS: ATTEND Psychiatry & Neurology Neurology
DX: G62.9 Polyneuropathy, unspecified (principal); H53.2 Diplopia

== ENCOUNTER → 2020-08-07 | Outpatient (CLI) | payer MEDICARE, OTHER ==
--- NOTE | 2020-08-07 16:41 | REP ---
INDICATION: IRON DEFICIENCY ANEMIA. Sitz marker follow-up study. COMPARISON: None. TECHNIQUE: Supine film of the abdomen. KUB. FINDINGS: Bowel gas pattern is unremarkable. There are no visible retained ingested Sitz markers. I am not informed of the date of ingestion. There is a moderate levoconvex curvature in the lumbar spine with degenerative spondylosis changes. Vascular calcifications noted. Flank stripes are intact. There are phleboliths in the pelvis. IMPRESSION: No Sitz markers are visible. Bowel gas pattern is normal. Levoconvex lumbar scoliosis. <Electronically signed by Caleb Hernandez > 08/07/20 [id number]
== END ==
LOC: M RAD 08-03 15:59
PROVIDERS: ATTEND Internal Medicine Gastroenterology
DX: D50.9 Iron deficiency anemia, unspecified (principal); M47.816 Spondylosis without myelopathy or radiculopathy, lumbar region; M41.86 Other forms of scoliosis, lumbar region

== ENCOUNTER → 2020-09-20 | Outpatient (CLI) | payer MEDICARE, OTHER ==
[2020-09-20 15:46] LABS: BASO % 0.5 % (0.0-1.0); EOS % 0.5 % (0.0-3.0); HEMATOCRIT 34.5 % (36.0-47.0); LYMPH # 1.2 10^3/uL (1.5-5.0); LYMPH % 30.2 % (24.0-44.0); MEAN CORPUSCULAR HEMOGLOBIN 27.7 pg (27.0-33.0); MEAN CORPUSCULAR HGB CONC 31.9 g/dl (32.0-36.5); MEAN CORPUSCULAR VOLUME 86.9 fl (80.0-96.0); MONO # 0.9 10^3/uL (0.0-0.8); MONO % 21.9 % (2.0-8.0); NEUTROPHILS # 1.9 10^3/uL (1.5-8.5); NEUTROPHILS % 46.4 % (36.0-66.0); RED BLOOD COUNT 3.97 10^6/uL (4.00-5.40); WHITE BLOOD COUNT 4.1 10^3/uL (4.0-10.0)
[2020-09-20 15:57] LABS: PLATELET COUNT, AUTOMATED 80 10^3/uL (150-450)
[2020-09-20 18:21] LABS: ALBUMIN 4.1 GM/DL (3.2-5.2); BILIRUBIN,TOTAL 0.8 MG/DL (0.2-1.0); CALCIUM LEVEL 10.3 MG/DL (8.8-10.2); CREATININE FOR GFR 1.14 MG/DL (0.55-1.30); GLOMERULAR FILTRATION RATE 48.3 (>32); MAGNESIUM LEVEL 2.2 MG/DL (1.8-2.4); TOTAL PROTEIN 7.2 GM/DL (6.4-8.2)
== END ==
LOC: M PLALAB 14:15
PROVIDERS: ATTEND Internal Medicine
DX: I10 Essential (primary) hypertension (principal); D64.89 Other specified anemias

== ENCOUNTER → 2020-10-21 | Outpatient (CLI) | payer MEDICARE, OTHER | LOC: M PLALAB 15:34 | PROVIDERS: ATTEND Psychiatry & Neurology Neurology | DX: H53.2 Diplopia (principal) ==

== ENCOUNTER → 2020-12-02 | Outpatient (CLI) | payer MEDICARE, OTHER ==
[2020-12-02 15:13] LABS: ALBUMIN 3.8 GM/DL (3.2-5.2); BILIRUBIN,TOTAL 0.8 MG/DL (0.2-1.0); CALCIUM LEVEL 9.3 MG/DL (8.8-10.2); CHOLESTEROL RISK RATIO 4.368 (<5); CREATININE FOR GFR 1.29 MG/DL (0.55-1.30); GLOMERULAR FILTRATION RATE 41.9 (>32); MAGNESIUM LEVEL 2.4 MG/DL (1.8-2.4); POTASSIUM SERUM 4.2 MEQ/L (3.5-5.1)
== END ==
LOC: M PLALAB 09:37
PROVIDERS: ATTEND Internal Medicine
DX: I10 Essential (primary) hypertension (principal); I25.10 Atherosclerotic heart disease of native coronary artery without angina pectoris

== ENCOUNTER → 2020-12-26 | Outpatient (CLI) | payer MEDICARE, OTHER | LOC: M LAB 11:12 | PROVIDERS: ATTEND Internal Medicine Gastroenterology | DX: R19.7 Diarrhea, unspecified (principal) ==

== ENCOUNTER → 2020-12-28 | Outpatient (REF) | payer MEDICARE, OTHER | LOC: M LAB REF 11:41 | PROVIDERS: ATTEND Internal Medicine Gastroenterology | DX: R19.7 Diarrhea, unspecified (principal) ==

== ENCOUNTER → 2021-04-25 | Outpatient (CLI) | payer MEDICARE, OTHER ==
[~2021-04-25] MED LIST changes: -CEFD1CAP8 PO; +CEFD300C41 PO; +CHOL4POW3 PO; -D31000TA2 PO; +FEXO-117 PO; -FEXO180T58 PO; +LOSA50TA28 PO; -LOSA50TA88 PO; +VITA100093 PO
[2021-04-25 16:04] LABS: BASO % 0.4 % (0.0-1.0); EOS % 0.4 % (0.0-3.0); HEMOGLOBIN 10.8 g/dl (12.0-15.5); LYMPH # 1.5 10^3/uL (1.5-5.0); LYMPH % 32.2 % (24.0-44.0); MEAN CORPUSCULAR HEMOGLOBIN 27.4 pg (27.0-33.0); MEAN CORPUSCULAR HGB CONC 31.8 g/dl (32.0-36.5); MEAN CORPUSCULAR VOLUME 86.3 fl (80.0-96.0); NEUTROPHILS # 2.1 10^3/uL (1.5-8.5); NEUTROPHILS % 45.6 % (36.0-66.0); RED BLOOD COUNT 3.94 10^6/uL (4.00-5.40); WHITE BLOOD COUNT 4.6 10^3/uL (4.0-10.0)
[2021-04-25 16:30] LABS: PLATELET COUNT, AUTOMATED 81 10^3/uL (150-450)
[2021-04-25 16:34] LABS: BILIRUBIN,TOTAL 0.5 MG/DL (0.2-1.0); CALCIUM LEVEL 9.7 MG/DL (8.8-10.2); CREATININE FOR GFR 1.33 MG/DL (0.55-1.30); GLOMERULAR FILTRATION RATE 40.4 (>32); POTASSIUM SERUM 4.1 MEQ/L (3.5-5.1); TOTAL PROTEIN 7.3 GM/DL (6.4-8.2)
== END ==
LOC: M PLALAB 14:05
PROVIDERS: ATTEND Internal Medicine Cardiovascular Disease
DX: I48.0 Paroxysmal atrial fibrillation (principal); I34.0 Nonrheumatic mitral (valve) insufficiency; I11.9 Hypertensive heart disease without heart failure

== ENCOUNTER → 2021-05-24 | Outpatient (REF) | payer MEDICARE, OTHER ==
[2021-05-26 04:07] LABS: LDL DIRECT 53 mg/dL (0-99)
== END ==
LOC: M LAB REF 12:29
PROVIDERS: ATTEND Internal Medicine
DX: E78.1 Pure hyperglyceridemia (principal)

== ENCOUNTER → 2021-07-11 | Outpatient (REF) | payer MEDICARE, OTHER ==
[~2021-07-11] MED LIST changes: +CHOL4POW14 PO; -CHOL4POW3 PO
== END ==
LOC: M LAB REF 13:03
PROVIDERS: ATTEND Ophthalmology
DX: L91.8 Other hypertrophic disorders of the skin (principal)

== ENCOUNTER → 2021-08-07 | Outpatient (CLI) | payer MEDICARE, OTHER | LOC: M RAD 14:44 | PROVIDERS: ATTEND Internal Medicine Medical Oncology | DX: N28.9 Disorder of kidney and ureter, unspecified (principal) ==

== ENCOUNTER → 2021-10-12 | Outpatient (CLI) | payer MEDICARE, OTHER ==
[~2021-10-12] MED LIST changes: +CHOL378P3 PO; -CHOL4POW14 PO
== END ==
LOC: M RAD 09:15
PROVIDERS: ATTEND Internal Medicine Nephrology
DX: I70.1 Atherosclerosis of renal artery (principal)

== ENCOUNTER → 2022-05-29 | Outpatient (REF) | payer MEDICARE, OTHER ==
[~2022-05-29] MED LIST changes: +CLOP75TA99 PO; +FLUT50SP17; -FLUTISP; -PHILCAP4 PO; +PHILLIPS COLON1 CAP PO; -PLAV1TAB2 PO
[2022-05-29 16:28] LABS: FERRITIN 226.7 NG/ML (7.3-270.7); PERCENT SATURATION 20.7 % (13.2-45.0)
== END ==
LOC: M LAB REF 12:24
PROVIDERS: ATTEND Internal Medicine
DX: D50.9 Iron deficiency anemia, unspecified (principal)

== ENCOUNTER 2022-09-27 12:54 | Emergency (ER) | payer MEDICARE, OTHER ==
[~2022-09-27] VITALS: Ht 165.1 cm; Wt 94.1 kg
[2022-09-27 14:30] LABS: BASO % 0.2 % (0.0-1.0); EOS % 0.5 % (0.0-3.0); HEMATOCRIT 34.2 % (36.0-47.0); HEMOGLOBIN 10.9 g/dl (12.0-15.5); LYMPH # 1.3 10^3/uL (1.5-5.0); LYMPH % 28.6 % (24.0-44.0); MEAN CORPUSCULAR HEMOGLOBIN 27.2 pg (27.0-33.0); MEAN CORPUSCULAR HGB CONC 31.9 g/dl (32.0-36.5); MEAN CORPUSCULAR VOLUME 85.3 fl (80.0-96.0); MONO % 23.2 % (2.0-8.0); NEUTROPHILS # 2.1 10^3/uL (1.5-8.5); NEUTROPHILS % 46.8 % (36.0-66.0); RED BLOOD COUNT 4.01 10^6/uL (4.00-5.40); WHITE BLOOD COUNT 4.4 10^3/uL (4.0-10.0)
[2022-09-27 14:39] LABS: INR 1.06
[2022-09-27 14:40] LABS: PARTIAL THROMBOPLASTIN TIME 33.7 SECONDS (24.8-34.2)
[2022-09-27 14:42] LABS: PLATELET COUNT, AUTOMATED 75 10^3/uL (150-450)
[2022-09-27 14:45] LABS: CALCIUM LEVEL 9.7 MG/DL (8.3-10.6); CREATININE FOR GFR 1.27 MG/DL (0.55-1.30); GLOMERULAR FILTRATION RATE 42.5 (>32); POTASSIUM SERUM 4.3 MMOL/L (3.5-5.1)
[2022-09-27 15:39] VITALS: BP 164/78
[2022-09-27 15:54] VITALS: TEMP 97.4; O2SAT 97
== END 2022-09-27 15:56 | disposition home or self-care (01) ==
LOC: M ED 12:54
DX: R04.0 Epistaxis (principal); I48.91 Unspecified atrial fibrillation; I10 Essential (primary) hypertension; K21.9 Gastro-esophageal reflux disease without esophagitis; D64.9 Anemia, unspecified; G47.33 Obstructive sleep apnea (adult) (pediatric); Z87.442 Personal history of urinary calculi; Z79.82 Long term (current) use of aspirin; Z79.899 Other long term (current) drug therapy; Z88.0 Allergy status to penicillin; Z88.1 Allergy status to other antibiotic agents; Z88.8 Allergy status to other drugs, medicaments and biological substances; Z91.041 Radiographic dye allergy status

== ENCOUNTER → 2022-11-29 | Outpatient (REF) | payer MEDICARE, OTHER ==
[2022-11-29 13:40] LABS: FERRITIN 206.9 NG/ML (7.3-270.7); PERCENT SATURATION 23.8 % (13.2-45.0)
[2022-11-29 13:41] LABS: FOLATE 18.2 NG/ML (>5.4)
== END ==
LOC: M LAB REF 12:12
PROVIDERS: ATTEND Internal Medicine
DX: D50.9 Iron deficiency anemia, unspecified (principal)

== ENCOUNTER → 2023-05-21 | Outpatient (CLI) | payer MEDICARE, OTHER ==
[~2023-05-21] MED LIST changes: +CEFD1CAP9 PO; -CEFD300C41 PO; -FLUT50SP17; +FLUTISP
[2023-05-21 19:57] LABS: BASO % 0.1 % (0.0-1.0); EOS % 0.1 % (0.0-3.0); HEMATOCRIT 33.3 % (36.0-47.0); HEMOGLOBIN 10.7 g/dl (12.0-15.5); LYMPH # 1.8 10^3/uL (1.5-5.0); LYMPH % 25.4 % (24.0-44.0); MEAN CORPUSCULAR HEMOGLOBIN 28.2 pg (27.0-33.0); MEAN CORPUSCULAR HGB CONC 32.1 g/dl (32.0-36.5); MEAN CORPUSCULAR VOLUME 87.9 fl (80.0-96.0); MONO # 2.1 10^3/uL (0.0-0.8); MONO % 29.9 % (2.0-8.0); NEUTROPHILS % 43.5 % (36.0-66.0); RED BLOOD COUNT 3.79 10^6/uL (4.00-5.40)
[2023-05-21 19:59] LABS: PLATELET COUNT, AUTOMATED 92 10^3/uL (150-450)
[2023-05-21 20:22] LABS: URIC ACID 10.8 MG/DL (3.1-7.8)
[2023-05-21 20:24] LABS: C REACTIVE PROTEIN QUANTITATIV 0.5 MG/DL (<1.0)
[2023-05-21 20:26] LABS: ALBUMIN 3.7 G/DL (3.2-5.2); BILIRUBIN,TOTAL 0.5 MG/DL (0.3-1.2); CREATININE FOR GFR 1.38 MG/DL (0.55-1.30); GLOMERULAR FILTRATION RATE 38.5 (>32); POTASSIUM SERUM 4.3 MMOL/L (3.5-5.1); TOTAL PROTEIN 6.4 G/DL (5.7-8.2)
== END ==
LOC: M WUC 15:28
PROVIDERS: ATTEND Internal Medicine Cardiovascular Disease
DX: I48.0 Paroxysmal atrial fibrillation (principal); I34.0 Nonrheumatic mitral (valve) insufficiency; D64.9 Anemia, unspecified; E11.9 Type 2 diabetes mellitus without complications; M10.00 Idiopathic gout, unspecified site; R06.02 Shortness of breath; I27.23 Pulmonary hypertension due to lung diseases and hypoxia

== ENCOUNTER → 2023-05-24 | Outpatient (CLI) | payer MEDICARE, OTHER | LOC: M PLAIMG 14:50 | PROVIDERS: ATTEND Internal Medicine Cardiovascular Disease | DX: I34.0 Nonrheumatic mitral (valve) insufficiency (principal); R06.02 Shortness of breath; I11.9 Hypertensive heart disease without heart failure ==

== ENCOUNTER → 2023-06-06 | Outpatient (REF) | payer MEDICARE, OTHER ==
[~2023-06-06] MED LIST changes: +ALLO100T; +COLC0.6T47
== END ==
LOC: M LAB REF 12:05
PROVIDERS: ATTEND Internal Medicine
DX: M10.9 Gout, unspecified (principal)

== ENCOUNTER 2023-08-21 12:23 | Emergency (ER) | payer MEDICARE, OTHER ==
[~2023-08-21] VITALS: Ht 165.1 cm; Wt 64.5 kg
[2023-08-21 12:23] VITALS: BP 173/74; TEMP 98.2; O2SAT 97
[2023-08-21 14:05] LABS: HEMATOCRIT 31.9 % (36.0-47.0); HEMOGLOBIN 10.2 g/dl (12.0-15.5); MEAN CORPUSCULAR HEMOGLOBIN 28.1 pg (27.0-33.0); MEAN CORPUSCULAR VOLUME 87.9 fl (80.0-96.0); RED BLOOD COUNT 3.63 10^6/uL (4.00-5.40); WHITE BLOOD COUNT 8.9 10^3/uL (4.0-10.0)
[2023-08-21 14:14] LABS: PLATELET COUNT, AUTOMATED 85 10^3/uL (150-450)
[2023-08-21 14:25] LABS: URIC ACID 7.3 MG/DL (3.1-7.8)
[2023-08-21 14:28] LABS: CALCIUM LEVEL 8.8 MG/DL (8.3-10.6); CREATININE FOR GFR 1.23 MG/DL (0.55-1.30); POTASSIUM SERUM 3.5 MMOL/L (3.5-5.1)
[2023-08-21 14:35] LABS: BASOPHILS 1 % (0-1); LYMPHOCYTES 17 % (16-44); MONOCYTES 29 % (0-5); NEUTROPHILS 53 % (28-66); PLATELET ESTIMATE DECREASED (NORMAL)
== END 2023-08-21 15:57 | disposition home or self-care (01) ==
LOC: M ED 12:23
DX: M10.9 Gout, unspecified (principal); I25.10 Atherosclerotic heart disease of native coronary artery without angina pectoris; I48.91 Unspecified atrial fibrillation; I12.9 Hypertensive chronic kidney disease with stage 1 through stage 4 chronic kidney disease, or unspecified chronic kidney disease; Z79.82 Long term (current) use of aspirin; Z79.899 Other long term (current) drug therapy; Z88.0 Allergy status to penicillin; Z88.1 Allergy status to other antibiotic agents; Z88.8 Allergy status to other drugs, medicaments and biological substances; Z91.041 Radiographic dye allergy status

== ENCOUNTER → 2023-08-22 | Outpatient (CLI) | payer MEDICARE, OTHER | LOC: M SOG 11:01 | PROVIDERS: ATTEND Orthopaedic Surgery | DX: M20.11 Hallux valgus (acquired), right foot (principal); M20.12 Hallux valgus (acquired), left foot; M79.671 Pain in right foot; M79.672 Pain in left foot ==

== ENCOUNTER 2023-08-25 00:49 | Emergency (ER) | payer MEDICARE, OTHER ==
[2023-08-25 01:48] LABS: EOS % 0.1 % (0.0-3.0); HEMATOCRIT 28.7 % (36.0-47.0); HEMOGLOBIN 9.2 g/dl (12.0-15.5); LYMPH # 0.7 10^3/uL (1.5-5.0); LYMPH % 8.2 % (24.0-44.0); MEAN CORPUSCULAR HEMOGLOBIN 27.7 pg (27.0-33.0); MEAN CORPUSCULAR HGB CONC 32.1 g/dl (32.0-36.5); MEAN CORPUSCULAR VOLUME 86.4 fl (80.0-96.0); MONO # 1.5 10^3/uL (0.0-0.8); MONO % 16.7 % (2.0-8.0); NEUTROPHILS # 6.3 10^3/uL (1.5-8.5); PLATELET COUNT, AUTOMATED 101 10^3/uL (150-450); RED BLOOD COUNT 3.32 10^6/uL (4.00-5.40); WHITE BLOOD COUNT 8.7 10^3/uL (4.0-10.0)
[2023-08-25] MEDS: NS 500 ML IV ONE (02:00)
[2023-08-25 02:17] LABS: CALCIUM LEVEL 8.8 MG/DL (8.3-10.6); CREATININE FOR GFR 1.39 MG/DL (0.55-1.30); GLOMERULAR FILTRATION RATE 38.2 (>32); MAGNESIUM LEVEL 2.3 MG/DL (1.8-2.4); PHOSPHORUS LEVEL 2.6 MG/DL (2.4-5.1)
[2023-08-25 02:59] LABS: DIGOXIN LEVEL 1.4 NG/ML (0.8-2.0)
[2023-08-25 03:15] VITALS: BP 158/69; TEMP 97.9; O2SAT 97
== END 2023-08-25 03:56 | disposition home or self-care (01) ==
LOC: M ED 00:49
DX: R00.2 Palpitations (principal); E86.0 Dehydration; I48.91 Unspecified atrial fibrillation; I10 Essential (primary) hypertension; Z79.82 Long term (current) use of aspirin; Z79.899 Other long term (current) drug therapy; Z88.0 Allergy status to penicillin; Z88.1 Allergy status to other antibiotic agents; Z88.8 Allergy status to other drugs, medicaments and biological substances; Z91.041 Radiographic dye allergy status

== ENCOUNTER → 2023-09-17 | Outpatient (CLI) | payer MEDICARE, OTHER ==
[~2023-09-17] MED LIST changes: +PRED20TA
== END ==
LOC: M WUC 15:05
PROVIDERS: ATTEND Internal Medicine
DX: M25.551 Pain in right hip (principal); M16.11 Unilateral primary osteoarthritis, right hip

== ENCOUNTER → 2023-09-17 | Outpatient (CLI) | payer MEDICARE, OTHER ==
[2023-09-17 18:08] LABS: BASO % 0.1 % (0.0-1.0); EOS % 0.3 % (0.0-3.0); HEMATOCRIT 31.6 % (36.0-47.0); HEMOGLOBIN 9.7 g/dl (12.0-15.5); LYMPH # 1.1 10^3/uL (1.5-5.0); LYMPH % 16.2 % (24.0-44.0); MEAN CORPUSCULAR HEMOGLOBIN 27.5 pg (27.0-33.0); MEAN CORPUSCULAR HGB CONC 30.7 g/dl (32.0-36.5); MEAN CORPUSCULAR VOLUME 89.5 fl (80.0-96.0); MONO # 2.3 10^3/uL (0.0-0.8); NEUTROPHILS # 3.3 10^3/uL (1.5-8.5); NEUTROPHILS % 48.1 % (36.0-66.0); RED BLOOD COUNT 3.53 10^6/uL (4.00-5.40); WHITE BLOOD COUNT 6.8 10^3/uL (4.0-10.0)
[2023-09-17 18:12] LABS: PLATELET COUNT, AUTOMATED 93 10^3/uL (150-450)
[2023-09-17 18:41] LABS: URIC ACID 5.8 MG/DL (3.1-7.8)
[2023-09-17 18:43] LABS: C REACTIVE PROTEIN QUANTITATIV 2.8 MG/DL (<1.0)
[2023-09-17 18:44] LABS: ALBUMIN 3.5 G/DL (3.2-5.2); BILIRUBIN,TOTAL 0.5 MG/DL (0.3-1.2); CALCIUM LEVEL 8.8 MG/DL (8.3-10.6); CREATININE FOR GFR 1.51 MG/DL (0.55-1.30); GLOMERULAR FILTRATION RATE 34.7 (>32); POTASSIUM SERUM 4.4 MMOL/L (3.5-5.1); TOTAL PROTEIN 5.9 G/DL (5.7-8.2)
== END ==
LOC: M WUC 15:00
PROVIDERS: ATTEND Internal Medicine Cardiovascular Disease
DX: I48.0 Paroxysmal atrial fibrillation (principal); I34.0 Nonrheumatic mitral (valve) insufficiency; I11.9 Hypertensive heart disease without heart failure; M10.00 Idiopathic gout, unspecified site; R06.02 Shortness of breath; I27.23 Pulmonary hypertension due to lung diseases and hypoxia; D64.9 Anemia, unspecified; M25.551 Pain in right hip; M16.11 Unilateral primary osteoarthritis, right hip

== ENCOUNTER → 2023-10-29 | Outpatient (CLI) | payer MEDICARE, OTHER ==
[~2023-10-29] MED LIST changes: +ISOVUE-370 76% 100ML VIAL As Ordered ONE
== END ==
LOC: M RAD 13:02
PROVIDERS: ATTEND Internal Medicine Endocrinology, Diabetes & Metabolism
DX: E04.1 Nontoxic single thyroid nodule (principal)

== ENCOUNTER → 2023-11-26 | Outpatient (REF) | payer MEDICARE, OTHER ==
[~2023-11-26] MED LIST changes: -ISOVUE-370 76% 100ML VIAL As Ordered ONE
== END ==
LOC: M LAB REF 11:48
PROVIDERS: ATTEND Internal Medicine
DX: M10.9 Gout, unspecified (principal)

== ENCOUNTER 2023-12-10 15:20 | Emergency (ER) | payer MEDICARE, OTHER ==
[~2023-12-10] VITALS: Ht 165.1 cm; Wt 65.0 kg
[2023-12-10 16:13] LABS: HEMATOCRIT 32.3 % (36.0-47.0); HEMOGLOBIN 10.2 g/dl (12.0-15.5); MEAN CORPUSCULAR HEMOGLOBIN 28.2 pg (27.0-33.0); MEAN CORPUSCULAR HGB CONC 31.6 g/dl (32.0-36.5); MEAN CORPUSCULAR VOLUME 89.2 fl (80.0-96.0); PLATELET COUNT, AUTOMATED 112 10^3/uL (150-450); RED BLOOD COUNT 3.62 10^6/uL (4.00-5.40); WHITE BLOOD COUNT 8.6 10^3/uL (4.0-10.0)
[2023-12-10 16:35] LABS: LIPASE 62 U/L (12-53)
[2023-12-10 16:37] LABS: ALBUMIN 3.9 G/DL (3.2-5.2); ALKALINE PHOSPHATASE 99 U/L (46-116); ALT/SGPT 16 U/L (7.0-40); AST/SGOT 16 U/L (<34); BILIRUBIN,DIRECT 0.1 MG/DL (<0.4); BILIRUBIN,TOTAL 0.5 MG/DL (0.3-1.2); BLOOD UREA NITROGEN 21 MG/DL (9-23); CALCIUM LEVEL 9.2 MG/DL (8.3-10.6); CARBON DIOXIDE LEVEL 26 MMOL/L (20-31); CHLORIDE LEVEL 109 MMOL/L (98-107); CK-MB VALUE MASS < 1.0 NG/ML (<3.6); CREATININE FOR GFR 1.01 MG/DL (0.55-1.30); GLOMERULAR FILTRATION RATE 55.2 (>32); GLUCOSE, FASTING 105 MG/DL (74-106); POTASSIUM SERUM 4.1 MMOL/L (3.5-5.1); SODIUM LEVEL 142 MMOL/L (136-145); TOTAL PROTEIN 6.7 G/DL (5.7-8.2)
[2023-12-10 16:42] LABS: EOSINOPHILS 2 % (0-3); LYMPHOCYTES 16 % (16-44); MONOCYTES 20 % (0-5); NEUTROPHILS 62 % (28-66)
[2023-12-10 16:43] LABS: CPK CREATINE PHOSPHOKINASE 110 U/L (34-145)
[2023-12-10 16:44] LABS: PLATELET ESTIMATE DECREASED (NORMAL)
[2023-12-10 17:52] LABS: CK-MB VALUE MASS < 1.0 NG/ML (<3.6)
[2023-12-10 17:54] LABS: CPK CREATINE PHOSPHOKINASE 102 U/L (34-145); MB/CK RELATIVE INDEX 0.98 (< OR =4)
[2023-12-10] MEDS: CARVedilol 12.5 MG TAB PO ONE ×2 (18:17→20:32)
[2023-12-10 18:50] LABS: DIGOXIN LEVEL 0.9 NG/ML (0.8-2.0)
[2023-12-10] MEDS: LOSARTAN 50MG TABLET PO ONE (20:33)
[2023-12-10] MEDS: FUROSEMIDE 20MG/2ML VIAL IV ONE (20:33)
[2023-12-10 22:50] VITALS: BP 142/64
[2023-12-10 23:30] VITALS: BP 144/65; TEMP 98.1
[2023-12-10 23:31] VITALS: O2SAT 95
== END 2023-12-10 23:40 | disposition home or self-care (01) ==
LOC: M ED 15:20
DX: I10 Essential (primary) hypertension (principal); Z73.3 Stress, not elsewhere classified; I48.91 Unspecified atrial fibrillation; N18.30 Chronic kidney disease, stage 3 unspecified; M10.9 Gout, unspecified; Z79.82 Long term (current) use of aspirin; Z79.899 Other long term (current) drug therapy; Z88.0 Allergy status to penicillin; Z88.1 Allergy status to other antibiotic agents; Z88.8 Allergy status to other drugs, medicaments and biological substances; Z91.041 Radiographic dye allergy status
CPT/HCPCS: 70450; 71045; 80048; 80076; 80162; 82550; 82553; 83690; 84484; 85025; 93005; 93041; 94760; 96374; 99285; J1940

== ENCOUNTER → 2024-03-02 | Outpatient (CLI) | payer MEDICARE, OTHER ==
[~2024-03-02] MED LIST changes: -FEXO-117 PO; +FEXO-193 PO
[2024-03-02 18:25] LABS: BASO % 0.4 % (0.0-1.0); EOS # 0.1 10^3/uL (0.0-0.5); EOS % 1.3 % (0.0-3.0); HEMATOCRIT 32.6 % (36.0-47.0); LYMPH # 1.3 10^3/uL (1.5-5.0); LYMPH % 28.8 % (24.0-44.0); MEAN CORPUSCULAR HEMOGLOBIN 26.5 pg (27.0-33.0); MEAN CORPUSCULAR HGB CONC 30.7 g/dl (32.0-36.5); MEAN CORPUSCULAR VOLUME 86.2 fl (80.0-96.0); MONO % 22.8 % (2.0-8.0); NEUTROPHILS # 2.1 10^3/uL (1.5-8.5); PLATELET COUNT, AUTOMATED 111 10^3/uL (150-450); RED BLOOD COUNT 3.78 10^6/uL (4.00-5.40); WHITE BLOOD COUNT 4.5 10^3/uL (4.0-10.0)
[2024-03-02 19:46] LABS: ALBUMIN 3.9 G/DL (3.2-5.2); BILIRUBIN,TOTAL 0.6 MG/DL (0.3-1.2); CALCIUM LEVEL 9.4 MG/DL (8.3-10.6); CREATININE FOR GFR 1.13 MG/DL (0.55-1.30); GLOMERULAR FILTRATION RATE 48.4 (>32); POTASSIUM SERUM 4.8 MMOL/L (3.5-5.1); TOTAL PROTEIN 6.7 G/DL (5.7-8.2)
[2024-03-02 19:48] LABS: FOLATE 19.3 NG/ML (>5.4); THYROID STIMULATING HORMONE 1.356 uIU/ML (0.55-4.78)
[2024-03-02 19:55] LABS: HEMOGLOBIN A1c 6.2 % (4.0-6.0)
[2024-03-04 15:54] LABS: T P ELECTROPHORESIS SO 6.6 g/dL (6.1-8.1)
== END ==
LOC: M WUC 13:42
PROVIDERS: ATTEND Psychiatry & Neurology Neurology
DX: G62.9 Polyneuropathy, unspecified (principal); Z79.899 Other long term (current) drug therapy

== ENCOUNTER → 2024-08-31 | Outpatient (REF) | payer MEDICARE, OTHER ==
[~2024-08-31] MED LIST changes: +ALLO300T2; +ESCITALOPRAM
[2024-08-31 18:46] LABS: DIGOXIN LEVEL 1.9 NG/ML (0.8-2.0)
[2024-09-02 09:46] LABS: LDL DIRECT 42 mg/dL (<100)
== END ==
LOC: M LAB REF 17:26
PROVIDERS: ATTEND Internal Medicine
DX: E78.5 Hyperlipidemia, unspecified (principal); M18.31 Unilateral post-traumatic osteoarthritis of first carpometacarpal joint, right hand; I50.32 Chronic diastolic (congestive) heart failure

== ENCOUNTER → 2024-10-08 | Outpatient (REF) | payer MEDICARE, OTHER ==
[~2024-10-08] MED LIST changes: +PRED20TA PO
[2024-10-08 14:13] LABS: CORTISOL AM 31.9 UG/DL (4.3-22.4)
[2024-10-08 14:21] LABS: C REACTIVE PROTEIN QUANTITATIV < 0.50 MG/DL (<1.0); IRON (FE) 77 UG/DL (50-170); PERCENT SATURATION 25.3 % (13.2-45.0)
[2024-10-12 16:22] LABS: LYME TOTAL ANTIBODY CIA <= 0.90 Index (<=0.90)
[2024-10-13 01:42] LABS: BORRELIA SPECIES DNA NOT DETECTED (NOT DETECT)
== END ==
LOC: M LAB REF 12:28
PROVIDERS: ATTEND Internal Medicine
DX: G89.4 Chronic pain syndrome (principal); D64.9 Anemia, unspecified; N18.32 Chronic kidney disease, stage 3b